=== PATIENT | male | born 1965 | race Caucasian/White ===

== ENCOUNTER 2023-06-25 15:53 | Emergency (ER) | payer OTHER, SELFPAY ==
[2023-06-25] VITALS (23 sets, daily range): BP systolic 140–158; BP diastolic 85–102; PULSE 68–87; RESP 20; TEMP 36.8; O2SAT 92–97
[2023-06-25] MEDS: 0.9 % SODIUM CHLORIDE 1000 ml 1,000 ML IV (16:10)
[2023-06-25] MEDS: EPINEPHrine 0.3 MG PEN IM (16:14)
[2023-06-25] MEDS: diphenhydrAMINE 50 MG/ML inj IVP (16:17)
[2023-06-25] MEDS: METHYLPREDNISOLONE SOD SUCC 62.5 MG/ML (125) 125 MG IVP (16:20)
--- NOTE | 2023-06-25 16:24 | ED_ITS ---
HPI - General Adult General Chief complaint: Allergic Reaction Stated complaint: Swollen mouth -difficulty breathing Time Seen by Provider: 06/25/23 16:04 History of Present Illness HPI narrative: Pt experiencing swelling of lips tongue since around 929. Has gotten worse. SOB now, difficulty swallowing. 57-year-old man presenting to the emergency department with concern of potential allergic reaction. He was reporting swelling of his upper lip and tone increasingly difficult to swallow. A little short of breath. By the time I am seeing him he has received diphenhydramine and Solu-Medrol and a dose of epinephrine prescribed by colleague. Reportedly has had urticaria before. No particular exposure. Has been treated for urticarial eruptions particularly associated with summer heat probably with H2 blockers. Has just started to take this more regularly in the evenings. 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 He is starting to feel less of this tingling with more numbness around his mouth since receiving these medications. Also has a L normal saline running. Related Data Previous Rx's Medication Instructions Recorded prednisone 20 mg tablet 20 mg PO BID 3 days #6 tabs 06/25/23 Allergies Allergy/AdvReac Type Severity Reaction Status Date / Time bee venom protein (honey bee) Allergy Unknown Verified 06/25/23 16:04 Review of Systems Status of ROS: Reports: 6 or more systems reviewed and unremarkable except as noted in History and below [facility] Social History Smoking Status: Unknown if ever smoked Exam Narrative: Exam Narrative: Pleasant. NAD. Breathing easily now. Cranial nerves 2-12 intact. Noticeably swollen upper lip. No indication of trauma. Oropharynx with full tongue. I do not hear any stridor. Lungs are clear good air movement. CV RRR no MRG and this is after epinephrine. Abdomen is soft and nontender. Extremities are well perfused without edema. Const: Vital Signs, click to edit/add: Vital Signs - 24 hr 06/25/23 16:02 Pulse Rate [Pulse Oximeter] 68 Respiratory Rate 20 Blood Pressure [Ri ght Upper Arm] 153/102 H Pulse Oximetry 95 Oxygen Delivery Me thod Room Air Documenting provider has reviewed patient's vital signs: yes Course Vital Signs Vital signs: Initial Vital Signs Pulse Rate 68 06/25/23 16:02 Respiratory Rate 20 06/25/23 16:02 Blood Pressure 153/102 H 06/25/23 16:02 Blood Pressure Mean 119 H 06/25/23 16:02 Blood Pressure Position Sitting 06/25/23 16:02 Pulse Oximetry 95 06/25/23 16:02 Oxygen Delivery Method Room Air 06/25/23 16:02 Vital Signs Pulse Rate 68 06/25/23 16:02 Respiratory Rate 20 06/25/23 16:02 Blood Pressure 153/102 H 06/25/23 16:02 Pulse Oximetry 95 06/25/23 16:02 Oxygen Delivery Method Room Air 06/25/23 16:02 Temperature 98.2 F 06/25/23 18:09 Pulse Rate 76 06/25/23 19:30 Respiratory Rate 20 06/25/23 16:02 Blood Pressure 149/94 H 06/25/23 19:01 Pulse Oximetry 94 06/25/23 19:30 Oxygen Delivery Method Room Air 06/25/23 16:02 Medical Decision Making MDM Narrative Medical decision making narrative: Does appear to be having allergic reaction of some sort. Will need to be monitored for some time on environmental monitoring specialist and oximetry. Monitoring for treatment affect. Monitored without further event in the emergency department. On a couple of reassessments over time appears to have less swelling of his upper lip. Reported subjectively less symptoms as well. Stable. See patient discharge plan Medical Records Medical records reviewed: Yes I reviewed the patient's medical records Lab Data Labs: Lab Results 06/25/23 Range/Units 16:05 POC Troponin I 0.00 L (0.01-0.04) ng/ml ECG Data Attestation: I personally reviewed and interpreted this ECG as follows: (Normal sinus rhythm rate of 65. No ischemic changes.) Discharge Plan Discharge Clinical Impression: Anaphylaxis Patient Disposition: Home w/ Parent or Adult Condition: Improved Additional Instructions: Stay well-hydrated. I am prescribing prednisone for the next 3 days. For itch and breakthrough symptoms take diphenhydramine. If start to feel like having quickly increasing difficulty breathing or throat tightness I would also use your EpiPen and present to the emergency department. You might consider formal evaluation/testing with an apple peeler operator for a more clear answer as to what is going on. Problems with mast cells come to mind. Montelukast can be helpful in that case. Maybe discuss all this with your primary care provider? Prescriptions: New prednisone 20 mg tablet 20 mg PO BID 3 Days Qty: 6 1RF Follow Up/Referrals: Provider,Not a Local [Primary Care Provider] - Stand Alone Forms: [employer] Info Instructions
== END 2023-06-25 19:41 | disposition home or self-care (01) ==
PROVIDERS: Student in an Organized Health Care Education/Training Program; Emergency Provider Family Medicine
DX: R13.10 Dysphagia, unspecified (principal); T78.2XXA Anaphylactic shock, unspecified, initial encounter
CPT/HCPCS: 36415; 84484; 93005; 94761; 96372; 96374; 96375; 99284; J0171; J1200; J2930; J7030

== ENCOUNTER 2023-08-28 10:57 | Outpatient (CLI) | payer OTHER, SELFPAY | END 2023-08-28 10:58 | disposition home or self-care (01) | PROVIDERS: Visit Provider Nurse Practitioner Family | DX: Z00.00 Encounter for general adult medical examination without abnormal findings (principal); E78.5 Hyperlipidemia, unspecified; R73.03 Prediabetes; I10 Essential (primary) hypertension; Z12.5 Encounter for screening for malignant neoplasm of prostate | CPT/HCPCS: 80053; 80061; G0103 ==

== ENCOUNTER 2023-11-06 09:24 | Emergency (ER) | payer OTHER, SELFPAY ==
[2023-11-06 09:37] VITALS: BP 160/101; PULSE 68; RESP 16; TEMP 36.8; O2SAT 97; BMI 29.1
--- NOTE | 2023-11-06 11:08 | ED_ITS ---
HPI - General Adult General Chief complaint: GI Bleed Stated complaint: black/tar stool, blood taste in mouth Time Seen by Provider: 11/06/23 11:08 History of Present Illness HPI narrative: Has been having black tarry stools for 5 days. Bloated X3 days. Taste of blood in mouth this morning. States he drinks ETOH every once in a while. Has hx of diverticulitis. Does feel dizzy and light headed. No vomiting. Had hives over body that started 2 months ago. Has been taking pepcid and zafrlukask. 57 year old man presenting to the ER with concern of black sticky stools. This has been going on now for about 5 days. Numerous episodes per day though has only had 1 bowel movement over the last 6 hours at the time of this interview mid day. He noticed that he was tasting some blood in his mouth this morning. Has not had nausea nor is he experienced any hematemesis. Does have a history of diverticulitis. Describes a pretty bad flare though number of years ago. Notes that his testicles were even dark. Severe belly pain at that time. He does not recall exactly where the diverticulitis was. Was not treated here no imaging available to confirm. Did have colonoscopy noting diverticular disease and endoscopy about 10 years ago. Has been taking Pepcid and mast cell stabilizer with history of hives. He says that abdominal pain has been crampy and sharp and diffuse. He has not had a fever. Is actually due about next week for scheduled colonoscopy. The abdominal pain that he has had with diverticulitis flares in the past he demonstrates tends to be pretty much over total abdomen. Related Data Home Medications Medication Instructions Recorded Confirmed acetaminophen 500 mg tablet 500 mg PO ONCE 08/28/23 11/06/23 (Tylenol Extra Strength) amlodipine 10 mg tablet 10 mg PO QDAY 08/28/23 11/06/23 levocetirizine 5 mg tablet 10 mg PO .prn PRN 08/28/23 11/06/23 (Allergy Relief (levocetirizine)) naproxen sodium 220 mg tablet 220 mg PO ONCE 08/28/23 11/06/23 (Aleve) simvastatin 20 mg tablet 20 mg PO QDAY 08/28/23 11/06/23 famotidine 20 mg tablet (Pepcid) 20 mg PO DAILY 11/06/23 11/06/23 zafirlukast 20 mg tablet 20 mg PO Q12H 11/06/23 11/06/23 Previous Rx's Medication Instructions Recorded sertraline 50 mg tablet 100 mg (2 x 50 mg) PO QDAY #180 08/28/23 tabs epinephrine 0.3 mg/0.3 mL 0.3 mg (0.3 mL) IM ONCE #2 ea 09/11/23 injection, auto-injector metformin 1,000 mg tablet 1,000 mg PO BID #180 tabs 10/25/23 Allergies Allergy/AdvReac Type Severity Reaction Status Date / Time bee venom protein (honey bee) Allergy Unknown Verified 11/06/23 09:37 Review of Systems Status of ROS: Reports: 6 or more systems reviewed and unremarkable except as noted in History and below PFSH PFS Medical History Skin cancer (melanoma) ?C43.9 - Malignant melanoma of skin, unspecified (ICD-10) Hyperlipidemia ?E78.5 - Hyperlipidemia, unspecified (ICD-10) Hypertension ?I10 - Essential (primary) hypertension (ICD-10) Urticaria ?L50.9 - Urticaria, unspecified (ICD-10) Depression ?F32.A - Depression, unspecified (ICD-10) Surgical History H/O vasectomy ?Z98.52 - Vasectomy status (ICD-10) Hx of tonsillectomy ?Z90.89 - Acquired absence of other organs (ICD-10) Hx of appendectomy ?Z90.49 - Acquired absence of other specified parts of digestive tract (ICD- 10) H/O arthroscopic knee surgery ?Z98.890 - Other specified postprocedural states (ICD-10) Family History Father Dementia Diabetes Melanoma Mother Cardiovascular disease Stroke Myocardial infarction High blood pressure Brother Depression Suicide Sister Melanoma High blood pressure Thyroid disease Social History Narrative: Lives with his Polly. Two adult children from a previous marriage ages 26 and 29. 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 Physical activity type: walking How many days of moderate to strenuous exercise, like a brisk walk, did you do in the last 7 days: 3 Smoking Status: Never smoker How often do you have a drink containing alcohol: 2-3 times a week Alcohol type: beer Alcohol type details: One beer nightly AUDIT-C Alcohol total score: 3 Non-prescribed substance use: denies use Caffeine: Yes Are you now , , , , never or living with a partner: Social isolation score (0-1 are the most socially isolated patients): 1 Little interest or pleasure in doing things: more than half the days Feeling down, depressed, or hopeless: more than half the days Are you currently sexually active: Yes Exam Narrative: Exam Narrative: Is pleasant. NAD. Rolando complexion to his skin. Breathing easily. Lungs are clear. Heart in regular rate and rhythm. Cranial nerves 2-12 intact removing all extremities out difficulty. He is well-perfused. Abdomen is with normoac tive bowel sounds add is soft. Overweight. Diffusely mildly tender though more so in the right mid upper abdomen. Harding's negative. Absent peritoneal signs. Const: Vital Signs, click to edit/add: Vital Signs - 24 hr 11/06/23 12:03 Pulse Rate [orthos tatic lying] 70 Pulse Rate [orthos tatic sitting] 76 Pulse Rate [orthos tatic standing] 82 Blood Pressure [or thostatic lying] 143/90 H Blood Pressure [or thostatic sitting] 153/101 H Blood Pressure [or thostatic standing ] 150/95 H Documenting provider has reviewed patient's vital signs: yes Course Vital Signs Vital signs: Initial Vital Signs Temperature 98.3 F 11/06/23 09:37 Temperature Source Temporal Artery Scan 11/06/23 09:37 Pulse Rate 68 11/06/23 09:37 Pulse Rhythm Regular 11/06/23 09:37 Pulse Strength 3+ Normal 11/06/23 09:37 Respiratory Rate 16 11/06/23 09:37 Blood Pressure 160/101 H 11/06/23 09:37 Blood Pressure Mean 120 H 11/06/23 09:37 Blood Pressure Position Sitting 11/06/23 09:37 Pulse Oximetry 97 11/06/23 09:37 Oxygen Delivery Method Room Air 11/06/23 09:37 Vital Signs Temperature 98.3 F 11/06/23 09:37 Pulse Rate 68 11/06/23 09:37 Respiratory Rate 16 11/06/23 09:37 Blood Pressure 160/101 H 11/06/23 09:37 Pulse Oximetry 97 11/06/23 09:37 Oxygen Delivery Method Room Air 11/06/23 09:37 Temperature 98.3 F 11/06/23 09:37 Pulse Rate 70 11/06/23 12:03 Respiratory Rate 16 11/06/23 09:37 Blood Pressure 143/90 H 11/06/23 12:03 Pulse Oximetry 97 11/06/23 09:37 Oxygen Delivery Method Room Air 11/06/23 09:37 Medications Administered Medications: Discontinued Medications Generic Name Dose Route Start Last Admin Trade Name Freq PRN Reason Stop Dose Admin Sodium Chloride 1,000 mls @ 1,000 mls/hr 11/06/23 11:21 11/06/23 12:37 0.9 % Sodium Chloride 1000 Ml IV 11/06/23 12:20 Infused .Q1H ONE Infusion Medical Decision Making [facility] Narrative Medical decision making narrative: This may be upper or lower GI bleed given his descriptor. Will try to obtain stool guaiac. Does not have abdominal surgeries. Does not seem to be an obstructive process. Will check labs. I would anticipate treatment for diverticulitis as described. Does not have any other infectious indicators. Does not appear to be septic. He had reported some lightheadedness today. Will check orthostatics. IV placement and a L of fluids with reassessment. Pending hemoglobin to determine next course of action. Not sure that CT imaging would be particularly helpful. If this is indeed GI bleed does have this colonoscopy upcoming soon. Orthostatics are normal though reporting sense of lightheadedness. Labs are reassuring including normal white count. Normal hemoglobin Unclear that this is diverticulitis though consistent with his prior experiences. Did not feel he needed any interventions for pain or nausea during time in the emergency department. No further stool or evidence of bleeding; no stool guaiac collected. See patient discharge plan for further discussion Lab Data Lab results reviewed: Yes I reviewed the patient's lab results Labs: Lab Results 11/06/23 Range/Units 11:37 WBC 7.62 (4.50-11.00) K/uL RBC 5.42 (4.30-5.90) m/uL Hgb 16.1 (13.5-17.5) gm/dL Hct 45.5 (37.0-53.0) % MCV 84 (80-100) fL MCH 30 (26-34) pg MCHC 35 (32-36) gm/dL RDW Coeff of Yelena 11.7 (11.5-15.5) % Plt Count 239 (140-440) K/uL Neut % (Auto) 48.4 (42.0-72.0) % Lymph % (Auto) 39.6 (20-44) % [place] % (Auto) 8.5 (0.0-11.0) % Eos % (Auto) 2.9 (0.0-7.0) % Baso % (Auto) 0.1 (0.0-3.0) % Neut # (Auto) 3.68 (1.7-7.0) K/uL Lymph # (Auto) 3.02 H (0.90-2.90) K/uL [place] # (Auto) 0.60 (0.00-0.90) K/UL Eos # (Auto) 0.22 (0.00-0.50) K/uL Baso # (Auto) 0.01 (0.00-0.30) K/uL Abs Immat Gran (auto) 0.04 (0.00-0.30) K/uL Imm/Tot Granulo (auto) 0.5 % Sodium 138 (135-149) mmol/L Potassium 3.9 (3.6-5.1) mmol/L Chloride 103 (96-114) mmol/L Carbon Dioxide 27 (20-32) mmol/L Anion Gap 8 (7-15) mEq/L BUN 15 (7-30) mg/dL Creatinine 0.8 (0.5-1.5) mg/dL Estimated Creat Clear 93.04 Estimated GFR 104 ml/min Glucose 171 H (60-115) mg/dL Calcium 9.4 (8.4-10.6) mg/dL Total Bilirubin 0.6 (0.1-1.5) mg/dL Direct Bilirubin 0.3 (0.0-0.5) mg/dL AST 34 (12-35) U/L ALT 43 (4-50) U/L Alkaline Phosphatase 71 (40-150) U/L C-Reactive Protein 0.6 (0.5-1.0) mg/dL Total Protein 7.8 (6.0-8.3) g/dL Albumin 4.7 (3.3-5.0) g/dL Lipase 39 (23-300) U/L Discharge Plan Discharge Clinical Impression: Dark stools, Abdominal pain Patient Disposition: Home, Self-Care Condition: Improved Additional Instructions: You may well have diverticulitis. Thankfully your hemoglobin and white count look good. Sometimes after a stomach bug there can be quite a change in stool appearance. This dark stool though may also represent blood that accompanies inflammation. I am happy you have have follow-up colonoscopy shortly. Metronidazole and ciprofloxacin from [facility]. Take these antibiotics for 8 days. Focus on hydration. Return/be seen for marked increase in persistent abdominal pain, worsening lightheadedness, associated fever, repeated vomiting. Prescriptions: No Action simvastatin 20 mg tablet 20 mg PO QDAY levocetirizine [Allergy Relief (levocetirizin)] 5 mg tablet 10 mg PO .prn PRN amlodipine 10 mg tablet 10 mg PO QDAY acetaminophen [Tylenol Extra Strength] 500 mg tablet 500 mg PO ONCE naproxen sodium [Aleve] 220 mg tablet 220 mg PO ONCE sertraline 50 mg tablet 100 mg PO QDAY Qty: 180 3RF famotidine [Pepcid] 20 mg tablet 20 mg PO DAILY zafirlukast 20 mg tablet 20 mg PO Q12H epinephrine 0.3 mg/0.3 mL auto-injector 0.3 mg IM ONCE Qty: 2 0RF Rx Instructions: as a single dose; may repeat once metformin 1,000 mg tablet 1,000 mg PO BID Qty: 180 3RF Follow Up/Referrals: Lilian Paulson CNP [Primary Care Provider] - Stand Alone Forms: [employer] Info Instructions
[2023-11-06] MEDS: 0.9 % SODIUM CHLORIDE 1000 ml 1,000 ML IV (11:40)
[2023-11-06 11:42] LABS: Basophils Absolute Auto 0.01 K/uL (0.00-0.30); Basophils Percent Auto 0.1 % (0.0-3.0); Eosinophils Absolute Auto 0.22 K/uL (0.00-0.50); Eosinophils Percent Auto 2.9 % (0.0-7.0); Hematocrit 45.5 % (37.0-53.0); Hemoglobin* 16.1 gm/dL (13.5-17.5); Immature Granulocytes Abs Auto 0.04 K/uL (0.00-0.30); Immature Granulocytes Pct Auto 0.5 %; Lymphocytes Absolute Auto 3.02 K/uL (0.90-2.90); Lymphocytes Percent Auto 39.6 % (20-44); Mean Corpuscular HGB Conc 35 gm/dL (32-36); Mean Corpuscular Hemoglobin 30 pg (26-34); Mean Corpuscular Volume 84 fL (80-100); Monocytes Percent Auto 8.5 % (0.0-11.0); Neutrophils Absolute Auto 3.68 K/uL (1.7-7.0); Neutrophils Percent Auto 48.4 % (42.0-72.0); Platelet Count* 239 K/uL (140-440); RDW Coefficient of Variation % 11.7 % (11.5-15.5); Red Blood Count 5.42 m/uL (4.30-5.90); White Blood Count* 7.62 K/uL (4.50-11.00)
[2023-11-06 11:44] LABS: Slide Review Reflex No
[2023-11-06 11:56] LABS: Chloride* 103 mmol/L (96-114)
[2023-11-06 11:57] LABS: Potassium* 3.9 mmol/L (3.6-5.1); Sodium* 138 mmol/L (135-149)
[2023-11-06 11:58] LABS: Albumin* 4.7 g/dL (3.3-5.0)
[2023-11-06 11:59] LABS: Creatinine* 0.8 mg/dL (0.5-1.5); Est. Creatinine Clearance* 93.04; Estimated Glomerular Filt Rate 104 ml/min
[2023-11-06 12:00] LABS: Anion Gap 8 mEq/L (7-15); Blood Urea Nitrogen* 15 mg/dL (7-30); Calcium* 9.4 mg/dL (8.4-10.6); Carbon Dioxide* 27 mmol/L (20-32); Glucose* 171 mg/dL (60-115)
[2023-11-06 12:01] LABS: Alanine Aminotransferase* 43 U/L (4-50); Alkaline Phosphatase* 71 U/L (40-150); Aspartate Amino Transferase* 34 U/L (12-35); Bilirubin Direct* 0.3 mg/dL (0.0-0.5); Bilirubin Total* 0.6 mg/dL (0.1-1.5); Lipase* 39 U/L (23-300); Total Protein* 7.8 g/dL (6.0-8.3)
[2023-11-06 12:03] VITALS: BP 143/90; BP 150/95; BP 153/101; PULSE 70; PULSE 76; PULSE 82
[2023-11-06 12:03] LABS: C Reactive Protein* 0.6 mg/dL (0.5-1.0)
== END 2023-11-06 13:23 | disposition home or self-care (01) ==
PROVIDERS: Emergency Provider Family Medicine; PCP Nurse Practitioner Family
DX: R19.5 Other fecal abnormalities (principal); R10.9 Unspecified abdominal pain
CPT/HCPCS: 36415; 80048; 80076; 83690; 85025; 86140; 99283; 99284; J7030

== ENCOUNTER 2024-03-01 08:29 | Outpatient (CLI) | payer OTHER, SELFPAY ==
--- OUTSIDE RECORDS SUMMARY | 2024-03-01 08:33 | XMS_ITS | Encounter Summary ---
Author Organization [facility] Address [address] [place] [address] Care Team Providers Care Brass Molder Helper Name Role Phone Unavailable Primary Care Provider Unavailabl e Reason for Visit * Outpatient (Routine) - Closed Specialty Diagnoses / Procedures Referred By Contdoyle t Referred To Contact Allergy and Immunology Diagnoses Other Urticaria Lilian Paulson, F.N.P. [address] [place] [address] [facility] Referral ID Status Reason Start Date Expiration Date Visits Re quested Visits Authorized [id number] Closed 11/14/2023 05/15/2025 1 1 Encounter Details Date Type Department Care Team (Latest Contact Info) Description 12/01/2023 8:30 AM CDT Comprehensive Visit Division of Allergic Diseases in [place], [place] [address] [place] [address] Arturo Velásquez, M.B.B.S., Ph.D. [address] [place] [address] Other Urticaria Social History Tobacco Use Types Packs/Day Years Used Date Smoking Tobacco: Never Assessed [facility] Utilities Answer Date Recorded In the past 12 months has [employer], gas, oil, or water company threatened to shut off services in your home? No 11/30/2023 Exercise Vital Sign Answer Date Recorde d On average, how many days pe r week do you engage in moderate to strenuous exercise (like a brisk walk)? 1 day 11/30/2023 On average, how many minutes do you engage in exercise at this level? 20 min 11/30/2023 Hunger Vital Sign Answer Date Recorded Within the past 12 months, y ou worried that your food would run out before you got the money to buy more. Never true 11/30/19 24 Within the past 12 months, t he food you bought just didn't last and you didn't have money to get more. Never true 11/30/2023 PRAPARE - Transportation Answer Date Re corded In the past 12 months, has l ack of transportation kept you from medical appointments or from getting medications? No 02/2024 In the past 12 months, has l ack of transportation kept you from meetings, work, or from getting things needed for daily living? No 11/30/2023 Nutrition Answer Date Recorded Nutrition: EVOO Fat Source Unknown 11/29 On average, how many serving s of fruits and vegetables do you eat per day (serving size is equal to 1 cup or approximately the size of a tennis ball)? 3-5 11/30/2023 Dental Answer Date Recorded Dental: Regular Dentist Yes 11/30/19 Employment Answer Date Recorded Employment status Employed and actively working without restrictions 11/30/2023 Housing Stability Answer Date Recorded What is your living situation today? I have a [facility] place to live 11/30/2023 Sex and Gender Information Value Date Recorded Sex Assigned at Male 11/30/2023 3:02 PM CDT Gender Identity Male 11/30/2023 3:02 PM CDT Sexual Orientation Straight 11/30/2023 3: 02 PM CDT documented as of this encounter Last Filed Vital Signs Vital Sign Reading Time Taken Comments Blood Pressure - - Pulse - - Temperature 36.7 ??C (98.1 ??F) 12/01/2023 7:28 AM CD T Respiratory Rate - - Oxygen Saturation - - Inhaled Oxygen Concentration - - Weight 85.7 kg (188 lb 15 oz) 12/01/2023 7:28 AM CDT Height 168.7 cm (5' 6.42) 12/01/2023 7:28 AM CD T Body Mass Index 30.11 12/01/2023 7:28 AM CDT documented in this encounter H&P Notes * Arturo Velásquez M.B.B.S., Ph.D. - 12/01/2023 8:30 AM CDT Mr.Daniel Wray is a 58 y.o. male who presents to the Division of Allergic Diseases for No chief complaint on file. . He has been referred by Lilian Paulson F.N.P. [address] [place] [phone] HPI: complains of 'hives' which started 5 years ago in summer. Started on lower extremity but asthe weeks progressed were intermittent and became generalized. Benadryl helped. Heat was a trigger initially. 1.5 years ago, came on all over, last 1 hour with treatment. Episode of lip swelling in june and then again in July 2023 and August 2023. The lesions last less than 24 hours . The lesions are associated with intense itching. There is no associated burning or pain in the lesions. Individual lesions disappear and reappear in locations different from prior location. Areas affectedare generalized . Lesions resolve without residual signs of post inflammatory hyperpigmentation, bruising, bleeding or scarring. On a scale of 1 to 10 (0 being none and 10 being most) itching is 10 of 10 when severe and 1 at baseline. Itching does awaken patient at night or keep from falling asleep. Number of flare ups occur 7 times a week thought has been hive free since last 3 week. Acute lesions are not present today. Hives are associated with swelling of lips, tongue. No involvement of face, eyelids. One episode ofthroat swelling, had to go to ER, got Epipen. There is no associated history of abdominal pain during episodes of hives. Episode of hives was not preceded by an acute infectious episode There is no specific relationship of angioedema or urticaria attacks to drug intake, insect stings,or other unusual exposures. The patient has not identified potential triggers for the recurrent andchronic flare up. Prior evaluation for this has been performed. Patient does not have a family history of similar episodes. Patient as on MIKEY inhibitors. He is able to tolerate NSAIDs. Other co-morbidities reported by are Liver disease: absent Renal disease: absent Hep B or Hep C infection: absent Autoimmune disease (Lupus, RA, MCTD etc): absent Thyroid dysfunction: absent Possible associations and triggers identified by are Medications: absent Foods: absent Aeroallergens like pollen, mold etc: absent Heat: present Humidity: absent Cold: absent Water: absent Pressure: present Sunlight: absent Current Outpatient Medications: amLODIPine (NORVASC) 10 mg tablet, Take 1 tablet by mouth daily., Disp: , Rfl: amLODIPine-atorvastatin (CADUET) 10-10 mg per tablet, , Disp: , Rfl: EPINEPHrine 0.3 mg/0.3 mL injection syringe, INJECT 0.3 MG (0.3 ML) INTRAMUSCULARLY ONCE A SINGLE DOSE MAY REPEAT ONCE, Disp: , Rfl: famotidine (PEPCID) 20 mg tablet, TAKE 1 TABLET BY MOUTH TWICE A DAY FOR HIVES. NOT COVERED, Disp: , Rfl: levocetirizine (XYZAL) 5 mg tablet, , Disp: , Rfl: metFORMIN (GLUCOPHAGE) 1,000 mg tablet, , Disp: , Rfl: omeprazole (PriLOSEC) [address] capsule, , Disp: , Rfl: predniSONE (DELTASONE) 20 mg tablet, Take 2 tablets by mouth daily., Disp: , Rfl: sennosides (SENOKOT) 15 mg tablet, Take 15 mg by mouth., Disp: , Rfl: sertraline (ZOLOFT) 100 mg tablet, , Disp: , Rfl: simvastatin 20 mg/5 mL (4 mg/mL) suspension, , Disp: , Rfl: zafirlukast (ACCOLATE) 20 mg tablet, , Disp: , Rfl: hylan g-f 20 (SYNVISC-ONE) 48 mg/6 mL injection, Inject 48 mg into the joint., Disp: , Rfl: ibuprofen (ADVIL,MOTRIN) 200 mg tablet, Take 400 mg by mouth., Disp: , Rfl: venlafaxine XR (EFFEXOR-XR) 75 mg 24 hr capsule, Take 75 mg by mouth daily., Disp: , Rfl: has no past medical history on file. has no past surgical history on file. Social History Socioeconomic History Marital status: Spouse name: Not on file Number of children: Not on file Years of education: Not on file Highest education level: Not on file Occupational History Not on file Tobacco Use Smoking status: Not on file Smokeless tobacco: Not on file Substance and Sexual Activity Alcohol use: Not on file Drug use: Not on file Sexual activity: Not on file Other Topics Concern Not on file Social History Narrative Not on file Social Determinants of Health Food Insecurity: No Food Insecurity (11/30/2023) Hunger Vital Sign Worried About Running Out of Food in the Last Year: Never true Ran Out of Food in the Last Year: Never true Transportation Needs: No Transportation Needs (11/30/2023) PRAPARE - Transportation Lack of Transportation (Medical): No Lack of Transportation (Non-Medical): No Physical Activity: Insufficiently Active (11/30/2023) Exercise Vital Sign Days of Exercise per Week: 1 day Minutes of Exercise per Session: 20 min Intimate Partner Violence: Not on file Housing Stability: Low Risk (11/30/2023) Housing Stability Housing: Living Situation: I have a steady place to live ROS: as per the HPI EXAM: Temp 36.7 ??C (Tympanic) Ht 168.7 cm Wt 85.7 kg BMI 30.11 kg/m?? General Appearance: Alert, cooperative, no distress, appears stated age Head: Normocephalic, without obvious abnormality, atraumatic Eyes: Extraocular movements intact Ears: External ears normal. Nose: External nose normal, septum midline, mucosa is not erythematous.Excess secretions are not present. Throat: Cobblestoning absent Neck: Supple, symmetrical Thyroid: gross thyroid enlargement is not seen. Lungs: tidal respirations, speaks full sentence. Abdomen: does not appear to be distended Extremities: no cyanosis or edema Skin: Skin color, texture, turgor normal, no rashes or lesions Lymph nodes: Cervical, supraclavicular, nodes normal IMPRESSION #1 Other Urticaria PLAN #1 Other Urticaria - Allergy Referral is here for a second opinion regarding chronic hives and angioedema. has been previously treated with once daily antihistamines and corticosteroids. I had a detailed discussion with Fito regarding the etiology and pathogenesis of chronic urticaria as we know of it today. I also had a detailed discussion regarding the differentials for the condition which includes chronic secondary urticaria especially if there is presence of abnormality in the basic blood work that might indicate systemic diseases. Historically there are no clinical flags which may suggest as such. As such, the plan for us going forward is to perform limited workup today. As far as the management of the condition, I discussed that chronic urticaria is often a self-limiting condition. However, the duration of the disease can vary immensely from weeks to years. Symptom control is usually managed by combination therapy with a variety of medications with dose escalationas per the protocol that is outlined below. 1. Step one: Levocetirizine 10 mg daily. 2. Step two: Levocetirizine 10 mg two times a day. 3. Step three: Levocetirizine 10 mg three times a day. 4. Step four: Levocetirizine 10 mg four times a day 5. Step five: Step 4 plus addition of Singulair 10 mg daily He is on Diallo's medication - Pepcid and Omeprazole. R He should give each step 1 weeks to assess the need for additional therapy, if needed go to next step. Once he finds a step that seems to control his hives satisfactorily, stay on it for 4 months andthen start de-escalation in reverse order. If needed, He can go up on the dose again to account forflares. I also discussed that if side effects of antihistamine are intolerable, then he may cut back on levocetirizine and add on the famotidine and Singulair at earlier steps to see if that causes symptom relief. Recommend considering warehouse pharmacies ([facility] or [facility]) to limit the cost of OTC medication, may find them cheaper there. Even though this has been tried in past with limited benefit, it may be reasonable to revisit this at this point in time. 7. I also discussed additionally difficult to manage hive or red flags (suggestive of autoimmune disease) are indication for a biopsy to assess for some of the other autoimmune conditions which mightpresent with urticaria. No indication for biopsy today 8. He does not seem to endorse any systemic periodicity with his hives that may suggest auto-inflammatory syndromes 9. Additionally, we discussed utility of prednisone which would be only used as a short-term suppression measure such as 50 mg once a day for four days to control an acute flare, and then he can go on to doing the maintenance medications after that. 10. We also briefly discussed the option of using a second-line agent such as Omalizumab (Xolair), which may be actually preferred in case urticaria is non- responsive to first line regimen (antihistamine and the other). 11. He will need care of a board certified bell attendant closer to her home who may be able to assist with the coordination of care needed in this complex disease. Additionally, if approved, Omalizumab infusions would be needed to be performed in the allergists' office with wait time post. I will be happy to provide notes, work up and clinical notes at that time 12. We also discussed option of third line agents (immunomodulators and immunosuppressants) should the hives prove refractory to conventional regimen and Omalizumab. 13. We discussed in detail the contribution of health anxiety and stress on hives and encouraged identification of personal stressors, and taking steps to mitigate the stresses by techniques such as yoga, breathing, mindfulness, meditation etc. Informed consent We discussed the risks and benefits of the recommendations offered by me today including the rationale for those recommendations. Additionally, we discussed the medications, common side effects and drug-drug interactions. There were no perceived barriers to communication and he verbalized excellentunderstanding of our discussion. All questions were answered to his satisfaction, and is encouraged access to patient online portal to revise and review discussion [and follow up on test results]. seemed satisfied with visit today and thanked me for the time spent explaining the issues and had no further questions. SIGNATURE: Omkar Tidwell, Ph.D. CC: Lilian Paulson, F.N.P. documented in this encounter Plan of Treatment Not on file documented as of this encounter Visit Diagnoses Diagnosis Other Urticaria documented in this encounter
--- OUTSIDE RECORDS SUMMARY | 2024-03-01 08:33 | XMS_ITS | Encounter Summary ---
Author Organization [facility] Address [address] [place] [address] Care Team Providers Care Travel Occupational Therapist Name Role Phone Unavailable Primary Care Provider Unavailabl e Encounter Details Date Type Department Care Team (Latest Contact Info) Description 12/01/2023 6:34 AM CDT Hospital Encounter Department of Laboratory Medicine and Pathology, [facility], in [place], [place] [address] [place] [address] Arturo Velásquez, M.B.B.S., Ph.D. [address] [place] [address] Angioedema Personal History; Urticaria Idiopathic Discharge Disposition: Home or Self Care Social History Tobacco Use Types Packs/Day Years Used Date Smoking Tobacco: Never Assessed [facility] Utilities Answer Date Recorded In the past 12 months has [facility] [employer], gas, oil, or water [employer] threatened to shut off services in your [...] your living situation today? [facility] 11/30/2023 Sex and Gender Information Value Date Recorded Sex Assigned at Male 11/30/2023 3:02 PM CDT Gender Identity Male 11/30/2023 3:02 PM CDT Sexual Orientation Straight 11/30/2023 3: 02 PM CDT documented as of this encounter Medications at Time of Discharge Medication Sig Dispensed Refills Start Date End Date amLODIPine (NORVASC) 10 mg tablet Take 1 tablet by mouth daily. 10/18/2023 amLODIPine-atorvastat in (CADUET) 10-10 mg per tablet 08/26/2020 EPINEPHrine 0.3 mg/0.3 mL injection syringe INJECT 0.3 MG (0.3 ML) INTRAMUSCULARLY ONCE A SINGLE DOSE MAY REPEAT ONCE 09/11/2023 famotidine (PEPCID) 20 mg tablet TAKE 1 TABLET BY MOUTH TWICE A DAY FOR HIVES. NOT COVERED 11/13/2023 hylan g-f 20 (SYNVISC-ONE) 48 mg/6 mL injection Inject 48 mg into the joint. 05/25/2020 levocetirizine (XYZAL) 5 mg tablet 12/28/2022 metFORMIN (GLUCOPHAGE) 1,000 mg tablet 10/25/2023 omeprazole (PriLOSEC) [address] capsule 10/25/2023 predniSONE (DELTASONE) 20 mg tablet Take 2 tablets by mouth daily. 11/13/2023 sennosides (SENOKOT) 15 mg tablet Take 15 mg by mouth. 08/09/2009 sertraline (ZOLOFT) 100 mg tablet 08/31/2022 simvastatin 20 mg/5 mL (4 mg/mL) suspension 09/28/2022 zafirlukast (ACCOLATE) 20 mg tablet 12/28/2022 documented as of this encounter Plan of Treatment Not on file documented as of this encounter Procedures Procedure Name Priority Date/Time Associated Diagnosis Comments CONNECTIVE TISSUE DISEASE CASCADE, DAVID, S Routine 12/01/2023 6:53 AM CDT Angioedema Personal History Urticaria Idiopathic IMMUNOGLOBULIN E (IGE), S Routine 12/01/2023 6:53 AM CDT Angioedema Personal History Urticaria Idiopathic IMMUNOGLOBULIN M (IGM), S Routine 12/01/2023 6:53 AM CDT Angioedema Personal History Urticaria Idiopathic THYROID FUNCTION CASCADE, S Routine 12/01/2023 6:52 AM CDT Angioedema Personal History Urticaria Idiopathic CU INDEX - SENT OUT LAB Routine 12/01/19 24 6:52 AM CDT Angioedema Personal History Urticaria Idiopathic THYROPEROXIDASE (TPO) ABS, S Routine 12/01/2023 6:52 AM CDT Angioedema Personal History Urticaria Idiopathic SEDIMENTATION RATE, B Routine 12/01/2023 6:52 AM CDT Angioedema Personal History Urticaria Idiopathic C-REACTIVE PROTEIN (CRP), S/P Routine 12/01/2023 6:52 AM CDT Angioedema Personal History Urticaria Idiopathic ALANINE AMINOTRANSFERASE (ALT), S/P Routine 12/01/2023 6:52 AM CDT Angioedema Personal History Urticaria Idiopathic ASPARTATE AMINOTRANSFERASE (AST), S/P Routine 12/01/2023 6:52 AM CDT Angioedema Personal History Urticaria Idiopathic LACTATE DEHYDROGENASE (LD), S Routine 12/01/2023 6:52 AM CDT Angioedema Personal History Urticaria Idiopathic CREATININE WITH EGFR, S/P Routine 12/01/2023 6:52 AM CDT Angioedema Personal History Urticaria Idiopathic documented in this encounter Results * Immunoglobulin M (IgM) (12/01/2023 6:53 AM CDT) Immunoglobulin M (IgM), S 59 37 - 286 mg/dL 12/01/2023 2:01 PM CDT [facility] Blood (Blood, Venous) 12/01/2023 6:53 AM CDT 12/01/2023 10:19 AM CDT Arturo BarrosoB.STonja, Ph.D. LAB BLOO D ADD-ON Performing Organization Address [facility] Co de Phone Number [place] [phone] [place] [address] [place] [address] * Immunoglobulin E (IgE) (12/01/2023 6:53 AM CDT) Pathologist [facility] Immunoglobulin E (IgE), S 15.3 <=214 kU/L 12/01/2023 8:05 PM CDT [facility] Blood (Blood, Venous) 12/01/2023 6:53 AM CDT 12/01/2023 5:12 PM CDT Arturo BarrosoB.STonja, Ph.D. LAB BLOO D ADD-ON Performing Organization Address [facility] Co de Phone Number [place] [phone] [place], [place] [phone] [place] [address] [place] [address] * Connective Tissue Diseases Banks (12/01/2023 6:53 AM CDT) Antinuclear Ab, S 0.2 <=1.0 (Negative ) U 12/01/2023 6:31 PM CDT [facility] Comment: ----ADDITIONAL INFORMATION---- Method: Enzyme-linked immunoassay using HEp-2 nuclear extract supplemented with purified antigens. Cyclic Citrullinated Peptide Ab, S <15.6 <20.0 (Negative ) U 12/01/2023 6:54 PM CDT [facility] Interpretation SEE COMMENT 6:54 PM CDT [facility] Comment: Tests for antibodies to dsDNA and SHANIA antigens are not performed automatically unless the CONOR result is > or = 3.0 U. ??Studies performed at [facility] indicate that positive CONOR results <3.0 U are rarely accompanied by positive second order tests. Blood (Blood, Venous) 12/01/2023 6:53 AM CDT 12/01/2023 10:21 AM CDT Arturo Espitia, Ph.D. LAB BLOO D ADD-ON Performing Organization Address City/State/[facility] Co de Phone Number [facility] [address] [place] [address] [facility] [address] [place] [address] * (ABNORMAL) CU Index - Sent Out Lab (12/01/2023 6:52 AM CDT) [facility] CU Index 40.3(H) <10 12/05/2023 9:36 AM CDT [facility] Comment: The CU Index(R) test is the second generation Functional Anti-FceR test. ??Patients with a CU Index(R) greater than or equal to 10 have basophil reactive factors in their serum which supports an autoimmune basis for disease. *This test was developed and its performance characteristics determined by [employer]. It has not been cleared or approved by the U.S. Food and Drug Administration. FLAG Interpretation: A = Abnormal, H = High, L = Low Blood (Blood, Venous) 12/01/2023 6:52 AM CDT 12/01/2023 9:55 AM CDT rAturo BarrosoBTonjaS., Ph.D. LAB BLOO D NON ADD-ON TRISH VIRACOR, INTERFACE [address], [facility] [place] [address] [place] [address], [facility] Tiarafinchela [place] [address], [facility] [place] [address] [place] [address] * LD (Lactate Dehydrogenase) (12/01/2023 6:52 AM CDT) Lactate Dehydrogenase (LD), S 148 122 - 222 U/L 12/01/2023 8:09 AM CDT DTL Blood (Blood, Venous) 12/01/2023 6:52 AM CDT 12/01/2023 7:38 AM CDT Arturo Espitia, Ph.D. LAB BLOO D NON ADD-ON Performing Organization Address City/[facility] Co de Phone Number [facility] [address] [place] [address], [facility] [address] [place] [address] * AST (Aspartate Aminotransferase) (12/01/2023 6:52 AM CDT) Aspartate Aminotransferase (AST), S 26 8 - 48 U/L 12/01/2023 8:09 AM CDT DTL Blood (Blood, Venous) 12/01/2023 6:52 AM CDT 12/01/2023 7:38 AM CDT Arturo Espitia, Ph.D. LAB BLOO D ADD-ON Performing Organization Address City/[facility] Co de Phone Number [facility] [address] [place] [address], [facility] [address] [place] [address] * ALT (Alanine Aminotransferase) (12/01/2023 6:52 AM CDT) Alanine Aminotransferase (ALT), S 45 7 - 55 U/L 12/01/2023 8:09 AM CDT DTL Blood (Blood, Venous) 12/01/2023 6:52 AM CDT 12/01/2023 7:38 AM CDT Arturo Espitia, Ph.D. LAB BLOO D ADD-ON Performing Organization Address [facility] de Phone Number [facility] [address] [facility] [address] [place] [address] * Creatinine with Estimated GFR (12/01/2023 6:52 AM CDT) Creatinine 1.08 0.74 - 1.35 mg/dL 12/01/2023 8:09 AM CDT DTL Estimated GFR (eGFR) 80 >=60 mL/min/BSA 12/01/2023 8:09 AM CDT DTL Comment: Estimated GFR calculated using the 2020 CKD_EPI creatinine equation. Blood (Blood, Venous) 12/01/2023 6:52 AM CDT 12/01/2023 7:38 AM CDT Arturo BarrosoBTonjaSTonja, Ph.D. LAB BLOO D ADD-ON Performing Organization Address [email or web address]] de Phone Number [facility] 200 [place] [address], [facility] 200 [place] [address] * Sedimentation Rate (12/01/2023 6:52 AM CDT) Sedimentation Rate, B 2 2 - 20 mm/h 12/01/2023 8:12 AM CDT DTL Blood (Blood, Venous) 12/01/2023 6:52 AM CDT 12/01/2023 7:13 AM CDT Arturo BarrosoBTonjaSTonja, Ph.D. LAB BLOO D ADD-ON Performing Organization Address City/[facility]/ZIP Co de Phone Number [facility] [address] [place] [address] * CRP (C-Reactive Protein) (12/01/2023 6:52 AM CDT) Pathologist [facility] C-Reactive Protein (CRP), S 3.9 <5.0 mg/L 12/01/2023 8:09 AM CDT DTL Blood (Blood, Venous) 12/01/2023 6:52 AM CDT 12/01/2023 7:38 AM CDT Arturo Espitia, Ph.D. LAB BLOO D ADD-ON Performing Organization Address [facility] Co de Phone Number [facility] [address] [place] [address] * Thyroid Function Banks (12/01/2023 6:52 AM CDT) Pathologist [facility] TSH, Sensitive 2.5 0.3 - 4.2 mIU/L 12/01/2023 8:09 AM CDT DTL Blood (Blood, Venous) 12/01/2023 6:52 AM CDT 12/01/2023 7:38 AM CDT Arturo Espitia, Ph.D. LAB BLOO D ADD-ON Performing Organization Address City/[facility] Co de Phone Number [facility] [address] [place] [address] * Thyroperoxidase (TPO) Antibodies (12/01/2023 6:52 AM CDT) Pathologist [facility] Thyroperoxidase Ab, S 15.4 <34.0 IU/mL 12/01/2023 8:09 AM CDT DTL Blood (Blood, Venous) 12/01/2023 6:52 AM CDT 12/01/2023 7:38 AM CDT Arturo Espitia, Ph.D. LAB BLOO D ADD-ON [facility] [address] [place] [address], [facility] DTL [facility] [address] [place] [address] documented in this encounter Visit Diagnoses Diagnosis Angioedema Personal History Urticaria Idiopathic documented in this encounter
--- OUTSIDE RECORDS SUMMARY | 2024-03-01 08:33 | XMS_ITS | Encounter Summary ---
Author Organization [facility] Address [address] [place] [address] Care Team Providers Care Director Of Strategy & Mobile Name Role Phone Unavailable Primary Care Provider Unavailabl e Encounter Details Date Type Department Care Team (Latest Contact Info) Description 12/01/2023 6:35 AM CDT - 12/01/2023 11:59 PM CDT Hospital Encounter Department of Laboratory Medicine and Pathology, [facility], in [place], [place] [address] [place] [address] Arturo Velásquez M.B.B.S., Ph.D. [address] [place] [phone] Angioedema Personal History; Urticaria Idiopathic Discharge Disposition: Home or Self Care Social History Tobacco Use Types Packs/Day Years Used Date Smoking Tobacco: Never Assessed [facility] Utilities Answer Date Recorded In the past 12 months has [facility] [employer], gas, oil, or water [employer] threatened to shut off services in your [...] your living situation today? [facility] 11/30/2023 Sex and Gender [...] Inject 48 mg into the joint. 05/25/2020 ibuprofen (ADVIL,MOTRIN) 200 mg tablet Take 400 mg by mouth. levocetirizine (XYZAL) 5 mg tablet 12/28/2022 metFORMIN (GLUCOPHAGE) 1,000 mg tablet 10/25/2023 omeprazole (PriLOSEC) [address] capsule 10/25/2023 predniSONE (DELTASONE) 20 mg tablet Take 2 tablets by mouth daily. 11/13/2023 sennosides (SENOKOT) 15 mg tablet Take 15 mg by mouth. 08/09/2009 sertraline (ZOLOFT) 100 mg tablet 08/31/2022 simvastatin 20 mg/5 mL (4 mg/mL) suspension 09/28/2022 venlafaxine XR (EFFEXOR-XR) 75 mg 24 hr capsule Take 75 mg by mouth daily. zafirlukast (ACCOLATE) 20 mg tablet 12/28/2022 documented as of this encounter Plan of Treatment Not on file documented as of this encounter Procedures Procedure Name Priority Date/Time Associated Diagnosis Comments LEUKOTRIENE E4, RANDOM, U Routine 12/01/2023 7:14 AM CDT Angioedema Personal History Urticaria Idiopathic N-METHYLHISTAMINE, RANDOM, U Routine 12/01/2023 7:14 AM CDT Angioedema Personal History Urticaria Idiopathic ELECTROPHORESIS, PROTEIN, RANDOM, U Routine 12/01/2023 7:14 AM CDT 2,3-DINOR 11B-PROSTAGLANDIN F2A, U Routine 12/01/2023 7:14 AM CDT Angioedema Personal History Urticaria Idiopathic documented in this encounter Results * Electrophoresis, Protein, Random, Urine (12/01/2023 7:14 AM CDT) Protein, Total, Random, U 7 mg/dL 12/01/2023 8:43 AM CDT DTL Creatinine, Random, U 80 16 - 326 mg/dL 12/01/2023 8:43 AM CDT DTL Protein/Creati nine Ratio 0.09 <0.18 mg/mg 12/01/2023 8:43 AM CDT DTL Albumin, mg/dL 2.9 mg/dL 12/03/2023 2:49 PM CDT [facility] Alpha-1 globulin, mg/dL 0.4 mg/dL 12/03/2023 2:49 PM CDT [facility] Alpha-2 globulin, mg/dL 1.3 mg/dL 12/03/2023 2:49 PM CDT [facility] Beta globulin, mg/dL 1.1 mg/dL 12/03/2023 2:49 PM CDT [facility] Gamma globulin, mg/dL 1.3 mg/dL 12/03/2023 2:49 PM CDT [facility] A/G Ratio 0.71 12/03/2023 2:49 PM CDT [facility] Impression All fractions present, no apparent M-spike. 12/03/2023 2:49 PM CDT [facility] Urine 12/01/2023 7:14 AM CDT 12/01/2023 7:14 AM CDT Arturo Espitia, Ph.D. LAB URIN E ORDERABLES Performing Organization Address [facility] Co de Phone Number [facility] [address] [place] [address] [facility] [address] [place] [phone] [facility] [place] [address] * 2,9-Svfci-31Jzbv-Prostaglandin F2 Alpha, Random, Urine (12/01/2023 7:14 AM CDT) Creatinine, Random, U 80 16 - 326 mg/dL 12/01/2023 8:43 AM CDT DTL 2,3-dinor 11B-Prostagland in F2a, U 548 <1802 pg/mg Cr 12/04/2023 9:19 AM CDT [facility] Urine (Urine, Voided) 12/01/2023 7:14 AM CDT 12/01/2023 7:14 AM CDT Arturo Espitia, Ph.D. LAB URIN E ORDERABLES Performing Organization Address [facility] Co de Phone Number [facility] [address] [place] [address] [facility] 200 [place], [place] [phone] [place] [address] DR[address] QUAN [address] [place] [address] * (ABNORMAL) Leukotriene E4, Random, Urine (12/01/2023 7:14 AM CDT) Creatinine, Random, U 80 16 - 326 mg/dL 12/01/2023 8:43 AM CDT DTL Leukotriene E4, Random, U 114(H) <=104 pg/mg Cr 12/05/2023 4:38 PM CDT [facility] Comment: ----ADDITIONAL INFORMATION---- This test was developed and its performance characteristics determined by [facility] in a manner consistent with CLIA requirements. This test has not been cleared or approved by the U.S. Food and Drug Administration. Urine (Urine, Voided) 12/01/2023 7:14 AM CDT 12/01/2023 10:21 AM CDT Arturo Espitia, Ph.D. LAB URIN E ORDERABLES Performing Organization Address City/[facility] Co de Phone Number [facility] [address] [place] [address] [facility] 200 [place] [address] [facility] [address] [place] [address] [place] [address] * N-Methylhistamine, Random, Urine (12/01/2023 7:14 AM CDT) Creatinine, Random, U 80 16 - 326 mg/dL 12/01/2023 8:43 AM CDT DTL N-Methylhistami ne, Random, U 119 30 - 200 mcg/g Cr 12/02/2023 4:08 PM CDT [facility] Urine (Urine, Voided) 12/01/2023 7:14 AM CDT 12/01/2023 7:14 AM CDT Arturo BarrosoBTonjaSTonja, Ph.D. LAB URIN E ORDERABLES Performing Organization Address [facility] Co de Phone Number [facility] [address] [place] [address] [facility] [address] [place] [address] [facility] [address] [place] [address] [place] [address] documented in this encounter Visit Diagnoses Diagnosis Angioedema Personal History Urticaria Idiopathic documented in this encounter
--- OUTSIDE RECORDS SUMMARY | 2024-03-01 08:33 | XMS_ITS | Clinical Summary ---
Author Organization [facility] Address [address] [place] [address] Care Team Providers Care Safety Engineer Name Role Phone Unavailable Primary Care Provider Unavailabl e Source Comments Patient records contain information from all sites at [facility]. For routine questions regarding patient records, call [phone] during business hours, M-F 8:00 AM - 5:00 PM Central Time. Record requests for emergency care only can be directed to [phone] at any time.[facility] Allergies Active Allergy Reactions Criticality Noted Date Comments Hymenoptera Allergenic Extract Anaphylaxis High 03/25 Venom-Honey Bee Anaphylaxis High 08/09/2009 Bee stings Medications Medication Sig Dispensed Refills Start Date End Date Status amLODIPine (NORVASC) 10 mg tablet Take 1 tablet by mouth daily. 10/18/2023 Active amLODIPine-atorvas tatin (CADUET) 10-10 mg per tablet 08/26/2020 Active EPINEPHrine 0.3 mg/0.3 mL injection syringe INJECT 0.3 MG (0.3 ML) INTRAMUSCULARLY ONCE A SINGLE DOSE MAY REPEAT ONCE 09/11/2023 Active famotidine (PEPCID) 20 mg tablet TAKE 1 TABLET BY MOUTH TWICE A DAY FOR HIVES. NOT COVERED 11/13/2023 Active hylan g-f 20 (SYNVISC-ONE) 48 mg/6 mL injection Inject 48 mg into the joint. 05/25/2020 Active ibuprofen (ADVIL,MOTRIN) 200 mg tablet Take 400 mg by mouth. Act debbie levocetirizine (XYZAL) 5 mg tablet 12/28/2022 Active metFORMIN (GLUCOPHAGE) 1,000 mg tablet 10/25/2023 Active omeprazole (PriLOSEC) [address] capsule 10/25/2023 Active predniSONE (DELTASONE) 20 mg tablet Take 2 tablets by mouth daily. 11/13/2023 Active sennosides (SENOKOT) 15 mg tablet Take 15 mg by mouth. 08/09/2009 Acti ve sertraline (ZOLOFT) 100 mg tablet 08/31/2022 Active simvastatin 20 mg/5 mL (4 mg/mL) suspension 09/28/2022 Active venlafaxine XR (EFFEXOR-XR) 75 mg 24 hr capsule Take 75 mg by mouth daily. Active zafirlukast (ACCOLATE) 20 mg tablet 12/28/2022 Active Encounters Date Type Department Care Team Description 12/01/2023 8:30 AM CDT Comprehensive Visit Division of Allergic Diseases in [place], [place] [address] [place] [id number] Arturo Velásquez, M.B.B.S., Ph.D. Other Urticaria 12/01/2023 6:35 AM CDT - 12/01/2023 11:59 PM CDT Hospital Encounter Department of Laboratory Medicine and Pathology, [place], [place] [address] [place] [address] Arturo Velásquez, M.B.B.S., Ph.D. Angioedema Personal History; Urticaria Idiopathic Discharge Disposition: Home or Self Care 12/01/2023 6:34 AM CDT Hospital Encounter Department of Laboratory Medicine and Pathology, [facility] in [place], [place] [address] [place] [address] Arturo Velásquez, M.B.B.S., Ph.D. Angioedema Personal History; [place]icaria Idiopathic Discharge Disposition: Home or Self Care from Last 3 Months Social History Tobacco Use Types Packs/Day Years Used Date Smoking Tobacco: Never Assessed [facility] Utilities Answer Date Recorded In the past 12 months has e [employer], gas, oil, or water company threatened to [...] your living situation today? [facility] 11/30/2023 Sex and Gender Information Value Date Recorded Sex Assigned at Male 11/30/2023 3:02 PM CDT Gender Identity Male 11/30/2023 3:02 PM CDT Sexual Orientation Straight 11/30/2023 3: 02 PM CDT Last Filed Vital Signs Vital Sign Reading [...] Mass Index 30.11 12/01/2023 7:28 AM CDT Plan of Treatment Health Maintenance Due Date Last Done Comments CT Colonography 1966 Cologuard 1966 Colonoscopy 1966 Colorectal Cancer Screening 1966 FIT 1966 Fasting Glucose for Diabetes Screening 1966 HIV Screening 1966 Hepatitis C Screening 1966 Lipid (Cholesterol) Screening 1966 Hepatitis B Vaccines (1 of 3 - 19+ 3-dose series) 1985 Zoster Vaccines (1 of 2) 2016 COVID-19 Vaccine (4 - season) 2023 08/12/2021, 12/27/2020, 12/06/2020 Depression Screening (Annual PHQ-2) 08/25/2023 Influenza Vaccine (#1) 2024 6, 05/27/2014, 05/20/2013, Additional history exists DTaP,Tdap,and Td Vaccines (2 - Td or Tdap) 06/22/2028 06/22/2018, 07/27/2007 Pneumococcal vaccine (0-64 years) Aged Out No longer eligible based on patient's age to complete this topic Procedures Procedure Name Priority Date/Time Associated Diagnosis Comments ELECTROPHORESIS, PROTEIN, RANDOM, U Routine 12/01/2023 7:14 AM CDT 2,3-DINOR 11B-PROSTAGLANDIN F2A, U Routine 12/01/2023 7:14 AM CDT Angioedema Personal History Urticaria Idiopathic LEUKOTRIENE E4, RANDOM, U Routine 12/01/2023 7:14 AM CDT Angioedema Personal History U[place]icaria Idiopathic N-METHYLHISTAMINE, RANDOM, U Routine 12/01/2023 7:14 AM CDT Angioedema Personal History U[place]icaria Idiopathic IMMUNOGLOBULIN M (IGM), S Routine 12/01/2023 6:53 AM CDT Angioedema Personal History Urticaria Idiopathic IMMUNOGLOBULIN E (IGE), S Routine 12/01/2023 6:53 AM CDT Angioedema Personal History U[place]icaria Idiopathic CONNECTIVE TISSUE DISEASE CASCADE, DAVID, S Routine 12/01/2023 6:53 AM CDT Angioedema Personal History Urticaria Idiopathic CU INDEX - SENT OUT LAB Routine 12/01/19 6:52 AM CDT Angioedema Personal History Urticaria [...] AM CDT Angioedema Personal History Urticaria Idiopathic from Last 3 Months Results * (ABNORMAL) Leukotriene E4, Random, Urine (12/01/2023 7:14 AM CDT) Creatinine, Random, U 80 16 - 326 mg/dL 12/01/2023 8:43 AM CDT DTL Leukotriene E4, Random, U 114(H) <=104 pg/mg Cr 12/05/2023 4:38 PM CDT [facility] Comment: ----ADDITIONAL INFORMATION---- This test was developed and its performance characteristics determined by [facility] in a manner consistent with CLIA requirements. This test has not been cleared or approved by the U.S. Food and Drug Administration. Urine (Urine, Voided) 12/01/2023 7:14 AM CDT 12/01/2023 10:21 AM CDT Arturo Espitia, Ph.D. LAB URIN E ORDERABLES Performing Organization Address [facility]/ZIP Co de Phone Number [facility] [address] [place] [address] [facility] [address] [place] [address] [facility] [address] [place] [address] [place] [address] * N-Methylhistamine, Random, Urine (12/01/2023 7:14 AM CDT) Creatinine, Random, U 80 16 - 326 mg/dL 12/01/2023 8:43 AM CDT DTL N-Methylhistami ne, Random, U 119 30 - 200 mcg/g Cr 12/02/2023 4:08 PM CDT [facility] Urine (Urine, Voided) 12/01/2023 7:14 AM CDT 12/01/2023 7:14 AM CDT Arturo Espitia, Ph.D. LAB URIN E ORDERABLES Performing Organization Address [facility]/ZIP Co de Phone Number [facility] [address] [place] [address] [facility] [address] [place] [address] [facility] [address] [place] [address] [place] [address] * Electrophoresis, Protein, Random, Urine (12/01/2023 7:14 [...] LAB URIN E ORDERABLES Performing Organization Address City/State/[facility] Co de Phone Number [facility] [address] [place] [address] [facility] [place] [address] [place] [address] [facility] [address] [place] [address] [place] [address] * 2,0-Cbkok-98Gabz-Prostaglandin F2 Alpha, Random, Urine (12/01/2023 7:14 AM CDT) Creatinine, Random, U 80 16 - 326 mg/dL 12/01/2023 8:43 AM CDT DTL 2,3-dinor 11B-Prostagland in F2a, U 548 <1802 pg/mg Cr 12/04/2023 9:19 AM CDT [facility] Urine (Urine, Voided) 12/01/2023 7:14 AM CDT 12/01/2023 7:14 AM CDT Arturo Espitia, Ph.D. LAB URIN E ORDERABLES Performing Organization Address City/[facility] Co de Phone Number [facility] [address] [place] [address] DTL [facility] [address] [place] [address] [facility] [address] [place] [address] [place] [address] * Connective Tissue Diseases [place] (12/01/2023 6:53 AM CDT) Antinuclear Ab, S 0.2 <=1.0 (Negative ) U 12/01/2023 6:31 PM CDT [facility] Comment: ----ADDITIONAL INFORMATION---- Method: Enzyme-linked immunoassay using HEp-2 nuclear extract supplemented with purified antigens. Cyclic Citrullinated Peptide Ab, S <15.6 <20.0 (Negative ) U 12/01/2023 6:54 PM CDT [facility] Interpretation SEE COMMENT 6:54 PM CDT [facility] Comment: Tests for antibodies to dsDNA and SHANIA antigens are not performed automatically unless the CONOR result is > or = 3.0 U. ??Studies performed at [facility] indicate that positive CONOR results <3.0 U are rarely accompanied by positive second order tests. Blood (Blood, Venous) 12/01/2023 6:53 AM CDT 12/01/2023 10:21 AM CDT Arturo Espitia, Ph.D. LAB BLOO D ADD-ON Performing Organization Address City/[facility]/ZIP Co de Phone Number [facility] [address] [place] [address] [facility] [address] [place] [place] [address] * Immunoglobulin E (IgE) (12/01/2023 6:53 AM CDT) Immunoglobulin E (IgE), S 15.3 <=214 kU/L 12/01/2023 8:05 PM CDT [facility] Blood (Blood, Venous) 12/01/2023 6:53 AM CDT 12/01/2023 5:12 PM CDT Arturo Espitia, Ph.D. LAB BLOO D ADD-ON Performing Organization Address City/[facility]/ZIP Co de Phone Number [facility] [address] [place] [address] [facility] [address] [place] [address] * Immunoglobulin M (IgM) (12/01/2023 6:53 AM CDT) Pathologist [facility] Immunoglobulin M (IgM), S 59 37 - 286 mg/dL 12/01/2023 2:01 PM CDT [facility] Blood (Blood, Venous) 12/01/2023 6:53 AM CDT 12/01/2023 10:19 AM CDT Arturo BarrosoBKumar, Ph.D. LAB BLOO D ADD-ON Performing Organization Address City/[facility] Co de Phone Number [facility] [address] [place] [address] [facility] [address] [place] [address] * Thyroid Function [place] (12/01/2023 6:52 AM CDT) Pathologist [facility] TSH, Sensitive 2.5 0.3 - 4.2 mIU/L 12/01/2023 8:09 AM CDT DT Blood (Blood, Venous) 12/01/2023 6:52 AM CDT 12/01/2023 7:38 AM CDT Arturo BarrosoBTonjaSTonja, Ph.D. LAB BLOO D ADD-ON Performing Organization Address City/[facility]/ZIP Co de Phone Number [facility] [address] [place] [address], [facility] [address] [place] [address] * (ABNORMAL) CU Index - Sent Out Lab (12/01/2023 6:52 AM CDT) CU Index 40.3(H) <10 12/05/2023 9:36 AM CDT [facility] Comment: The CU Index(R) test is the second generation Functional Anti-FceR test. ??Patients with a CU Index(R) greater than or equal to 10 have basophil reactive factors in their serum which supports an autoimmune basis for disease. *This test was developed and its performance characteristics determined by [employer]. It has not been cleared or approved by the U.S. Food and Drug Administration. FLAG Interpretation: A = Abnormal, H = High, L = Low Blood (Blood, Venous) 12/01/2023 6:52 AM CDT 12/01/2023 9:55 AM CDT Arturo BarrosoBKumar, Ph.D. LAB BLOO D NON ADD-ON Performing Organization Address City/[facility] Co de Phone Number [employer] INTERFACE [address] [place] [address], [facility] [employer] [address] [place] [address] * Thyroperoxidase (TPO) Antibodies (12/01/2023 6:52 AM CDT) Thyroperoxidase Ab, S 15.4 <34.0 IU/mL 12/01/2023 8:09 AM CDT DTL Blood (Blood, Venous) 12/01/2023 6:52 AM CDT 12/01/2023 7:38 AM CDT Arturo BarrosoBTonjaS., Ph.D. LAB BLOO D ADD-ON Performing Organization Address City/[facility]/ZIP Co de Phone Number [facility] [address] [place] [address], [place] DTL [facility] [address] [place] [address] * Sedimentation Rate (12/01/2023 6:52 AM CDT) Sedimentation Rate, B 2 2 - 20 mm/h 12/01/2023 8:12 AM CDT DTL Blood (Blood, Venous) 12/01/2023 6:52 AM CDT 12/01/2023 7:13 AM CDT Arturo BarrosoB.S., Ph.D. LAB BLOO D ADD-ON Performing Organization Address City/[facility] Co de Phone Number [facility] [address] [place], [place] [phone] [place] [address] [address] [place] [address] * CRP (C-Reactive Protein) (12/01/2023 6:52 AM CDT) C-Reactive Protein (CRP), S 3.9 <5.0 mg/L 12/01/2023 8:09 AM CDT DT Blood (Blood, Venous) 12/01/2023 6:52 AM CDT 12/01/2023 7:38 AM CDT Arturo BarrosoB.S., Ph.D. LAB BLOO D ADD-ON Performing Organization Address [facility] Co de Phone Number [facility] [address] [place] [address], [facility] [address] [place] [address] * ALT (Alanine Aminotransferase) (12/01/2023 6:52 AM CDT) Alanine Aminotransferase (ALT), S 45 7 - 55 U/L 12/01/2023 8:09 AM CDT DTL Blood (Blood, Venous) 12/01/2023 6:52 AM CDT 12/01/2023 7:38 AM CDT Arturo BarrosoB.S., Ph.D. LAB BLOO D ADD-ON [facility] [address] [place] [address] * AST (Aspartate Aminotransferase) (12/01/2023 6:52 AM CDT) Aspartate Aminotransferase (AST), S 26 8 - 48 U/L 12/01/2023 8:09 AM CDT DTL Blood (Blood, Venous) 12/01/2023 6:52 AM CDT 12/01/2023 7:38 AM CDT Arturo Espitia, Ph.D. LAB BLOO D ADD-ON Performing Organization Address City/[facility]/ZIP Co de Phone Number [facility] [address] [place] [address] * LD (Lactate Dehydrogenase) (12/01/2023 6:52 AM CDT) Lactate Dehydrogenase (LD), S 148 122 - 222 U/L 12/01/2023 8:09 AM CDT DTL Blood (Blood, Venous) 12/01/2023 6:52 AM CDT 12/01/2023 7:38 AM CDT Arturo Espitia, Ph.D. [place] [address] * Creatinine with Estimated GFR (12/01/2023 6:52 AM CDT) Creatinine 1.08 0.74 - 1.35 mg/dL 12/01/2023 8:09 AM CDT DTL Estimated GFR (eGFR) 80 >=60 mL/min/BSA 12/01/2023 8:09 AM CDT DTL Comment: Estimated GFR calculated using the 2020 CKD_EPI creatinine equation. Blood (Blood, Venous) 12/01/2023 6:52 AM CDT 12/01/2023 7:38 AM CDT Arturo Espitia, Ph.D. LAB BLOO D ADD-ON [facility] [address] [place] [address], [place] DTL [facility] [address] [place] [address] from Last 3 Months
--- OUTSIDE RECORDS SUMMARY | 2024-03-01 08:33 | XMS_ITS | Referral Summary ---
Author Organization [facility] Address [address] [place] [address] Care Team Providers Care Cryptologic Technician Operator/Analyst Name Role Phone Unavailable Primary Care Provider Unavailabl e Source Comments Patient records contain information from all sites at [facility]. For routine questions regarding patient records, call [phone] during business hours, M-F 8:00 AM - 5:00 PM Central Time. Record requests for emergency care only can be directed to [phone] at any time.[facility] Encounters Date Type Department Care Team Description 12/01/2023 6:35 AM CDT - 12/01/2023 11:59 PM CDT Hospital Encounter Department of Laboratory Medicine and Pathology, [facility] [place], [place] [address] [place] [phone] Arturo Velásquez, M.B.B.S., Ph.D. Angioedema Personal History; Urticaria Idiopathic Discharge Disposition: Home or Self Care 12/01/2023 6:34 AM CDT Hospital Encounter Department of Laboratory Medicine and Pathology, [facility] [place], [place] [address] [place] [address] Arturo Velásquez, M.B.B.S., Ph.D. Angioedema Personal History; Urticaria Idiopathic Discharge Disposition: Home or Self Care 12/01/2023 8:30 AM CDT Comprehensive Visit Division of Allergic Diseases in [place], [place] [address] [place] [address] Arturo Velásquez, M.B.B.S., Ph.D. Other Urticaria from Last 3 Months Allergies Active Allergy Reactions Criticality Noted Date [...] zafirlukast (ACCOLATE) 20 mg tablet 12/28/2022 Active Social History Tobacco Use Types Packs/Day Years Used Date Smoking Tobacco: Never Assessed [facility] Utilities Answer Date Recorded In the past 12 months has e [employer], gas, oil, or water [employer] threatened to shut off services in your [...] your living situation today? I have a [facility] place to live 11/30/2023 Sex and [...] 12/01/2023 7:28 AM CDT Plan of Treatment Not on file Procedures Procedure Name Priority Date/Time Associated Diagnosis [...] <=104 pg/mg Cr 12/05/2023 4:38 PM CDT [facility] Comment: ----ADDITIONAL INFORMATION---- This test was developed and its performance characteristics determined by [facility] in a manner consistent with CLIA requirements. This test has not been cleared or approved by the U.S. Food and Drug Administration. Urine (Urine, Voided) 12/01/2023 7:14 AM CDT 12/01/2023 10:21 AM CDT Arturo BarrosoBTonjaSTonja, Ph.D. LAB URIN E ORDERABLES [facility] [address] [place] [address] [facility] [address] [place] [address] [facility] [address] [place] [address] [place] [address] * N-Methylhistamine, Random, Urine (12/01/2023 7:14 AM CDT) Creatinine, Random, U 80 16 - 326 mg/dL 12/01/2023 8:43 AM CDT DTL N-Methylhistami ne, Random, U 119 30 - 200 mcg/g Cr 12/02/2023 4:08 PM CDT [facility] Urine (Urine, Voided) 12/01/2023 7:14 AM CDT 12/01/2023 7:14 AM CDT Arturo Espitia, Ph.D. LAB URIN E ORDERABLES [facility] [address] [place] [address] [facility] [address] [place] [address] [facility] [address] [place] [address] [place] [address] * Electrophoresis, Protein, Random, Urine (12/01/2023 7:14 [...] LAB URIN E ORDERABLES Performing Organization Address City/[facility] Co de Phone Number [facility] [address] [place] [address] [facility] [address] [place] [address] [facility] [address] [place] [address] [place] [address] * 2,5-Tpboy-[id number]-Prostaglandin F2 Alpha, Random, Urine (12/01/2023 7:14 AM CDT) Creatinine, Random, U 80 16 - 326 mg/dL 12/01/2023 8:43 AM CDT DTL 2,3-dinor 11B-Prostagland in F2a, U 548 <1802 pg/mg Cr 12/04/2023 9:19 AM CDT [facility] Urine (Urine, Voided) 12/01/2023 7:14 AM CDT 12/01/2023 7:14 AM CDT Arturo Espitia, Ph.D. LAB URIN E ORDERABLES Performing Organization Address City/[facility] Co de Phone Number [facility] [address] [place] [address] [facility] [address] [place] [address] [facility] [address] [place] [address] [place] [address] * Connective Tissue Diseases [place] (12/01/2023 6:53 AM CDT) Antinuclear Ab, S 0.2 <=1.0 (Negative ) U 12/01/2023 6:31 PM CDT [facility] Comment: ----ADDITIONAL INFORMATION---- Method: Enzyme-linked immunoassay using HEp-2 nuclear extract supplemented with purified antigens. Cyclic Citrullinated Peptide Ab, S <15.6 <20.0 (Negative ) U 12/01/2023 6:54 PM CDT [facility] Interpretation SEE COMMENT 6:54 PM CDT [facility] Comment: Tests for antibodies to dsDNA and SHANIA antigens are not performed automatically unless the CONOR result is > or = 3.0 U. ??Studies performed at [facility] indicate that positive CONOR results <3.0 U are rarely accompanied by positive second order tests. Blood (Blood, Venous) 12/01/2023 6:53 AM CDT 12/01/2023 10:21 AM CDT Arturo Espitia, Ph.D. LAB BLOO D ADD-ON Performing Organization Address [facility] Co de Phone Number [facility] [address] [place], [place] [phone] [place] [address] [place] [address] * Immunoglobulin E (IgE) (12/01/2023 6:53 AM CDT) Immunoglobulin E (IgE), S 15.3 <=214 kU/L 12/01/2023 8:05 PM CDT [facility] Blood (Blood, Venous) 12/01/2023 6:53 AM CDT 12/01/2023 5:12 PM CDT Arturo BarrosoBTonjaSTonja, Ph.D. LAB BLOO D ADD-ON Performing Organization Address [facility] Co de Phone Number [facility] [address] [place] [address] [facility] [address] [place] [address] * Immunoglobulin M (IgM) (12/01/2023 6:53 AM CDT) Immunoglobulin M (IgM), S 59 37 - 286 mg/dL 12/01/2023 2:01 PM CDT [facility] Blood (Blood, Venous) 12/01/2023 6:53 AM CDT 12/01/2023 10:19 AM CDT Arturo BarrosoBKumar, Ph.D. LAB BLOO D ADD-ON Performing Organization Address City/[facility] Co de Phone Number [facility] [address] [place] [address] [facility] [address] [place] [address] * Thyroid Function [place] (12/01/2023 6:52 AM CDT) TSH, Sensitive 2.5 0.3 - 4.2 mIU/L 12/01/2023 8:09 AM CDT DTL Blood (Blood, Venous) 12/01/2023 6:52 AM CDT 12/01/2023 7:38 AM CDT Arturo Espitia, Ph.D. LAB BLOO D ADD-ON Performing Organization Address [facility] Co de Phone Number [facility] [address] [facility] [address] [place] [address] * (ABNORMAL) CU Index - Sent Out Lab (12/01/2023 6:52 AM CDT) Pathologist [facility] CU Index 40.3(H) <10 12/05/2023 9:36 AM CDT [facility] Comment: The CU Index(R) test is the second generation Functional Anti-FceR test. ??Patients with a CU Index(R) greater than or equal to 10 have basophil reactive factors in their serum which supports an autoimmune basis for disease. *This test was developed and its performance characteristics determined by [facility]. It has not been cleared or approved by the U.S. Food and Drug Administration. FLAG Interpretation: A = Abnormal, H = High, L = Low Blood (Blood, Venous) 12/01/2023 6:52 AM CDT 12/01/2023 9:55 AM CDT Arturo Espitia, Ph.D. LAB BLOO D NON ADD-ON Performing Organization Address City/[facility]/ZIP Co de Phone Number [employer] [facility] [address], [address] [place] [address], [facility] [employer] [facility] [address], [facility] [address] [place] [address] * Thyroperoxidase (TPO) Antibodies (12/01/2023 6:52 AM CDT) Thyroperoxidase Ab, S 15.4 <34.0 IU/mL 12/01/2023 8:09 AM CDT DTL Blood (Blood, Venous) 12/01/2023 6:52 AM CDT 12/01/2023 7:38 AM CDT Arturo BarrosoB.S., Ph.D. LAB BLOO D ADD-ON Performing Organization Address City/[facility] Co de Phone Number [facility] [address] [facility] 200 [place] [address] * Sedimentation Rate (12/01/2023 6:52 AM CDT) Pathologist [facility] Sedimentation Rate, B 2 2 - 20 mm/h 12/01/2023 8:12 AM CDT DTL Blood (Blood, Venous) 12/01/2023 6:52 AM CDT 12/01/2023 7:13 AM CDT Arturo UreñaBTonjaB.S., Ph.D. LAB BLOO D ADD-ON Performing Organization Address City/[facility] Co de Phone Number [facility] [address] [place] [address] * CRP (C-Reactive Protein) (12/01/2023 6:52 AM CDT) C-Reactive Protein (CRP), S 3.9 <5.0 mg/L 12/01/2023 8:09 AM CDT DTL Blood (Blood, Venous) 12/01/2023 6:52 AM CDT 12/01/2023 7:38 AM CDT Arturo Espitia, Ph.D. LAB BLOO D ADD-ON [facility] [address] 200 [place] [address] * ALT (Alanine Aminotransferase) (12/01/2023 6:52 AM CDT) Alanine Aminotransferase (ALT), S 45 7 - 55 U/L 12/01/2023 8:09 AM CDT DTL Blood (Blood, Venous) 12/01/2023 6:52 AM CDT 12/01/2023 7:38 AM CDT Arturo Espitia, Ph.D. LAB BLOO D ADD-ON Performing Organization Address City/[facility]/ZIP Co de Phone Number [facility] [address] [place] [address] * AST (Aspartate Aminotransferase) (12/01/2023 6:52 AM CDT) Aspartate Aminotransferase (AST), S 26 8 - 48 U/L 12/01/2023 8:09 AM CDT DTL Blood (Blood, Venous) 12/01/2023 6:52 AM CDT 12/01/2023 7:38 AM CDT Arturo BarrosoBKumar, Ph.D. LAB BLOO D ADD-ON [facility] [address] 200 [place] [id number] * LD (Lactate Dehydrogenase) (12/01/2023 6:52 AM CDT) Lactate Dehydrogenase (LD), S 148 122 - 222 U/L 12/01/2023 8:09 AM CDT DTL Blood (Blood, Venous) 12/01/2023 6:52 AM CDT 12/01/2023 7:38 AM CDT Arturo BarrosoBEsther., Ph.D. LAB BLOO D NON ADD-ON [facility] 200 [place] [address], [facility] [address] [place] [address] * Creatinine with Estimated GFR (12/01/2023 6:52 AM CDT) Creatinine 1.08 0.74 - 1.35 mg/dL 12/01/2023 8:09 AM CDT DTL Estimated GFR (eGFR) 80 >=60 mL/min/BSA 12/01/2023 8:09 AM CDT DTL Comment: Estimated GFR calculated using the 2020 CKD_EPI creatinine equation. Blood (Blood, Venous) 12/01/2023 6:52 AM CDT 12/01/2023 7:38 AM CDT Arturo BarrosoBEsther., Ph.D. LAB BLOO D ADD-ON [facility] [address] [place] [address], [facility] [place] [place] [address] from Last 3 Months
--- OUTSIDE RECORDS SUMMARY | 2024-03-01 08:33 | XMS_ITS ---
Author Organization [facility] [place] [facility] Address [address] [place] [address] Care Team Providers Care Web Applications Architect Name Role Phone Unavailable Unavailable Unavailable Surgery Details Not on file Complications Check Surgery Details section. Procedure Estimated Blood Loss Check Surgery Details section. Procedure Findings Check Surgery Details section. Procedure Specimens Taken Check Surgery Details section.
--- OUTSIDE RECORDS SUMMARY | 2024-03-01 08:33 | XMS_ITS | Encounter Summary ---
Author Organization [facility] Address [address] [place] [address] Care Team Providers Care Rn House Supervisor Name Role Phone Unavailable Primary Care Provider Unavailabl e Encounter Details Date Type Department Care Team (Late st Contact Info) Description 11/24/2023 Clinical Communication Division of Allergic Diseases in [place], [place] [address] [place] [address] Arturo Velásquez, M.B.B.S., Ph.D. [address] [place] [address] Social History Tobacco Use Types Packs/Day Years Used Date Smoking Tobacco: Never Assessed Nutrition Answer Date Recorded Nutrition: EVOO Fat Source Unknown 10/30 Nutrition: Servings of Fruits/Vegetables per Day Not on file 10/30/2020 Dental Answer Date Recorded Dental: Regular Dentist Unknown 11/03/19 21 Sex and Gender Information Value Date Recorded Sex Assigned at Male 11/30/2023 3:02 PM CDT Gender Identity Male 11/30/2023 3:02 PM CDT Sexual Orientation Straight 11/30/2023 3: 02 PM CDT documented as of this encounter Miscellaneous Notes * Telephone Encounter - Arturo Velásquez, M.B.B.S., Ph.D. - 11/24/2023 10:37 AM CDT Orders placed thank you documented in this encounter Plan of Treatment Not on file documented as of this encounter Results * 2,4-Hbemh-[id number]-Prostaglandin F2 Alpha, Random, Urine (12/01/2023 7:14 AM CDT) Creatinine, Random, U 80 16 - 326 mg/dL 12/01/2023 8:43 AM CDT DTL 2,3-dinor 11B-Prostagland in F2a, U 548 <1802 pg/mg Cr 12/04/2023 9:19 AM CDT [facility] Urine (Urine, Voided) 12/01/2023 7:14 AM CDT 12/01/2023 7:14 AM CDT Arturo Espitia, Ph.D. LAB URIN E ORDERABLES Performing Organization Address [facility] Co de Phone Number [facility] [address] [place], [place] [phone] [place] [address] [facility] [address] [place] [address] [place] [address] * (ABNORMAL) Leukotriene E4, Random, Urine (12/01/2023 7:14 AM CDT) Creatinine, Random, U 80 16 - 326 mg/dL 12/01/2023 8:43 AM CDT DTL Leukotriene E4, Random, U 114(H) <=104 pg/mg Cr 12/05/2023 4:38 PM CDT [facility] Comment: ----ADDITIONAL INFORMATION---- This test was developed and its performance characteristics determined by [facility] in a manner consistent with CLIA requirements. This test has not been cleared or approved by the U.S. Food and Drug Administration. Urine (Urine, Voided) 12/01/2023 7:14 AM CDT 12/01/2023 10:21 AM CDT Arturo Espitia, Ph.D. LAB URIN E ORDERABLES Performing Organization Address City/[facility]/ZIP Co de Phone Number [facility] [address] [place] [address] [facility] [address] [place] [address] [facility] [address] [place] [place] [address] * N-Methylhistamine, Random, Urine (12/01/2023 7:14 AM CDT) Creatinine, Random, U 80 16 - 326 mg/dL 12/01/2023 8:43 AM CDT DTL N-Methylhistami ne, Random, U 119 30 - 200 mcg/g Cr 12/02/2023 4:08 PM CDT [facility] Urine (Urine, Voided) 12/01/2023 7:14 AM CDT 12/01/2023 7:14 AM CDT Arturo BarrosoB.STonja, Ph.D. LAB URIN E ORDERABLES Performing Organization Address City/[facility]/ZIP Co de Phone Number [facility] [address] [place] [address] [facility] [address] [place] [address] [facility] [address] [place] [place] [address] * Immunoglobulin M (IgM) (12/01/2023 6:53 AM CDT) Immunoglobulin M (IgM), S 59 37 - 286 mg/dL 12/01/2023 2:01 PM CDT [facility] Blood (Blood, Venous) 12/01/2023 6:53 AM CDT 12/01/2023 10:19 AM CDT Arturo BarrosoB.S., Ph.D. LAB BLOO D ADD-ON [facility] [address] [place] [address] [facility] [address] [place] [address] * Immunoglobulin E (IgE) (12/01/2023 6:53 AM CDT) Pathologist [facility] Immunoglobulin E (IgE), S 15.3 <=214 kU/L 12/01/2023 8:05 PM CDT [facility] Blood (Blood, Venous) 12/01/2023 6:53 AM CDT 12/01/2023 5:12 PM CDT Arturo Espitia, Ph.D. LAB BLOO D ADD-ON Performing Organization Address City/[facility]/ZIP Co de Phone Number [facility] [address] [place] [address] [facility] [address] [place] [address] * Connective Tissue Diseases [place] (12/01/2023 6:53 AM CDT) [facility] Antinuclear Ab, S 0.2 <=1.0 (Negative ) U 12/01/2023 6:31 PM CDT [facility] Comment: ----ADDITIONAL INFORMATION---- Method: Enzyme-linked immunoassay using HEp-2 nuclear extract supplemented with purified antigens. Cyclic Citrullinated Peptide Ab, S <15.6 <20.0 (Negative ) U 12/01/2023 6:54 PM CDT [facility] Interpretation SEE COMMENT 6:54 PM CDT [facility] Comment: Tests for antibodies to dsDNA and SHANIA antigens are not performed automatically unless the CONOR result is > or = 3.0 U. ??Studies performed at [facility] indicate that positive CONOR results <3.0 U are rarely accompanied by positive second order tests. Blood (Blood, Venous) 12/01/2023 6:53 AM CDT 12/01/2023 10:21 AM CDT Arturo Espitia, Ph.D. LAB BLOO D ADD-ON Performing Organization Address City/[facility]/ZIP Co de Phone Number [facility] [address] [place] [address] [facility] [address] [place] [address] * (ABNORMAL) CU Index - Sent Out [...] developed and its performance characteristics determined by [facility]. It has not been cleared or approved by the U.S. Food and Drug Administration. FLAG Interpretation: A = Abnormal, H = High, L = Low Blood (Blood, Venous) 12/01/2023 6:52 AM CDT 12/01/2023 9:55 AM CDT Arturo BarrosoBTonjaS., Ph.D. LAB BLOO D NON ADD-ON Performing Organization Address City/[facility]/ZIP Co de Phone Number [employer], INTERFACE [address] [place] [address] [facility] [employer] [address] [place] [address] * LD (Lactate Dehydrogenase) (12/01/2023 6:52 AM CDT) Lactate Dehydrogenase (LD), S 148 122 - 222 U/L 12/01/2023 8:09 AM CDT DTL Blood (Blood, Venous) 12/01/2023 6:52 AM CDT 12/01/2023 7:38 AM CDT Arturo BarrosoB.S., Ph.D. LAB BLOO D NON ADD-ON [facility] [address] [place] [address], [place] DTL [facility] [address] [place] [address] * AST (Aspartate Aminotransferase) (12/01/2023 6:52 AM CDT) Aspartate Aminotransferase (AST), S 26 8 - 48 U/L 12/01/2023 8:09 AM CDT DT Blood (Blood, Venous) 12/01/2023 6:52 AM CDT 12/01/2023 7:38 AM CDT Arturo BarrosoBTonjaSTonja, Ph.D. LAB BLOO D ADD-ON Performing Organization Address City/[facility] Co de Phone Number [facility] [address] [place] [address] * ALT (Alanine Aminotransferase) (12/01/2023 6:52 AM CDT) Alanine Aminotransferase (ALT), S 45 7 - 55 U/L 12/01/2023 8:09 AM CDT DT Blood (Blood, Venous) 12/01/2023 6:52 AM CDT 12/01/2023 7:38 AM CDT Arturo BarrosoBTonjaSTonja, Ph.D. LAB BLOO D ADD-ON Performing Organization Address City/[facility]/ZIP Co de Phone Number [facility] [address] [place], [place] [phone] [place] [address] * Creatinine with Estimated GFR (12/01/2023 6:52 AM CDT) Creatinine 1.08 0.74 - 1.35 mg/dL 12/01/2023 8:09 AM CDT DT Estimated GFR (eGFR) 80 >=60 mL/min/BSA 12/01/2023 8:09 AM CDT DT Comment: Estimated GFR calculated using the 2020 CKD_EPI creatinine equation. Blood (Blood, Venous) 12/01/2023 6:52 AM CDT 12/01/2023 7:38 AM CDT Arturo Espitia, Ph.D. LAB BLOO D ADD-ON [facility] [address] [place] [address], [facility] [address] [place] [address] * Sedimentation Rate (12/01/2023 6:52 AM CDT) Sedimentation Rate, B 2 2 - 20 mm/h 12/01/2023 8:12 AM CDT DTL Blood (Blood, Venous) 12/01/2023 6:52 AM CDT 12/01/2023 7:13 AM CDT Arturo Espitia, Ph.D. LAB BLOO D ADD-ON [facility] [address] [place] [address], [facility] 200 [place] [address] * CRP (C-Reactive Protein) (12/01/2023 6:52 AM CDT) C-Reactive Protein (CRP), S 3.9 <5.0 mg/L 12/01/2023 8:09 AM CDT DTL Blood (Blood, Venous) 12/01/2023 6:52 AM CDT 12/01/2023 7:38 AM CDT Arturo Espitia, Ph.D. LAB BLOO D ADD-ON [facility] [address] [place] [address], [facility] [address] [place] [address] * Thyroid Function [place] (12/01/2023 6:52 AM CDT) TSH, Sensitive 2.5 0.3 - 4.2 mIU/L 12/01/2023 8:09 AM CDT DTL Blood (Blood, Venous) 12/01/2023 6:52 AM CDT 12/01/2023 7:38 AM CDT Arturo BarrosoBTonjaSTonja, Ph.D. LAB BLOO D ADD-ON Performing Organization Address City/[facility]/ZIP Co de Phone Number [facility] [address] [place] [address], [facility] 200 [place] [address] * Thyroperoxidase (TPO) Antibodies (12/01/2023 6:52 AM CDT) Thyroperoxidase Ab, S 15.4 <34.0 IU/mL 12/01/2023 8:09 AM CDT DTL Blood (Blood, Venous) 12/01/2023 6:52 AM CDT 12/01/2023 7:38 AM CDT Arturo BarrosoBTonjaS., Ph.D. LAB BLOO D ADD-ON Performing Organization Address City/[facility]/ZIP Co de Phone Number [facility] [address] [place] [address], [facility] 200 [place] [address] documented in this encounter Visit Diagnoses Diagnosis Angioedema Personal History- Primary Urticaria Idiopathic documented in this encounter
--- OUTSIDE RECORDS SUMMARY | 2024-03-01 08:34 | XMS_ITS | Encounter Summary ---
Author Organization [facility] Address [address] [place] [address] Care Team Providers Care Mathematical Technician Name Role Phone Unavailable Primary Care Provider Unavailabl e Reason for Referral * Outpatient (Routine) - Closed Specialty Diagnoses / Procedures Referred By Contdoyle t Referred To Contact Allergy and Immunology Diagnoses Other Urticaria Lilian Paulson, F.N.P. [address] [place] [address] [facility] Referral ID Status Reason Start Date Expiration Date Visits Re quested Visits Authorized [id number] Closed 11/14/2023 05/15/2025 1 1 Encounter Details Date Type Department Care Team (Late st Contact Info) Description 11/14/2023 [facility] [address] [place] [address] Lilian Paulson, F.N.P. [address] [place] [phone] Other Urticaria (Primary Dx) Social History Tobacco Use Types Packs/Day Years [...] PM CDT documented as of this encounter Plan of Treatment Scheduled Referrals Name Type Priority Associated Diagnoses Orde r Schedule Allergy Referral Outpatient Referral Routine Other Urticaria Expected: 11/14/2023 (Approximate), Expires: 02/13/2025 documented as of this encounter Visit Diagnoses Diagnosis Other Urticaria- Primary documented in this encounter
--- OUTSIDE RECORDS SUMMARY | 2024-03-01 08:34 | XMS_ITS | Patient Health Record ---
Author Organization [facility] [place] [facility] Address [address] [id number] Care Team Providers Care Cold Storage Worker Name Role Phone Ashlyn Sauceda Primary Care Provider [phone] Yuki Lindsay [phone] Allergies Allergen (clinical drug ingredient) Drug/Non Drug Allergy documented on EMR Reaction Allergy Type Onset Date Status Bee Sting anaphylaxis Allergy Active Results Component Value Reference Range Notes URINALYSIS DIP (83425) Reviewed date:12/12/2023 12:30:08 PM Interpretation:negative Performing Lab: Notes/Report: Vision Colour Blindness Reviewed date:12/12/2023 10:43:57 AM Interpretation:Passed Performing Lab: Notes/Report: Passed VISION AGUIRRE Reviewed date:12/12/2023 10:44:33 AM Interpretation:R- 20/25 L- 20/20 Performing Lab: Notes/Report: R- 20/25 L- 20/20 GLYCOSYLATED HGB A1C Reviewed date:12/12/2023 12:30:08 PM Interpretation:7.9 Performing Lab: Notes/Report: Reason For Referral No Information Medications Medication SIG (Take, Route, Frequency, Duration) Notes Start Date End Date Status traMADol HCl 50 MG 1 TABLET NEEDED ORALLY ONCE A DAY 7 DAY(S) for 7 dx M50.21 09/05/2021 Active Tylenol 8 Hour Arthritis Pain 650 MG 2 tablets as needed Orally every 8 hrs Active amLODIPine Besylate 10 MG TAKE 1 TABLET BY MOUTH EVERY DAY for 90 days Active Advil 200 MG 2 tab(s) orally ever y 6 hours Not-Taking Diabetic Glucometer Accuchek once fasting in the morning 01/02/2022 Active Simvastatin 20 MG 1 tablet in the evening Orally Once a day for 90 days Active Sertraline HCl 50 MG 1 tablet Orally Once a day for 30 days Pt to call clinic to schedule appointment before the next refill., Needs appointment within 30 days. Active Tadalafil 10 MG TAKE 1-2 TABLETS BY MOUTH NEEDED for 15 Active Diabetic Lancets - fastclix once daily 01/02/2022 Active Diabetic Test Strips - accuchek once daily 01/02/2022 Active EPINEPHrine 0.3 MG/0.3ML 0.3 MG NEEDED FOR MAJOR ALLERGIC REACTION INTRAMUSCULARLY for 1 Active metFORMIN HCl ER 500 MG TAKE 1 TABLET BY MOUTH EVERY DAY for 90 days Active Immunizations Vaccine Route Administration Date Status Comme nts Influenza (Flulaval) 3 years and up WITH preservative IM Intramuscular 05/29/2016 Administered Tdap (Boostrix 7 years & older ) IM Intramuscular 06/22/2018 Administered Social History Tobacco Use: Social History Observation Description Date Details (start date - stop date) Never Smoker NA - NA Tobacco Status Question Answer Notes I am: never smoker Problems Problem Type SNOMED Code ICD Code Onset Dates Problem Status W/U Status Risk Notes Problem 38135341 Generalized anxiety disorder (F41.1) Active confirmed Problem 823772968 Diverticulitis (K57.92) Active confirmed Problem 809634368 Cervical disc herniation (M50.20) Active confirmed Problem 706612608 Mixed hyperlipidemia (E78.2) Active confirmed Problem 06491376 Essential hypertension (I10) Active confirmed Problem 0984527494798 Obstructive slee p apnea, adult (G47.33) Active confirmed Problem 085536346 Erectile dysfunction, unspecified erectile dysfunction type (N52.9) Active confirmed Problem 051766375 Cervical spondylolysis (M43.02) Active confirmed Problem 949835159 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) Active confirmed Problem 16085002 Type 2 diabetes mellitus with hyperglycemia, without long-term current use of insulin (E11.65) Active confirmed Problem 45871267 Current mild episode of major depressive disorder without prior episode (F32.0) Active confirmed Vital Signs Oximetry 96 12/12/2023 Blood pressure diastolic 82 mm Hg 12/12/2023 Height 66 in 12/12/2023 Blood pressure systolic 124 mm Hg 12/12/2023 Weight 187.2 lbs 12/12/2023 BMI 30.21 kg/m2 12/12/2023 Encounters Encounter Location Date Provider Diagnosis [facility] [address] [place], [place] [id number] [facility] [address] [place] [place] [id number] 07/16/2023 Yuki Neftali [facility] [address] [id number] 08/08/2023 Yuki Lindsay Type 2 diabetes mellitus with hyperglycemia, without long-term current use of insulin E11.65 and Hyperlipidemia, unspecified hyperlipidemia type E78.5 [facility] [address] [id number] 08/11[facility] [address] [place] [id number] 10/28/2023 Ashlynchastity Hardino Type 2 diabetes mellitus with hyperglycemia, without long-term current use of insulin E11.65 [facility] [address] [place], [place] [id number] 11/11/2023 Ashlynchastity Hardino Hyperlipidemia, unspecified hyperlipidemia type E78.5 [facility] [address] [place], [place] [id number] 12/12/2023 Ashlyn Hardino Encounter for examination for driving license Z02.4 ; Essential hypertension I10 ; Mixed hyperlipidemia E78.2 ; Type 2 diabetes mellitus with hyperglycemia, without long-term current use of insulin E11.65 ; Obstructive sleep apnea, adult G47.33 ; Current mild episode of major depressive disorder without prior episode F32.0 and Generalized anxiety disorder F41.1 Assessments Encounter Date Diagnosis (ICD Code) Assessment Notes Treat ment Notes Treatment Clinical Notes 12/12/2023 Essential hypertension (ICD-10 - I10) Stable condition, continue treatment plan 12/12/2023 Encounter for examination for driving license (ICD-10 - Z02.4) Patient meets standards in 49 WCZ558.41. Qualifies for 1 year certificate 08/08/2023 Type 2 diabetes mellitus with hyperglycemia, without long-term current use of insulin (ICD-10 - E11.65) 10/28/2023 Type 2 diabetes mellitus with hyperglycemia, without long-term current use of insulin (ICD-10 - E11.65) 11/11/2023 Hyperlipidemia, unspecified hyperlipidemia type (ICD-10 - E78.5) 12/12/2023 Mixed hyperlipidemia (ICD-10 - E78.2) Stable condition, continue treatment plan 08/08/2023 Hyperlipidemia, unspecified hyperlipidemia type (ICD-10 - E78.5) 12/12/2023 Type 2 diabetes mellitus with hyperglycemia, without long-term current use of insulin (ICD-10 - E11.65) Stable condition, continue treatment plan 12/12/2023 Obstructive sleep apnea, adult (ICD-10 - G47.33) Stable condition, continue treatment plan 12/12/2023 Current mild episode of major depressive disorder without prior episode (ICD-10 - F32.0) Stable condition, continue treatment plan 12/12/2023 Generalized anxiety disorder (ICD-10 - F41.1) Stable condition, continue treatment plan 12/12/2023 Other >30 minutes was spent on record review, care coordination, face to face time with the patient, and documentation for today's visit Plan Of Treatment No Information Insurance Providers Payer Name Payer Address Payer Phone Subscriber Number Group Number Insured Name Patient Relationship to Insured Coverage Start Date Coverage End Date [facility] [address] [address] [place] [phone] [id number] Natacha Wray Spouse - patient is the spouse of the insured 2 Medical (General) History Medical History History ICD Code hypertension Diverticulitis 2016 x 2 Surgical History Surgery Date(Month/Year) Bilat knee arthroscopy- torn cartilige, bone chips 07/2009 Vasectomy reversal 2012, 2017 Appendix 1982 Tonsils 1981 Vasectomy 2002 Hospitalization History Reason Date(Month/Year) see surgical history
== END 2024-03-01 08:30 | disposition home or self-care (01) ==
PROVIDERS: PCP Nurse Practitioner Family; Visit Provider Family Medicine
DX: R10.9 Unspecified abdominal pain (principal)
CPT/HCPCS: 80053; 83690

== ENCOUNTER 2024-08-04 16:02 | Outpatient (CLI) | payer OTHER, SELFPAY | END 2024-08-04 16:03 | disposition home or self-care (01) | LOC: LKVREF 16:03 | PROVIDERS: PCP Nurse Practitioner Family; Visit Provider Family Medicine | DX: E78.5 Hyperlipidemia, unspecified (principal) | CPT/HCPCS: 80061 ==

== ENCOUNTER 2024-08-20 13:02 | Outpatient (CLI) | payer OTHER, SELFPAY | END 2024-08-20 13:03 | disposition home or self-care (01) | PROVIDERS: PCP Nurse Practitioner Family; Visit Provider Family Medicine | DX: N12 Tubulo-interstitial nephritis, not specified as acute or chronic (principal); B96.29 Other Escherichia coli [E. coli] as the cause of diseases classified elsewhere | CPT/HCPCS: 87086; 87186 ==

== ENCOUNTER 2024-08-20 15:28 | Outpatient (CLI) | payer OTHER, SELFPAY ==
--- NOTE | 2024-08-20 16:00 | CRLHL7_ITS ---
For Patients: As a result of the Century Cures Act, medical imaging exams and procedure reports are released immediately into your electronic medical record. You may view this report before your referring provider. If you have questions, please contact your health care provider. INDICATION: ABD PAIN, HX OF DIVERTICULITIS, AIR BUBBLES IN URINE, UTI, ENLARGED PROSTATE. Concern for colovesical fistula. COMPARISON: None. TECHNIQUE: CT of the abdomen and pelvis with intravenous contrast (90 milliliters Isovue 370). FINDINGS: Lung bases: No pleural effusion. Liver: Smooth hepatic contour. No suspicious hepatic lesions are identified. Gallbladder and biliary tree: Unremarkable CT appearance. Spleen: No splenomegaly. Pancreas: Normal. Adrenal glands: Normal. Kidneys and ureters: No hydroureteronephrosis. Subcentimeter hypoattenuating focus at the right lower renal pole is too small to characterize, but statistically likely to represent a cyst. Bladder and gastrointestinal tract: Trace gas within the lumen of the bladder. There is focal nodular appearing thickening and hyperattenuation of the anterior bladder dome on the left side measuring 1.7 x 1.5 centimeters with adjacent less pronounced bladder wall thickening (2/132). There is no discernible fat plane between the sigmoid colon and the left anterior bladder dome and there is focal fat stranding and colonic wall thickening adjacent to this region (5/78). 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 Severe colonic diverticulosis. Visualized reproductive organs: Mildly enlarged prostate. Peritoneal cavity: No free fluid or free air. Lymph nodes: No enlarged abdominal or pelvic lymph nodes by CT size criteria. Vessels: No abdominal aortic aneurysm. Mild aortic calcification. Abdominal and pelvic wall: Small fat containing right greater than left inguinal hernia. Tiny fat containing umbilical hernia. Bones: There are osseous degenerative changes. Mild anterior vertebral body wedging in the thoracolumbar spine. IMPRESSION: 1. 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 2. Focal nodular thickening of the left anterior bladder dome measuring 1.7 centimeters probably representing reactive edema or phlegmon in this context, but a nonspecific mass lesion can have the same imaging appearance. 3. Mildly enlarged prostate. 4. Small fat containing right greater than left inguinal hernia. Please note that all CT scans at this facility use dose modulation, iterative reconstruction, and/or weight-based dosing when appropriate to reduce radiation dose to as low as reasonably achievable. Dictated by Ben Soliman MD @ 08/20/2024 4:43:10 PM (Electronically Signed)
== END 2024-08-20 15:29 | disposition home or self-care (01) ==
LOC: CT 15:29
PROVIDERS: PCP Family Medicine; Visit Provider Family Medicine
DX: R10.9 Unspecified abdominal pain (principal); N40.0 Benign prostatic hyperplasia without lower urinary tract symptoms; K40.90 Unilateral inguinal hernia, without obstruction or gangrene, not specified as recurrent; N39.0 Urinary tract infection, site not specified; N12 Tubulo-interstitial nephritis, not specified as acute or chronic; B96.29 Other Escherichia coli [E. coli] as the cause of diseases classified elsewhere
CPT/HCPCS: 74177; Q9967

== ENCOUNTER 2024-09-20 12:58 | Outpatient (CLI) | payer OTHER, SELFPAY | END 2024-09-20 12:59 | disposition home or self-care (01) | LOC: NFLDREF 09-27 00:36 | PROVIDERS: PCP Family Medicine; Referring Provider Family Medicine; Visit Provider Family Medicine | DX: E11.9 Type 2 diabetes mellitus without complications (principal); I10 Essential (primary) hypertension; Z01.818 Encounter for other preprocedural examination | CPT/HCPCS: 83036; 85018 ==

== ENCOUNTER 2024-10-04 10:30 | Outpatient (RCR) | payer OTHER, SELFPAY ==
[2024-08-24 11:24] VITALS: BP 145/87; PULSE 67; RESP 17; TEMP 37; O2SAT 96
[2024-08-24] MEDS: 0.9 % SODIUM CHLORIDE 500 ML IV (12:00)
[2024-08-24] MEDS: SODIUM CHLORIDE 0.9 % (FLUSH) 10 ML SYRINGE IVF (12:00)
[2024-08-24] MEDS: ERTAPENEM 1 GM in 0.9 % SODIUM CHLORIDE Mini-bag 100 ML IVPB (12:02)
--- NOTE | 2024-08-24 14:17 | PC.NURSE ---
Pt present at [facility] today for IV antibiotics. Fito requested a PICC line be placed. RN contacted Dr. Friedman and an order to place PICC line was obtained. Pt scheduled for abx tomorrow, 08/25/[address] [facility] at 11:00 AM. PICC Stat contacted and they will come to place PICC line at 10:[address] [facility] department notified.
--- OUTSIDE RECORDS SUMMARY | 2024-08-25 09:49 | XMS_ITS | Referral Summary ---
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 Name Role Phone Juan Antonio Pittman MD Primary Care Provider [phone] Kalia Mckinnon MD Unavailable [phone] Johnson King MD Unavailable [phone] Jewels Guy RN Unavailable [phone] Juan Antonio Pittman MD Unavailable [phone] Encounters Date Type Department Care Team Description 08/04/2024 Telephone [facility] [id number] [place] [phone] Janae Eubanks MD 08/02/2024 Telephone [facility] [address] [phone] Virginia Ramos PA-C Medication Question 08/02/2024 Travel 08/02/2024 12:40 PM SURGICAL SCRUB TECHNOLOGIST Office Visit [facility] [address] [place] [phone] Virginia Ramos PA-C Acute pyelonephritis (Primary Dx) from Last 3 Months Allergies Active Allergy Reactions Criticality Noted Date Comments Bee Venom Anaphylaxis High 07/25/2014 Per patient at his 07-25-2014 OV. Medications lisinopril-hydroc hlorothiazide (PRINZIDE,ZESTORE TIC) 20-12.5 MG per tablet Take 1 tablet by mouth daily 30 tablet 07/25/20 14 Active oxyCODONE-acetami nophen (PERCOCET) 5-325 MG per tabletIndications :Infertility, male, post-vasectomy reversal Take 1 tablet by mouth every 4 hours as needed for pain 30 tablet 10/11/19 17 Active Additional Information Patient not taking.Reported on 08/02/2024 Acetaminophen (TYLENOL PO) Active simvastatin (ZOCOR) 5 MG tablet Take by mouth. 08/28/19 24 Active sertraline (ZOLOFT) 50 MG tablet Take 100 mg by mouth daily. Active predniSONE (DELTASONE) 20 MG tablet Take 20 mg by mouth 2 times daily. Active omeprazole (PRILOSEC) [address] capsule take 1 capsule by mouth every day before a meal Active levocetirizine (XYZAL) 5 MG tablet 12/29/19 23 Active EPINEPHrine (ANY BX GENERIC EQUIV) 0.3 MG/0.3ML injection 2-pack 0.3 MG NEEDED FOR MAJOR ALLERGIC REACTION INTRAMUSCULARLY for 1 09/11/19 24 Active amLODIPine (NORVASC) 10 MG tablet Take 10 mg by mouth daily. Active tadalafil (CIALIS) 10 MG tablet TAKE 1-2 TABLETS BY MOUTH NEEDED for 15 Active venlafaxine (EFFEXOR XR) 75 MG 24 hr capsule Take 75 mg by mouth daily. Active zafirlukast (ACCOLATE) 20 MG tablet Take 20 mg by mouth every 12 hours. Active ciprofloxacin (CIPRO) 500 MG tabletIndications :Acute pyelonephritis Take 1 tablet (500 mg) by mouth 2 times daily for 10 days. 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): Created by Conversion Essential Hypertension Overview (02/23/2021): Created by Conversion Replacement Utility updated for latest IMO load Chronic Reflux Esophagitis Overview (02/06/2021): Created by Conversion Immunizations Name Administration Dates Next Due Td,adult,historic,unspecified 07/27/2007 Social History Tobacco Use Types Packs/Day Years Used Date Smoking Tobacco: Never Smokeless Tobacco: Never Alcohol Use Standard Drinks/Week Comments Yes 0 (1 standard drink = 0.6 oz pur e alcohol) 2 beers per week Adolescent Education Answer Date Record ed Getting School Help Needed Not on file 05/31 Sex and Gender Information Value Date Recorded Sex Assigned at Not on file Legal Sex Male 3:02 AM SURGICAL SCRUB TECHNOLOGIST Gender Identity Not on file Sexual Orientation Not on file 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 Not on file Not on file Last Filed Vital Signs Vital Sign Reading Time Taken Comments Blood Pressure 130/90 08/02/2024 12:02 PM SURGICAL SCRUB TECHNOLOGIST Pulse 122 08/02/2024 12:02 PM SURGICAL SCRUB TECHNOLOGIST Temperature 39.1 C (102.3 F) 08/02/2024 12:02 PM SURGICAL SCRUB TECHNOLOGIST Respiratory Rate 16 10/11/2016 5:20 PM SURGICAL SCRUB TECHNOLOGIST Oxygen Saturation 97% 08/02/2024 12:02 PM SURGICAL SCRUB TECHNOLOGIST Inhaled Oxygen Concentration - - Weight 81.6 kg (180 lb) 08/02/2024 12:02 PM SURGICAL SCRUB TECHNOLOGIST Height 167.6 cm (5' 6) 10/24/2016 8:28 AM SURGICAL SCRUB TECHNOLOGIST Body Mass Index 29.05 10/24/2016 8:28 AM SURGICAL SCRUB TECHNOLOGIST Plan of Treatment Not on file Procedures Procedure Name Priority Date/Time Associated Diagnosis Comments URINE CULTURE Routine 08/02/2024 11:10 AM SURGICAL SCRUB TECHNOLOGIST Acute pyelonephritis URINE MICROSCOPIC EXAM Routine 08/02/2024 11:10 AM SURGICAL SCRUB TECHNOLOGIST Acute pyelonephritis UA MACROSCOPIC WITH REFLEX TO MICRO AND CULTURE Routine 08/02/2024 11:10 AM SURGICAL SCRUB TECHNOLOGIST Acute pyelonephritis LIPID REFLEX TO DIRECT LDL PANEL Routine 09/09/2022 9:33 AM SURGICAL SCRUB TECHNOLOGIST Type 2 diabetes mellitus with hyperglycemia (H) Hyperlipidemia, unspecified COMPREHENSIVE METABOLIC PANEL Routine 09/09/2022 9:33 AM SURGICAL SCRUB TECHNOLOGIST Type 2 diabetes mellitus with hyperglycemia (H) Hyperlipidemia, unspecified from Last 3 Months or Most Recently Relevant to Health Maintenance Results * (ABNORMAL) UA Macroscopic with reflex to Microscopic and Culture - Lab Collect (08/02/2024 11:10 AMCST) Color Urine Yellow Colorless, Straw, Light Yellow, Yellow 08/02/2024 11:14 AM SURGICAL SCRUB TECHNOLOGIST LABORATORY Appearance Urine Clear Clear 08/02/20 24 11:14 AM SURGICAL SCRUB TECHNOLOGIST LABORATORY Glucose Urine Negative Negative mg/dL 08/02/2024 11:14 AM SURGICAL SCRUB TECHNOLOGIST LABORATORY Bilirubin Urine Negative Negative 11:14 AM SURGICAL SCRUB TECHNOLOGIST LABORATORY Ketones Urine Negative Negative mg/dL 08/02/2024 11:14 AM SURGICAL SCRUB TECHNOLOGIST LABORATORY Specific [place] Urine 1.020 1.003 - 1.035 08/02/2024 11:14 AM SURGICAL SCRUB TECHNOLOGIST LABORATORY Blood Urine Moderate(A) Negative 08/02/2024 11:14 AM SURGICAL SCRUB TECHNOLOGIST LABORATORY pH Urine 6.5 5.0 - 7.0 08/02/2024 11:14 AM SURGICAL SCRUB TECHNOLOGIST LABORATORY Protein Albumin Urine >=300(A) Negative mg/dL 08/02/2024 11:14 AM SURGICAL SCRUB TECHNOLOGIST LABORATORY Urobilinogen Urine 0.2 0.2, 1.0 E.U./dL 08/02/2024 11:14 AM SURGICAL SCRUB TECHNOLOGIST LABORATORY Nitrite Urine Positive(A) Negative 08/02/2024 11:14 AM SURGICAL SCRUB TECHNOLOGIST LABORATORY Leukocyte Esterase Urine Small(A) Negative 08/02/2024 11:14 AM SURGICAL SCRUB TECHNOLOGIST LABORATORY Urine MID-STREAM URINE SPECIMEN / Unknown Non-blood Collection / Unknown 08/02/2024 11:10 AM SURGICAL SCRUB TECHNOLOGIST 08/02/2024 11:10 AM SURGICAL SCRUB TECHNOLOGIST us Virginia Ramos PA-C LAB - URINE ORDERABLES Final R esult LABORATORY [facility] Lab [id number] [facility] Lab (no room number, [facility]st [facility]) [address] * (ABNORMAL) Urine Microscopic Exam (08/02/2024 11:10 AM SURGICAL SCRUB TECHNOLOGIST) Bacteria Urine Moderate(A ) None Seen /HPF DEYSI 08/02/2024 11:16 AM SURGICAL SCRUB TECHNOLOGIST LABORATORY RBC Urine 0-2 0-2 /HPF /HPF DEYSI 08/02/2024 11:16 AM SURGICAL SCRUB TECHNOLOGIST LV LABORATORY WBC Urine 50-100(A) 0-5 /HPF /HPF DEYSI 08/02/2024 11:16 AM SURGICAL SCRUB TECHNOLOGIST LABORATORY Urine MID-STREAM URINE SPECIMEN / Unknown Non-blood Collection / Unknown 08/02/2024 11:10 AM SURGICAL SCRUB TECHNOLOGIST 08/02/2024 11:10 AM SURGICAL SCRUB TECHNOLOGIST us Virginia Ramos PA-C LAB - URINE ORDERABLES Final R esult LABORATORY [facility] Lab [address] [facility] Lab (no room number, [facility]st [facility]) [address] * (ABNORMAL) Urine Culture (08/02/2024 11:10 AM SURGICAL SCRUB TECHNOLOGIST) Culture >100,000 CFU/mL Escherichia coli(A) 08/03/2024 11:24 PM SURGICAL SCRUB TECHNOLOGIST [facility] Urine MID-STREAM URINE SPECIMEN / Unknown Non-blood Collection / Unknown 08/02/2024 11:10 AM SURGICAL SCRUB TECHNOLOGIST 08/02/2024 11:14 AM SURGICAL SCRUB TECHNOLOGIST Narrative Organism Antibiotic Method Susceptibility Escherichia coli Ampicillin DEYSI <=2 ug/mL: Susceptible Escherichia coli Ampicillin/ Sulbactam DEYSI <=2 ug/mL: Susceptible Escherichia coli Piperacillin/Tazobactam DEYSI <=4 ug/mL: Susceptible Escherichia coli Cefazolin DEYSI 2 ug/mL: Susceptible Escherichia coli Ceftazidime DEYSI <=0.5 ug/mL: Susceptible Escherichia coli Ceftriaxone DEYSI <=0.25 ug/mL: Susceptible Escherichia coli Cefepime DEYSI <=0.12 ug/mL: Susceptible Escherichia coli Gentamicin DEYSI <=1 ug/mL: Susceptible Escherichia coli Ciprofloxacin DEYSI 0.5 ug/mL: Intermediate Escherichia coli Levofloxacin DEYSI >=8 ug/mL: Resistant Escherichia coli Nitrofurantoin DEYSI <=16 ug/mL: Susceptible Escherichia coli Trimethoprim/Sulfamethoxazole DEYSI <=1/19 ug/mL: Susceptible us Virginia Ramos PA-C LAB - MICRO GENERAL ORDERABLES Final Result [facility] Lab [address] [facility], [address] [place] [address] * (ABNORMAL) Lipid panel reflex to direct LDL (09/09/2022 9:33 AM SURGICAL SCRUB TECHNOLOGIST) [facility] Cholesterol 192 <200 mg/dL 09/09/2022 4:34 PM SURGICAL SCRUB TECHNOLOGIST [facility] Triglycerides 165(H) <150 mg/dL 09/09/2022 4:34 PM SURGICAL SCRUB TECHNOLOGIST [facility] Direct Measure HDL 44 >=40 mg/dL 09/09/2022 4:34 PM SURGICAL SCRUB TECHNOLOGIST [facility] LDL Cholesterol Calculated 115(H) <=100 mg/dL 09/09/2022 4:34 PM SURGICAL SCRUB TECHNOLOGIST [facility] Non HDL Cholesterol 148(H) <130 mg/dL 09/09/2022 4:34 PM SURGICAL SCRUB TECHNOLOGIST [facility] Blood BLOOD SPECIMEN / Unknown Client Draw / Unknown 09/09/2022 9:33 AM SURGICAL SCRUB TECHNOLOGIST 09/09/2022 2:14 PM SURGICAL SCRUB TECHNOLOGIST Narrative [facility] - 09/09/2022 4:34 PM SURGICAL SCRUB TECHNOLOGIST Cholesterol Desirable: <200 mg/dL Triglycerides Normal: Less than 150 mg/dL Borderline High: 150-199 mg/dL High: 200-499 mg/dL Very High: Greater than or equal to 500 mg/dL Direct Measure HDL Female: Greater than or equal to 50 mg/dL Male: Greater than or equal to 40 mg/dL LDL Cholesterol Desirable: <100mg/dL Above Desirable: 100-129 mg/dL Borderline High: 130-159 mg/dL High: 160-189 mg/dL Very High: >= 190 mg/dL Non HDL Cholesterol Desirable: 130 mg/dL Above Desirable: 130-159 mg/dL Borderline High: 160-189 mg/dL High: 190-219 mg/dL Very High: Greater than or equal to 220 mg/dL us Kalpesh Mackey PA-C LAB - BLOOD ORDERABLES Final Result [facility] [place] [facility] [address] [facility], [address] [place] [phone], [facility] [phone] * (ABNORMAL) Comprehensive metabolic panel (09/09/2022 9:33 AM SURGICAL SCRUB TECHNOLOGIST) Sodium 138 136 - 145 mmol/L 09/09/2022 4:34 PM SURGICAL SCRUB TECHNOLOGIST [facility] Potassium 4.2 3.4 - 5.3 mmol/L 09/09/2022 4:34 PM SURGICAL SCRUB TECHNOLOGIST [facility] Chloride 102 98 - 107 mmol/L 09/09/2022 4:34 PM SURGICAL SCRUB TECHNOLOGIST [facility] Carbon Dioxide (CO2) 21(L) 22 - 29 mmol/L 09/09/2022 4:34 PM SURGICAL SCRUB TECHNOLOGIST [facility] Anion Gap 15 7 - 15 mmol/L 09/09/2022 4:34 PM SURGICAL SCRUB TECHNOLOGIST [facility] Urea Nitrogen 20.5(H) 6.0 - 20.0 mg/dL 09/09/2022 4:34 PM SURGICAL SCRUB TECHNOLOGIST [facility] Creatinine 0.97 0.67 - 1.17 mg/dL 09/09/2022 4:34 PM SURGICAL SCRUB TECHNOLOGIST [facility] Calcium 9.5 8.6 - 10.0 mg/dL 09/09/2022 4:34 PM SURGICAL SCRUB TECHNOLOGIST [facility] Glucose 120(H) 70 - 99 mg/dL 09/09/2022 4:34 PM SURGICAL SCRUB TECHNOLOGIST [facility] Alkaline Phosphatase 66 40 - 129 U/L 09/09/2022 4:34 PM SURGICAL SCRUB TECHNOLOGIST [facility] AST 22 10 - 50 U/L 09/09/2022 4:34 PM SURGICAL SCRUB TECHNOLOGIST [facility] ALT 32 10 - 50 U/L 09/09/2022 4:34 PM SURGICAL SCRUB TECHNOLOGIST [facility] Protein Total 7.0 6.4 - 8.3 g/dL 09/09/2022 4:34 PM SURGICAL SCRUB TECHNOLOGIST [facility] Albumin 4.6 3.5 - 5.2 g/dL 09/09/2022 4:34 PM SURGICAL SCRUB TECHNOLOGIST [facility] Bilirubin Total 0.4 <=1.2 mg/dL 09/09/2022 4:34 PM SURGICAL SCRUB TECHNOLOGIST [facility] GFR Estimate >90 >60 mL/min/1.7 3m2 09/09/2022 4:34 PM SURGICAL SCRUB TECHNOLOGIST [facility] Comment:Effective July 262020 eGFRcr in adults is calculated using the 2020 CKD-EPI creatinine equation which includes age and gender (Mabel et al., NEJM, DOI: 10.1056/HXYAib9106311) Blood BLOOD SPECIMEN / Unknown Client Draw / Unknown 09/09/2022 9:33 AM SURGICAL SCRUB TECHNOLOGIST 09/09/2022 2:14 PM SURGICAL SCRUB TECHNOLOGIST us Kalpesh Mackey PA-C LAB - BLOOD ORDERABLES Final Result [facility] [place] [facility] [address] [facility], [address] [place] [address], [facility] [phone] from Last 3 Months or Most Recently Relevant to Health Maintenance Insurance [employer] Care Teams Sweet Goods Machine Operator Relationship Specialty Start Date End Date Juan Antonio Pittman MD PCP - General Family Practice 07/25/14 Kalia Mckinnon MD Urology 08/29/16 Johnson King MD [address] [place] [address] [address] [place] [address] Urology 08/29/16 Jewels Guy, RN Registered Nurse Urology 09/27/16 Juan Antonio Pittman MD Referring Physician Family Practice 09/27/16
--- OUTSIDE RECORDS SUMMARY | 2024-08-25 09:49 | XMS_ITS | Encounter Summary ---
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 Gender Identity Not on file Sexual Orientation Not on file 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
--- OUTSIDE RECORDS SUMMARY | 2024-08-25 09:49 | XMS_ITS | Encounter Summary ---
Author Organization [place] Address [facility] [place] [address] Care Team Providers Care Air Control/Anti Air Warfare Officer Name Role Phone Juan Antonio Pittman MD Primary Care Provider [phone] Kalia Mckinnon MD Unavailable [phone] Johnson King MD Unavailable [phone] Jewels Guy RN Unavailable [phone] Juan Antonio Pittman MD Unavailable [phone] Reason for Visit * Reason Onset Date Comments Medication Question 08/02/2024 Encounter Details Date Type Department Care Team (Late st Contact Info) Description 08/02/2024 Telephone [facility] [address] [phone] Virginia Ramos PA-C 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 Pt has verbalized an understanding of this. Pt states that he ate an apple and vomited the apple, pt was advised that might be a side effect from the rocephin given in office, pt also didn't eat anything this morning. Pt was also advised to drink clear liquids ( eat some soup, toast, Gatorade) and then take his Cipro. If vomiting continues heneed to go to the ER. Asper Virginia Ramos. Pt has verbalized an understanding of all of the above. Heather Yates MA on 08/02/2024 at 2:13 PM LATE CLERK * Telephone Encounter - Jarret Mosher RN - 08/02/2024 1:22 PM CST Patient calls, was prescribed Ciprofloxin today for acute Pyelonephritis. Patient is at his pharmacy, pharmacist is wondering if ok to take Cipro along with Simvastatin the patient is also currently taking. Will forward to Urgent Care pool. LATE CLERK documented in this encounter Plan of Treatment Not on file documented as of this encounter Visit Diagnoses Not on filedocumented in this encounter Care Teams Air Control/Anti Air Warfare Officer Relationship Specialty Start Date End Date Juan Antonio Pittman MD PCP - General Family Practice 07/25/14 Kalia Mckinnon MD Urology 08/29/16 Johnson King MD [address] [place] [id number] Urology 08/29/16 Jewels Guy, RN Registered Nurse Urology 09/27/16 Juan Antonio Pittman MD Referring Physician Family Practice 09/27/16 documented as of this encounter
--- OUTSIDE RECORDS SUMMARY | 2024-08-25 09:49 | XMS_ITS | Clinical Summary ---
Author Organization [place] Address [facility] [place] [address] Care Team Providers Care Machine Joint Cutter Name Role Phone Juan Antonio Pittman MD Primary Care Provider [phone] Kalia Mckinnon MD Unavailable Johnson King MD Unavailable [phone] Jewels Guy RN Unavailable [phone] Juan Antonio Pittman MD Unavailable [phone] Allergies Active Allergy Reactions Criticality Noted Date [...] Reflux Esophagitis Overview (02/06/2021): Created by Conversion Encounters Date Type Department Care Team Description 08/04/2024 Telephone [facility] [address] [place] [address] Janae Eubanks MD 08/02/2024 12:40 PM GRAPHIC ART TECHNICIAN Office Visit [facility] [address] [place] [address] Virginia Ramos PA-C Acute pyelonephritis (Primary Dx) 08/02/2024 Telephone [facility] [address] [address] Virginia Ramos PA-C Medication Question 08/02/2024 Travel from Last 3 Months Immunizations Name Administration Dates Next Due Td,adult,historic,unspecified 07/27/2007 Family History Relation Status Comments Daughter Alive Father Mother Sister 1 Alive Sister 2 Alive Sister 3 Alive Sister 4 Alive Sister 5 Alive Sister 6 Alive Sister 7 Alive Son Alive Social History Tobacco Use Types Packs/Day Years [...] on file 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 Gender Identity Not on file Sexual Orientation Not on file 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 Not on file Not on file Last Filed Vital Signs Vital Sign Reading Time Taken Comments Blood Pressure 130/90 08/02/2024 12:02 PM GRAPHIC ART TECHNICIAN Pulse 122 08/02/2024 12:02 PM GRAPHIC ART TECHNICIAN Temperature 39.1 C (102.3 F) 08/02/2024 12:02 PM GRAPHIC ART TECHNICIAN Respiratory Rate 16 10/11/2016 5:20 PM GRAPHIC ART TECHNICIAN Oxygen Saturation 97% 08/02/2024 12:02 PM GRAPHIC ART TECHNICIAN Inhaled Oxygen Concentration - - Weight 81.6 kg (180 lb) 08/02/2024 12:02 PM GRAPHIC ART TECHNICIAN Height 167.6 cm (5' 6) 10/24/2016 8:28 AM GRAPHIC ART TECHNICIAN Body Mass Index 29.05 10/24/2016 8:28 AM GRAPHIC ART TECHNICIAN Plan of Treatment Health Maintenance Due Date Last Done Comments A1C 1966 ADVANCE CARE PLANNING 1966 ANNUAL REVIEW OF HM ORDERS 1966 CT COLONOGRAPHY 1966 DEPRESSION ACTION PLAN 1966 DIABETIC FOOT EXAM 1966 EYE EXAM 1966 FIT 1966 FLEX SIG 1966 MICROALBUMIN 1966 PHQ-9 1966 sDNA (Cologuard) 1966 YEARLY PREVENTIVE VISIT 1969 COLONOSCOPY 1976 COLORECTAL CANCER SCREENING 1976 HIV SCREENING 1981 HEPATITIS C SCREENING 1984 HEPATITIS B IMMUNIZATION (1 of 3 - 19+ 3-dose series) 1985 Pneumococcal Vaccine: 50+ Years (1 of 2 - PCV) 1985 ZOSTER IMMUNIZATION (1 of 2) 2016 BMP 09/09/2023 09/09/2022, 05/0 01/2022, 12/27/2020, Additional history exists LIPID 09/09/2023 09/09/2022, 05/0 01/2022, 03/02/2021, Additional history exists COVID-19 Vaccine ( season) 2024 08/12/2021, 12/27/2020, 12/06/2020 INFLUENZA VACCINE (#1) 2024 6, 05/27/2014, 05/20/2013, Additional history exists DTAP/TDAP/TD IMMUNIZATION (2 - Td or Tdap) 06/22/2028 06/22/2018, 07/27/2007, 07/27/2007 RSV VACCINE (1 - 1-dose 75+ series) 2041 HPV IMMUNIZATION Aged Out No longer e ligible based on patient's age to complete this topic MENINGITIS IMMUNIZATION Aged Out No l onger eligible based on patient's age to complete this topic RSV MONOCLONAL ANTIBODY Aged Out No l onger eligible based on patient's age to complete this topic Procedures Procedure Name Priority Date/Time Associated Diagnosis Comments URINE CULTURE Routine 08/02/2024 11:10 AM GRAPHIC ART TECHNICIAN Acute pyelonephritis URINE MICROSCOPIC EXAM Routine 08/02/2024 11:10 AM GRAPHIC ART TECHNICIAN Acute pyelonephritis UA MACROSCOPIC WITH REFLEX TO MICRO AND CULTURE Routine 08/02/2024 11:10 AM GRAPHIC ART TECHNICIAN Acute pyelonephritis LIPID REFLEX TO DIRECT LDL PANEL Routine 09/09/2022 9:33 AM GRAPHIC ART TECHNICIAN Type 2 diabetes mellitus with hyperglycemia (H) Hyperlipidemia, unspecified COMPREHENSIVE METABOLIC PANEL Routine 09/09/2022 9:33 AM GRAPHIC ART TECHNICIAN Type 2 diabetes mellitus with hyperglycemia (H) Hyperlipidemia, unspecified from Last 3 Months or Most Recently Relevant to Health Maintenance Results * (ABNORMAL) UA Macroscopic with reflex to Microscopic and Culture - Lab Collect (08/02/2024 11:10 AMC) Color Urine Yellow Colorless, Straw, Light Yellow, Yellow 08/02/2024 11:14 AM GRAPHIC ART TECHNICIAN LABORATORY Appearance Urine Clear Clear 08/02/20 24 11:14 AM [facility] Glucose Urine Negative Negative mg/dL 08/02/2024 11:14 AM [facility] Bilirubin Urine Negative Negative 11:14 AM [facility] Ketones Urine Negative Negative mg/dL 08/02/2024 11:14 AM [facility] Specific [place] Urine 1.020 1.003 - 1.035 08/02/2024 11:14 AM [facility] Blood Urine Moderate(A) Negative 08/02/2024 11:14 AM [facility] pH Urine 6.5 5.0 - 7.0 08/02/2024 11:14 AM [facility] Protein Albumin Urine >=300(A) Negative mg/dL 08/02/2024 11:14 AM [facility] Urobilinogen Urine 0.2 0.2, 1.0 E.U./dL 08/02/2024 11:14 AM [facility] Nitrite Urine Positive(A) Negative 08/02/2024 11:14 AM [facility] Leukocyte Esterase Urine Small(A) Negative 08/02/2024 11:14 AM [facility] Urine MID-STREAM URINE SPECIMEN / Unknown Non-blood Collection / Unknown 08/02/2024 11:10 AM GRAPHIC ART TECHNICIAN 08/02/2024 11:10 AM GRAPHIC ART TECHNICIAN us Virginia Ramos PA-C LAB - URINE ORDERABLES Final R esult LABORATORY [facility] [address] [facility] (no room number, 1st floor of clinic) [place] [address], [facility] * (ABNORMAL) Urine Microscopic Exam (08/02/2024 11:10 AM GRAPHIC ART TECHNICIAN) Bacteria Urine Moderate(A ) None Seen /HPF DEYSI 08/02/2024 11:16 AM GRAPHIC ART TECHNICIAN LV LABORATORY RBC Urine 0-2 0-2 /HPF /HPF DEYSI 08/02/2024 11:16 AM GRAPHIC ART TECHNICIAN LV LABORATORY WBC Urine 50-100(A) 0-5 /HPF /HPF DEYSI 08/02/2024 11:16 AM GRAPHIC ART TECHNICIAN LV LABORATORY Urine MID-STREAM URINE SPECIMEN / Unknown Non-blood Collection / Unknown 08/02/2024 11:10 AM GRAPHIC ART TECHNICIAN 08/02/2024 11:10 AM GRAPHIC ART TECHNICIAN Virginia Ramos PA-C LAB - URINE ORDERABLES Final R esult LABORATORY [facility] [id number] [place] [address] (no room number, 1st floor of clinic) [place] [address] * (ABNORMAL) Urine Culture (08/02/2024 11:10 AM GRAPHIC ART TECHNICIAN) Culture >100,000 CFU/mL Escherichia coli(A) 08/03/2024 11:24 PM GRAPHIC ART TECHNICIAN [facility] Urine MID-STREAM URINE SPECIMEN / Unknown Non-blood Collection / Unknown 08/02/2024 11:10 AM GRAPHIC ART TECHNICIAN 08/02/2024 11:14 AM GRAPHIC ART TECHNICIAN Narrative Organism Antibiotic Method Susceptibility Escherichia coli [...] GENERAL ORDERABLES Final Result [facility] LABORATORY [facility] Inf. Diseases Diag. Lab [address] [facility] [place] [address] * (ABNORMAL) Lipid panel reflex to direct LDL (09/09/2022 9:33 AM GRAPHIC ART TECHNICIAN) Pathologist [facility] Cholesterol 192 <200 mg/dL 09/09/2022 4:34 PM GRAPHIC ART TECHNICIAN [facility] LAB[facility]AT[facility] Triglycerides 165(H) <150 mg/dL 09/09/2022 4:34 PM GRAPHIC ART TECHNICIAN [facility] Direct Measure HDL 44 >=40 mg/dL 09/09/2022 4:34 PM GRAPHIC ART TECHNICIAN [facility] LAB[facility] LDL Cholesterol Calculated 115(H) <=100 mg/dL 09/09/2022 4:34 PM GRAPHIC ART TECHNICIAN [facility] LAB[facility] Non HDL Cholesterol 148(H) <130 mg/dL 09/09/2022 4:34 PM GRAPHIC ART TECHNICIAN [facility] Blood BLOOD SPECIMEN / Unknown Client Draw / Unknown 09/09/2022 9:33 AM GRAPHIC ART TECHNICIAN 09/09/2022 2:14 PM GRAPHIC ART TECHNICIAN Narrative [facility] LAB[facility]AT[facility] - 09/09/2022 4:34 PM GRAPHIC ART TECHNICIAN Cholesterol Desirable: <200 mg/dL Triglycerides Normal: Less [...] Greater than or equal to 220 mg/dL Kalpesh Mackey PA-C LAB - BLOOD ORDERABLES Final Result [facility]AT[facility] [address] [facility][[address]], [address] [place] [id number], [facility] [phone] * (ABNORMAL) Comprehensive metabolic panel (09/09/2022 9:33 AM GRAPHIC ART TECHNICIAN) Sodium 138 136 - 145 mmol/L 09/09/2022 4:34 PM GRAPHIC ART TECHNICIAN [facility] Potassium 4.2 3.4 - 5.3 mmol/L 09/09/2022 4:34 PM GRAPHIC ART TECHNICIAN [facility] Chloride 102 98 - 107 mmol/L 09/09/2022 4:34 PM GRAPHIC ART TECHNICIAN [facility] LAB[facility]AT[facility] Carbon Dioxide (CO2) 21(L) 22 - 29 mmol/L 09/09/2022 4:34 PM GRAPHIC ART TECHNICIAN [facility] Anion Gap 15 7 - 15 mmol/L 09/09/2022 4:34 PM GRAPHIC ART TECHNICIAN [facility] Urea Nitrogen 20.5(H) 6.0 - 20.0 mg/dL 09/09/2022 4:34 PM GRAPHIC ART TECHNICIAN [facility] Creatinine 0.97 0.67 - 1.17 mg/dL 09/09/2022 4:34 PM GRAPHIC ART TECHNICIAN [facility] Calcium 9.5 8.6 - 10.0 mg/dL 09/09/2022 4:34 PM GRAPHIC ART TECHNICIAN [facility] Glucose 120(H) 70 - 99 mg/dL 09/09/2022 4:34 PM GRAPHIC ART TECHNICIAN [facility] LAB[facility]AT[facility] Alkaline Phosphatase 66 40 - 129 U/L 09/09/2022 4:34 PM GRAPHIC ART TECHNICIAN [facility] LAB[facility] AST 22 10 - 50 U/L 09/09/2022 4:34 PM GRAPHIC ART TECHNICIAN [facility] LAB[facility]AT[facility] ALT 32 10 - 50 U/L 09/09/2022 4:34 PM GRAPHIC ART TECHNICIAN [facility] Protein Total 7.0 6.4 - 8.3 g/dL 09/09/2022 4:34 PM GRAPHIC ART TECHNICIAN [facility] Albumin 4.6 3.5 - 5.2 g/dL 09/09/2022 4:34 PM GRAPHIC ART TECHNICIAN [facility] Bilirubin Total 0.4 <=1.2 mg/dL 09/09/2022 4:34 PM GRAPHIC ART TECHNICIAN [facility] GFR Estimate >90 >60 mL/min/1.7 3m2 09/09/2022 4:34 PM GRAPHIC ART TECHNICIAN [facility] Comment:Effective July 262020 eGFRcr in adults is calculated using the 2020 CKD-EPI creatinine equation which includes age and gender ([employer] et al., NEJM, DOI: 10.1056/ECOBgq9829413) Blood BLOOD SPECIMEN / Unknown Client Draw / Unknown 09/09/2022 9:33 AM GRAPHIC ART TECHNICIAN 09/09/2022 2:14 PM GRAPHIC ART TECHNICIAN us Kalpesh Mackey PA-C LAB - BLOOD ORDERABLES Final Result [facility] [address] [facility][1], [address] [place] [address], [facility] [phone] from Last 3 Months or Most Recently Relevant to Health Maintenance Insurance [employer] [facility] [facility] Address: [address] [address] [place] [address] Care Teams Machine Joint Cutter Relationship Specialty Start Date End Date Juan Antonio Pittman MD PCP - General Family Practice 07/25/14 Kalia Mckinnon MD Urology 08/29/16 Johnson King MD [address] [place] [address] Urology 08/29/16 Jewels Guy, [place] Registered Nurse Urology 09/27/16 Juan Antonio Pittman MD Referring Physician Family Practice 09/27/16
--- OUTSIDE RECORDS SUMMARY | 2024-08-25 09:49 | XMS_ITS | Clinical Summary ---
Author Organization [facility] Address [address] [place] [address] Care Team Providers Care Carbon Paste Mixer Operator Name Role Phone Unavailable Primary Care Provider Unavailabl e Source Comments Patient records contain information from all sites at [facility]. For routine questions regarding patient records, call [phone] during business hours, M-F 8:00 AM - 5:00 PM Central Time. Record requests for emergency care only can be directed to [phone] at any time.[facility] Allergies Active Allergy Reactions Criticality Noted Date Comments Hymenoptera Allergenic Extract Anaphylaxis High 03/25 Venom-Honey Bee Anaphylaxis High 08/09/2009 Bee stings Medications amLODIPine (NORVASC) 10 mg tablet Take 1 tablet by mouth daily. 10/18/19 24 Active amLODIPine-mary rvastatin (CADUET) 10-10 mg per tablet 08/26/19 21 Active EPINEPHrine 0.3 mg/0.3 mL injection syringe INJECT 0.3 MG (0.3 ML) INTRAMUSCULARLY ONCE A SINGLE DOSE MAY REPEAT ONCE 09/11/19 24 Active famotidine (PEPCID) 20 mg tablet TAKE 1 TABLET BY MOUTH TWICE A DAY FOR HIVES. NOT COVERED 11/13/19 24 Active hylan g-f 20 (SYNVISC-ONE) 48 mg/6 mL injection Inject 48 mg into the joint. 05/25/20 20 Active ibuprofen (ADVIL,MOTRIN) 200 mg tablet Take 400 mg by mouth. Active levocetirizine (XYZAL) 5 mg tablet 12/29/19 23 Active metFORMIN (GLUCOPHAGE) 1,000 mg tablet 10/25/19 24 Active omeprazole (PriLOSEC) [address] capsule 10/25/19 24 Active predniSONE (DELTASONE) 20 mg tablet Take 2 tablets by mouth daily. 11/13/19 24 Active sennosides (SENOKOT) 15 mg tablet Take 15 mg by mouth. 08/09/20 09 Active sertraline (ZOLOFT) 100 mg tablet 08/31/19 23 Active simvastatin 20 mg/5 mL (4 mg/mL) suspension 09/28/19 23 Active venlafaxine XR (EFFEXOR-XR) 75 mg 24 hr capsule Take 75 mg by mouth daily. Active zafirlukast (ACCOLATE) 20 mg tablet 12/29/19 23 Active Social History Tobacco Use Types Packs/Day Years Used Date Smoking Tobacco: Never Assessed [facility] Utilities Answer Date Recorded In the past 12 months has th e [employer], gas, oil, or water Within3 threatened to shut off services in your [...] your living situation today? 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 Gender Identity Male 11/30/2023 3:02 PM CDT Sexual Orientation Straight 11/30/2023 3: 02 PM CDT Last Filed Vital Signs Vital Sign Reading Time Taken Comments Blood Pressure - - Pulse - - Temperature 36.7 C (98.1 F) 12/01/2023 7:28 AM CDT Respiratory Rate - - Oxygen Saturation - [...] 3 - 19+ 3-dose series) 1985 Pneumococcal vaccine (50+ years) (1 of 1 - PCV) 2016 Zoster Vaccines (1 of 2) 2016 Depression Screening (Annual PHQ-2) 08/25/2023 COVID-19 Vaccine ( season) 2024 08/12/2021, 12/27/2020, 12/06/2020 Influenza Vaccine (#1) 2024 6, 05/27/2014, 05/20/2013, Additional history exists DTaP,Tdap,and Td Vaccines (2 - Td or Tdap) 06/22/2028 06/22/2018, 07/27/2007 IPV Vaccines Aged Out No longer eligi ble based on patient's age to complete this topic Pneumococcal vaccine (0-49 years) Aged Out No longer eligible based on patient's age to complete this topic Insurance [facility]
--- OUTSIDE RECORDS SUMMARY | 2024-08-25 09:49 | XMS_ITS | Continuity of Care Document ---
Author Name [place] User [email or web address] [place] Address Unknown Organization Unknown Address Unknown Procedures FILTER APPLIED:Only known Procedures with Onset Date within the last 5 years Procedure Date Procedure Provider Additiona l Information Status C-REACTIVE PROTEIN (17863) Completed COMPLETE CBC W/AUTO DIFF WBC (01428) Completed ASSAY OF LIPASE (57168) Completed HEPATIC FUNCTION PANEL (06176) Completed METABOLIC PANEL TOTAL CA (91141) Completed ROUTINE VENIPUNCTURE (82551) Completed EMERGENCY DEPT VISIT LOW MDM (41037) Completed COMPREHEN METABOLIC PANEL (77321) Completed ASSAY OF PSA TOTAL (32635) Completed LIPID PANEL (12626) Comp leted ASSAY OF TROPONIN QUANT (42390) Completed THER/PROPH/DIAG INJ IV PUSH (64930) Completed THER/PROPH/DIAG INJ SC/IM (81973) Completed ROUTINE VENIPUNCTURE (59484) Completed MEASURE BLOOD OXYGEN LEVEL (96650) Completed ELECTROCARDIOGRAM TRACING (37633) Completed TX/PRO/DX INJ NEW DRUG ADDON (05014) Completed EMERGENCY DEPT VISIT MOD MDM (48223) Completed Encounters FILTER APPLIED:Only known Encounters with Admission Date within the last 5 years Encounter Location Admission Discharge Billing Code Mechanic Foreman Lizbeth bryan [facility]
--- OUTSIDE RECORDS SUMMARY | 2024-08-25 09:49 | XMS_ITS | Encounter Summary ---
Author Organization [place] Address [address] [facility] [place] [address] Care Team Providers Care Gaggerman Name Role Phone Juan Antonio Pittman MD Primary Care Provider [phone] Kalia Mckinnon MD Unavailable [phone] Johnson King MD Unavailable [phone] Jewels uGy RN Unavailable [phone] Juan Antonio Pittman MD Unavailable [phone] Encounter Details Date Type Department Care Team (Late st Contact Info) Description 08/04/2024 Telephone [facility] [address] [place] [address] Janae Eubanks MD [address] [place] [id number] Social History Tobacco Use Types Packs/Day Years [...] on file 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 Tawny Ryan Pest Control Service Representative RANCE CLAIMS SUPERVISOR * Telephone Encounter - Janae Eubanks MD - 08/04/2024 10:45 AM CST Please contact patient to find out if his urinary symptoms are improving. If they are not, we will switch to a different antibiotic. RANCE CLAIMS SUPERVISOR documented in this encounter Plan of Treatment Not on file documented as of this encounter Visit Diagnoses Not on filedocumented in this encounter Care Teams Gaggerman Relationship Specialty Start Date End Date Juan Antonio Pittman MD PCP - General Family Practice 07/25/14 Kalia Mckinnon MD Urology 08/29/16 Johnson King MD [address] [facility] [address] [place] [address] Urology 08/29/16 Jewels Guy, RN Registered Nurse Urology 09/27/16 Juan Antonio Pittman MD Referring Physician Family Practice 09/27/16 documented as of this encounter
--- OUTSIDE RECORDS SUMMARY | 2024-08-25 09:49 | XMS_ITS | Encounter Summary ---
Author Organization [facility] Address [address] [place] [address] Care Team Providers Care Repair Department Manager Name Role Phone Juan Antonio Pittman MD Primary Care Provider [phone] Kalia Mckinnon MD Unavailable [phone] Johnson King MD Unavailable [phone] Jewels Guy RN Unavailable [phone] Juan Antonio Pittman MD Unavailable [phone] Reason for Referral * Clinically Administered Medications (Routine) - Closed Specialty Diagnoses / Procedures Referred By Contdoyle t Referred To Contact Urgent Care Diagnoses Urinary problem Procedures ZZC CEFTRIAXONE NA INJ /250MG Virginia Ramos PA-C [facility] [address] [place] [address] Phone: tel: fax: [facility] [address] [place] [phone] Phone: tel: fax: Referral ID Status Reason Start Date Expiration Date Visits Re quested Visits Authorized [id number] Closed 08/02/2024 08/02/2025 1 1 BEATER Reason for Visit * Reason Comments Urgent Care X1 month urgency, pa inful/burning urination, odor, no blood in urine, flank pain bilateral, chills, fever last night, X2 weeks headache, dull ache stomach, taking tylenol 3 am last night * Clinically Administered Medications (Routine) - Closed Specialty Diagnoses / Procedures Referred By Dilma t Referred To Contact Urgent Care Diagnoses Urinary problem Procedures ZZC CEFTRIAXONE NA INJ /250MG Virginia Ramos PA-C [address] [address] Phone: tel: fax: [facility] [id number] [place] [phone] Phone: tel: fax: Referral ID Status Reason Start Date Expiration Date Visits Re quested Visits Authorized [id number] Closed 08/02/2024 08/02/2025 1 1 Encounter Details Date Type Department Care Team (Latest Contact Info) Description 08/02/2024 12:40 PM GOLD BEATER Office Visit [facility] [id number] [place] [id number] Virginia Ramos PA-C [address] [address] Acute pyelonephritis (Primary Dx) Social History Tobacco Use Types [...] on file Legal Sex Male 3:02 AM GOLD BEATER Gender Identity Not on file Sexual Orientation Not on file 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 Not on file Not on file documented as of this encounter Last Filed Vital Signs Vital Sign Reading Time Taken Comments Blood Pressure 130/90 08/02/2024 12:02 PM GOLD BEATER Pulse 122 08/02/2024 12:02 PM GOLD BEATER Temperature 39.1 C (102.3 F) 08/02/2024 12:02 PM GOLD BEATER Respiratory Rate - - Oxygen Saturation 97% 08/02/2024 12:02 PM GOLD BEATER Inhaled Oxygen Concentration - - Weight 81.6 kg (180 lb) 08/02/2024 12:02 PM GOLD BEATER Height - - Body Mass Index 29.05 10/24/2016 8:28 AM GOLD BEATER documented in this encounter Patient Instructions * Patient Instructions* Virginia Ramos PA-C - 08/02/2024 12:40 PM GOLD BEATER Patient was educated on the natural course of condition. Take medication as directed. Side effects discussed. Conservative measures include drinking fluids (water). See your primary care provider if symptoms do not improve in 1 to 2 days. Seek emergency care immediately if your symptoms worsen or fever does not improve in 24 hours. BEATER BEATER * Attachments The following attachments cannot be sent through Care Everywhere. * Pyelonephritis (Hong Konger) documented in this encounter Progress Notes * Virginia Ramos PA-C - 08/02/2024 12:40 PM CST URGENT CARE VISIT: SUBJECTIVE: Fito Wray is a 58 year old male who presents today for a possible UTI. Symptoms of dysuria, urgency, and frequency have been going on for 1 month(s). Symptoms were sudden onset and mild and moderate. Patient denies nausea and vomiting. This patient does not have a history of urinary tract infections. PMH: No past medical history on file. Allergies: Bee venom Medications: Current Outpatient Medications Medication Sig Dispense Refill amLODIPine (NORVASC) 10 MG tablet Take 10 mg by mouth daily. ciprofloxacin (CIPRO) 500 MG tablet Take 1 tablet (500 mg) by mouth 2 times daily for 10 days. 20 tablet 0 EPINEPHrine (ANY BX GENERIC EQUIV) 0.3 MG/0.3ML injection 2-pack 0.3 MG NEEDED FOR MAJOR ALLERGIC REACTION INTRAMUSCULARLY for 1 levocetirizine (XYZAL) 5 MG tablet lisinopril-hydrochlorothiazide (PRINZIDE,ZESTORETIC) 20-12.5 MG per tablet Take 1 tablet by mouth daily 30 tablet omeprazole (PRILOSEC) [address] capsule take 1 capsule by mouth every day before a meal sertraline (ZOLOFT) 50 MG tablet Take 100 mg by mouth daily. simvastatin (ZOCOR) 5 MG tablet Take by mouth. tadalafil (CIALIS) 10 MG tablet TAKE 1-2 TABLETS BY MOUTH NEEDED for 15 venlafaxine (EFFEXOR XR) 75 MG 24 hr capsule Take 75 mg by mouth daily. zafirlukast (ACCOLATE) 20 MG tablet Take 20 mg by mouth every 12 hours. Acetaminophen (TYLENOL PO) (Patient not taking: Reported on 08/02/2024) oxyCODONE-acetaminophen (PERCOCET) 5-325 MG per tablet Take 1 tablet by mouth every 4 hours as needed for pain (Patient not taking: Reported on 08/02/2024) 30 tablet 0 predniSONE (DELTASONE) 20 MG tablet Take 20 mg by mouth 2 times daily. (Patient not taking: Reported on 08/02/2024) Social History: Social History Tobacco Use Smoking status: Never Smokeless tobacco: Never Substance Use Topics Alcohol use: Yes Comment: 2 beers per week ROS: Review of systems negative except as stated above. OBJECTIVE: BP (!) 130/90 Pulse (!) 122 Temp (!) 102.3 ??F (39.1 ??C) (Tympanic) Wt 81.6 kg (180 lb) SpO2 97% BMI 29.05 kg/m?? GENERAL APPEARANCE: healthy, alert and no distress RESP: lungs clear to auscultation - no rales, rhonchi or wheezes CV: regular rates and rhythm, normal S1 S2, no murmur noted ABDOMEN: soft, nontender, no HSM or masses and bowel sounds normal BACK: No CVA tenderness SKIN: no suspicious lesions or rashes Labs: Results for orders placed or performed in visit on 08/02/24 UA Macroscopic with reflex to Microscopic and Culture - Lab Collect Status: Abnormal Specimen: Urine, Midstream Result Value Ref Range Color Urine Yellow Colorless, Straw, Light Yellow, Yellow Appearance Urine Clear Clear Glucose Urine Negative Negative mg/dL Bilirubin Urine Negative Negative Ketones Urine Negative Negative mg/dL Specific [place] Urine 1.020 1.003 - 1.035 Blood Urine Moderate (A) Negative pH Urine 6.5 5.0 - 7.0 Protein Albumin Urine >=300 (A) Negative mg/dL Urobilinogen Urine 0.2 0.2, 1.0 E.U./dL Nitrite Urine Positive (A) Negative Leukocyte Esterase Urine Small (A) Negative Urine Microscopic Exam Status: Abnormal Result Value Ref Range Bacteria Urine Moderate (A) None Seen /HPF RBC Urine 0-2 0-2 /HPF /HPF WBC Urine 50-100 (A) 0-5 /HPF /HPF ASSESSMENT: ICD-10-CM 1. Acute pyelonephritis N10 UA Macroscopic with reflex to Microscopic and Culture - Lab Collect UA Macroscopic with reflex to Microscopic and Culture - Lab Collect Urine Microscopic Exam Urine Culture cefTRIAXone (ROCEPHIN) in lidocaine 1% (PF) for IM administration only 1,000 mg ciprofloxacin (CIPRO) 500 MG tablet PLAN: 45 minutes spent by me on the date of the encounter doing chart review, review of outside records, review of test results, interpretation of tests, patient visit, documentation, and discussion with other provider(s) Patient Instructions Patient was educated on the natural course of condition. Take medication as directed. Side effects discussed. Conservative measures include drinking fluids (water). See your primary care provider if symptoms do not improve in 1 to 2 days. Seek emergency care immediately if your symptoms worsen or fever does not improve in 24 hours. Patient verbalized understanding and is agreeable to plan. The patient was discharged ambulatory and in stable condition. Virginia Ramos PA-C on 08/02/2024 at 1:07 PM BEATER documented in this encounter Plan of Treatment Not on file documented as of this encounter Procedures Procedure Name Priority Date/Time Associated Diagnosis Comments UA MACROSCOPIC WITH REFLEX TO MICRO AND CULTURE Routine 08/02/2024 11:10 AM GOLD BEATER Acute pyelonephritis URINE MICROSCOPIC EXAM Routine 08/02/2024 11:10 AM GOLD BEATER Acute pyelonephritis URINE CULTURE Routine 08/02/2024 11:10 AM GOLD BEATER Acute pyelonephritis documented in this encounter Results * (ABNORMAL) Urine Culture (08/02/2024 11:10 AM GOLD BEATER) Culture >100,000 CFU/mL Escherichia coli(A) 08/03/2024 11:24 PM GOLD BEATER [facility] Urine MID-STREAM URINE SPECIMEN / Unknown Non-blood Collection / Unknown 08/02/2024 11:10 AM GOLD BEATER 08/02/2024 11:14 AM GOLD BEATER Narrative Organism Antibiotic Method Susceptibility Escherichia coli [...] Escherichia coli Trimethoprim/Sulfamethoxazole DEYSI <=1/19 ug/mL: Susceptible [facility] LAB - MICRO GENERAL ORDERABLES Final Result [facility] Inf. Diseases Diag. Lab [address] [facility], [address] [place] [address] * (ABNORMAL) Urine Microscopic Exam (08/02/2024 11:10 AM GOLD BEATER) Bacteria Urine Moderate(A ) None Seen /HPF DEYSI 08/02/2024 11:16 AM GOLD BEATER [facility] RBC Urine 0-2 0-2 /HPF /HPF DEYSI 08/02/2024 11:16 AM GOLD BEATER [facility] WBC Urine 50-100(A) 0-5 /HPF /HPF DEYSI 08/02/2024 11:16 AM GOLD BEATER [facility] Urine MID-STREAM URINE SPECIMEN / Unknown Non-blood Collection / Unknown 08/02/2024 11:10 AM GOLD BEATER 08/02/2024 11:10 AM GOLD BEATER [employer] PA-C LAB - URINE ORDERABLES Final R esult [facility] [id number] [facility] (no room number, 1st floor of clinic) [place] [address], [facility] * (ABNORMAL) UA Macroscopic with reflex to Microscopic and Culture - Lab Collect (08/02/2024 11:10 AMCST) Color Urine Yellow Colorless, Straw, Light Yellow, Yellow 08/02/2024 11:14 AM GOLD BEATER LABORATORY Appearance Urine Clear Clear 08/02/20 24 11:14 AM GOLD BEATER [facility] Glucose Urine Negative Negative mg/dL 08/02/2024 11:14 AM GOLD BEATER [facility] Bilirubin Urine Negative Negative 11:14 AM GOLD BEATER LABORATORY Ketones Urine Negative Negative mg/dL 08/02/2024 11:14 AM GOLD BEATER LABORATORY Specific [place] Urine 1.020 1.003 - 1.035 08/02/2024 11:14 AM GOLD BEATER LABORATORY Blood Urine Moderate(A) Negative 08/02/2024 11:14 AM GOLD BEATER LABORATORY pH Urine 6.5 5.0 - 7.0 08/02/2024 11:14 AM GOLD BEATER LABORATORY Protein Albumin Urine >=300(A) Negative mg/dL 08/02/2024 11:14 AM GOLD BEATER LABORATORY Urobilinogen Urine 0.2 0.2, 1.0 E.U./dL 08/02/2024 11:14 AM GOLD BEATER LABORATORY Nitrite Urine Positive(A) Negative 08/02/2024 11:14 AM GOLD BEATER LABORATORY Leukocyte Esterase Urine Small(A) Negative 08/02/2024 11:14 AM GOLD BEATER LABORATORY Urine MID-STREAM URINE SPECIMEN / Unknown Non-blood Collection / Unknown 08/02/2024 11:10 AM GOLD BEATER 08/02/2024 11:10 AM GOLD BEATER us Virginia Ramos PA-C LAB - URINE ORDERABLES Final R esult [facility] [address] [facility] (no room number, 1st floor of clinic) [place] [address] documented in this encounter Visit Diagnoses Diagnosis Acute pyelonephritis- Primary Acute pyelonephritis without lesion of renal medullary necrosis documented in this encounter Administered Medications Inactive Administered Medications - up to 3 most recent administrations Medication Order MAR Action Action Date Dose Rate Site cefTRIAXone (ROCEPHIN) in lidocaine 1% (PF) for IM administration only 1,000 mg Routine, 1,000 mg, Intramuscular, ONCE, On 08/02/24 at 1230, For 1 dose, Reconstitute 500 mg vial with 1 ml of 1% Lidocaine for final concentration of 350 mg/mL. For IM administration only., Indications: Urinary Tract InfectionIndications:Uri nary Tract Infection $Given 08/02/2024 12:39 PM GOLD BEATER 1,000 mg Right Ventrogluteal documented in this encounter Care Teams Repair Department Manager Relationship Specialty Start Date End Date Juan Antonio Pittman MD PCP - General Family Practice 07/25/14 Kalia Mckinnon MD Urology 08/29/16 Johnson King MD [address] [place] [address] [address] [place], [place] [id number] Urology 08/29/16 Jewels Guy, [place] Registered Nurse Urology 09/27/16 Juan Antonio Pittman MD Referring Physician Family Practice 09/27/16 documented as of this encounter
--- OUTSIDE RECORDS SUMMARY | 2024-08-25 09:49 | XMS_ITS | Clinical Summary ---
Author Organization [employer] [facility] Address [place], [place] [address] Care Team Providers Care Patented Hogshead Assembler Name Role Phone Dimitri Friedman MD Primary Care Provider [phone] Allergies Active Allergy Reactions Criticality Noted Date Comments Hymenoptera Allergenic Extract Anaphylaxis 03/25 Medications lisinopril-hydro chlorothiazide 20-12.5 mg tablet (PRINIZIDE) Take by mouth once daily. Take one-half tablet daily Active Active Problems No known active problems Encounters Date Type Department Care Team Description 08/11/2024 Transcribe Orders [address] [place] [address] Self, Referral from Last 3 Months Family History Medical History Relation Name Comments Diabetes Father Relation Name Status Comments Father Mother (Age 69) CAD Social History Tobacco Use Types Packs/Day Years Used Date Smoking Tobacco: Never Smokeless Tobacco: Never Alcohol Use Standard Drinks/Week Comments Yes 0 (1 standard drink = 0.6 oz pur e alcohol) Sex and Gender Information Value Date Recorded Sex Assigned at Not on file Legal Sex Male 5:18 AM DIRECT SERVICE PROVIDER Gender Identity Not on file Sexual Orientation Not on file Obstetrics History Last Filed Vital Signs Vital Sign Reading Time Taken Comments Blood Pressure 120/77 02/18/2016 6:00 PM CDT Pulse 61 02/18/2016 6:00 PM CDT Temperature 36.7 C (98 F) 02/18/2016 2:56 PM CDT Respiratory Rate 16 02/18/2016 2:56 PM CDT Oxygen Saturation 99% 02/18/2016 6:00 PM CDT Inhaled Oxygen Concentration - - Weight 72.6 kg (160 lb) 02/18/2016 2:56 PM CDT Height 167.6 cm (5' 6) 09/05/2014 10:47 AM DIRECT SERVICE PROVIDER Body Mass Index 25.82 09/05/2014 10:47 AM DIRECT SERVICE PROVIDER Plan of Treatment Upcoming Encounters Date Type Department Care Team (Late st Contact Info) Description 09/03/2024 8:30 AM DIRECT SERVICE PROVIDER Ancillary Procedure [facility] [address] [facility] [address] [place] [address] Health Maintenance Due Date Last Done Comments Tdap 1977 Depression screening for age 12+ 1978 HIV for age 15-65 1981 BMI (ht and wt on same day) for age 18+ 1984 Hepatitis C screening for age 18-79 1984 Tetanus booster 1986 Colonoscopy through age 75 11/17/2011 Lipids for age 45-75 11/17/2011 Pneumococcal series for age 50+ (1 of 1 - PCV) 017 Zoster (shingles) series for age 50+ (1 of 2) 11/17/19 17 COVID-19 vaccine series (2023- season) 4 Influenza for age 50-64 04/25/2024 Insurance [employer] [id number] [employer] Care Teams Patented Hogshead Assembler Relationship Specialty Start Date End Date Dimitri Friedman MD [address] [place] [address] PCP - General Family Practice 08/11/24
--- OUTSIDE RECORDS SUMMARY | 2024-08-25 09:50 | XMS_ITS | Referral Summary ---
Author Organization [facility] Address [address] [place] [address] Care Team Providers Care Manager It Training Name Role Phone Unavailable Primary Care Provider Unavailabl e Source Comments Patient records contain information from all sites at [facility]. For routine questions regarding patient records, call [phone] during business hours, M-F 8:00 AM - 5:00 PM Central Time. Record requests for emergency care only can be directed to [phone] at any time.[facility] Allergies Active Allergy Reactions Criticality Noted Date [...] Years Used Date Smoking Tobacco: Never Assessed [facility] Utilities Answer Date Recorded In the past 12 months has th e [employer] gas, oil, or water [employer] threatened to shut off services in your [...] your living situation today? 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
--- OUTSIDE RECORDS SUMMARY | 2024-08-25 09:50 | XMS_ITS ---
Author Organization [facility] Address [address] [place] [address] Care Team Providers Care Assembly Machine Tool Setter Name Role Phone Unavailable Unavailable Unavailable Surgery Details Not on file Complications Check Surgery Details section. Procedure Estimated Blood Loss Check Surgery Details section. Procedure Findings Check Surgery Details section. Procedure Specimens Taken Check Surgery Details section.
[2024-08-25] MEDS: SODIUM CHLORIDE 0.9 % (FLUSH) 10 ML SYRINGE IVF (10:21)
[2024-08-25] MEDS: ERTAPENEM 1 GM in 0.9 % SODIUM CHLORIDE Mini-bag 100 ML IVPB (10:21)
[2024-08-25 10:32] VITALS: BP 137/87; PULSE 66; RESP 18; TEMP 36.8; O2SAT 95
--- NOTE | 2024-08-25 10:47 | CRLHL7_ITS ---
For Patients: As a result of the Cures Act, medical imaging exams and procedure reports are released immediately into your electronic medical record. You may view this report before your referring provider. If you have questions, please contact your health care provider. INDICATION: Assess line placement. TECHNIQUE: One view. IMPRESSION: Left PICC line tip cavoatrial junction. No acute cardiopulmonary disease. Dictated by Min Mahmood MD @ 08/25/2024 11:44:04 AM (Electronically Signed)
--- NOTE | 2024-08-25 12:06 | PC.NURSE ---
Infusion in IV of Right wrist complete while PICC placement by PICC STAT staff. IV DC'd after antibiotic infusion. Pt will return to [facility] 08/26/24 to continue infusions with use of PICC in Left extremity.
--- OUTSIDE RECORDS SUMMARY | 2024-08-26 07:19 | XMS_ITS | Clinical Summary ---
Author Organization [facility] Address [place], [place] [address] Care Team Providers Care Workers Compensation Specialist Name Role Phone Dimitri Friedman MD Primary Care Provider [phone] Allergies Active Allergy Reactions Criticality Noted Date Comments Hymenoptera Allergenic Extract Anaphylaxis 03/25 Medications lisinopril-hydro chlorothiazide 20-12.5 mg tablet (PRINIZIDE) Take by mouth once daily. Take one-half tablet daily Active Active Problems No known active problems Encounters Date Type Department Care Team Description 08/11/2024 Transcribe Orders [address] [place] [address] Self, Referral from Last 3 Months Family [...] on file Legal Sex Male 5:18 AM ASSISTANT READING TEACHER Gender Identity Not on file Sexual Orientation [...] 167.6 cm (5' 6) 09/05/2014 10:47 AM ASSISTANT READING TEACHER Body Mass Index 25.82 09/05/2014 10:47 AM ASSISTANT READING TEACHER Plan of Treatment Upcoming Encounters Date Type Department Care Team (Late st Contact Info) Description 09/03/2024 8:30 AM ASSISTANT READING TEACHER Ancillary Procedure [facility] [address] [facility] [address] [place] [address] Health Maintenance Due Date Last Done Comments [...] for age 50-64 04/25/2024 Insurance [employer] [id number] [employer] Care Teams Workers Compensation Specialist Relationship Specialty Start Date End Date Dimitri Friedman MD [address] [place] [address] PCP - General Family Practice 08/11/24
--- OUTSIDE RECORDS SUMMARY | 2024-08-26 07:20 | XMS_ITS | Encounter Summary ---
Author Organization [facility] Address [address] [place] [address] Care Team Providers Care Soft Hat Binder Name Role Phone Juan Antonio Pittman MD Primary Care Provider [phone] Kalia Mckinnon MD Unavailable [phone] Johnson King MD Unavailable [phone] Jewels Guy RN Unavailable [phone] Juan Antonio Pittman MD Unavailable [phone] Encounter Details Date Type Department Care Team [...] on file Legal Sex Male 3:02 AM MARGIN ANALYST Gender Identity Not on file Sexual Orientation [...] on filedocumented in this encounter Care Teams Soft Hat Binder Relationship Specialty Start Date End Date Juan Antonio Pittman MD PCP - General Family Practice 07/25/14 Kalia Mckinnon MD Urology 08/29/16 Johnson King MD [address] [place] [address] Urology 08/29/16 Jewels Guy, RN Registered Nurse Urology 09/27/16 Juan Antonio Pittman MD Referring Physician Family Practice 09/27/16 documented as of this encounter
--- OUTSIDE RECORDS SUMMARY | 2024-08-26 07:20 | XMS_ITS | Clinical Summary ---
Author Organization [place] Address [facility] [place] [address] Care Team Providers Care Advanced Solutions Architect Name Role Phone Juan Antonio Pittman MD Primary Care Provider [phone] Kalia Mckinnon MD Unavailable [phone] Johsnon King MD Unavailable [phone] Jewels Guy RN Unavailable [phone] Juan Antonio Pittman MD Unavailable [phone] Allergies Active Allergy Reactions Criticality Noted Date [...] Type Department Care Team Description 08/04/2024 Telephone [facility] [address] [place] [address] Janae Eubanks MD 08/02/2024 12:40 PM CREAM DUMPER Office Visit [facility] [address] [place] [address] Virginia Ramos PA-C Acute pyelonephritis (Primary Dx) 08/02/2024 Telephone [facility] [address] [address] Virginia Ramos PA-C Medication Question [...] on file Legal Sex Male 3:02 AM CREAM DUMPER Gender Identity Not on file Sexual Orientation Not on file 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 Not on file Not on file Last Filed Vital Signs Vital Sign Reading Time Taken Comments Blood Pressure 130/90 08/02/2024 12:02 PM CREAM DUMPER Pulse 122 08/02/2024 12:02 PM CREAM DUMPER Temperature 39.1 C (102.3 F) 08/02/2024 12:02 PM CREAM DUMPER Respiratory Rate 16 10/11/2016 5:20 PM CREAM DUMPER Oxygen Saturation 97% 08/02/2024 12:02 PM CREAM DUMPER Inhaled Oxygen Concentration - - Weight 81.6 kg (180 lb) 08/02/2024 12:02 PM CREAM DUMPER Height 167.6 cm (5' 6) 10/24/2016 8:28 AM CREAM DUMPER Body Mass Index 29.05 10/24/2016 8:28 AM CREAM DUMPER Plan of Treatment Health Maintenance Due Date [...] Comments URINE CULTURE Routine 08/02/2024 11:10 AM CREAM DUMPER Acute pyelonephritis URINE MICROSCOPIC EXAM Routine 08/02/2024 11:10 AM CREAM DUMPER Acute pyelonephritis UA MACROSCOPIC WITH REFLEX TO MICRO AND CULTURE Routine 08/02/2024 11:10 AM CREAM DUMPER Acute pyelonephritis LIPID REFLEX TO DIRECT LDL PANEL Routine 09/09/2022 9:33 AM CREAM DUMPER Type 2 diabetes mellitus with hyperglycemia (H) Hyperlipidemia, unspecified COMPREHENSIVE METABOLIC PANEL Routine 09/09/2022 9:33 AM CREAM DUMPER Type 2 diabetes mellitus with hyperglycemia (H) Hyperlipidemia, unspecified from Last 3 Months or Most Recently Relevant to Health Maintenance Results * (ABNORMAL) UA Macroscopic with reflex to Microscopic and Culture - Lab Collect (08/02/2024 11:10 AMC) Color Urine Yellow Colorless, Straw, Light Yellow, Yellow 08/02/2024 11:14 AM CREAM DUMPER LABORATORY Appearance Urine Clear Clear 08/02/20 24 11:14 AM [facility] Glucose Urine Negative Negative mg/dL 08/02/2024 11:14 AM [facility] Bilirubin Urine Negative Negative 11:14 AM [facility] Ketones Urine Negative Negative mg/dL 08/02/2024 11:14 AM [facility] Specific [place] Urine 1.020 1.003 - 1.035 08/02/2024 11:14 AM [facility] Blood Urine Moderate(A) Negative 08/02/2024 11:14 AM [facility] pH Urine 6.5 5.0 - 7.0 08/02/2024 11:14 AM [facility] Protein Albumin Urine >=300(A) Negative mg/dL 08/02/2024 11:14 AM [facility] Urobilinogen Urine 0.2 0.2, 1.0 E.U./dL 08/02/2024 11:14 AM [facility] Nitrite Urine Positive(A) Negative 08/02/2024 11:14 AM [facility] Leukocyte Esterase Urine Small(A) Negative 08/02/2024 11:14 AM [facility] Urine MID-STREAM URINE SPECIMEN / Unknown Non-blood Collection / Unknown 08/02/2024 11:10 AM CREAM DUMPER 08/02/2024 11:10 AM CREAM DUMPER us Virginia Ramos PA-C LAB - URINE ORDERABLES Final R esult LABORATORY [facility] [address] [facility] (no room number, 1st floor of clinic) [place] [address], [facility] * (ABNORMAL) Urine Microscopic Exam (08/02/2024 11:10 AM CREAM DUMPER) Bacteria Urine Moderate(A ) None Seen /HPF DEYSI 08/02/2024 11:16 AM CREAM DUMPER LV LABORATORY RBC Urine 0-2 0-2 /HPF /HPF DEYSI 08/02/2024 11:16 AM CREAM DUMPER LV LABORATORY WBC Urine 50-100(A) 0-5 /HPF /HPF DEYSI 08/02/2024 11:16 AM CREAM DUMPER LV LABORATORY Urine MID-STREAM URINE SPECIMEN / Unknown Non-blood Collection / Unknown 08/02/2024 11:10 AM CREAM DUMPER 08/02/2024 11:10 AM CREAM DUMPER Virginia Ramos PA-C LAB - URINE ORDERABLES Final R esult LABORATORY [facility] [id number] [place] [address] (no room number, 1st floor of clinic) [place] [address] * (ABNORMAL) Urine Culture (08/02/2024 11:10 AM CREAM DUMPER) Culture >100,000 CFU/mL Escherichia coli(A) 08/03/2024 11:24 PM CREAM DUMPER [facility] LABORATORY Urine MID-STREAM URINE SPECIMEN / Unknown Non-blood Collection / Unknown 08/02/2024 11:10 AM CREAM DUMPER 08/02/2024 11:14 AM CREAM DUMPER Narrative Organism Antibiotic Method Susceptibility Escherichia coli [...] GENERAL ORDERABLES Final Result [facility] IDD LABORATORY [facility] Inf. Diseases Diag. Lab [address] [facility], [address] [place] [address] * (ABNORMAL) Lipid panel reflex to direct LDL (09/09/2022 9:33 AM CREAM DUMPER) Pathologist [facility] Cholesterol 192 <200 mg/dL 09/09/2022 4:34 PM CREAM DUMPER UU LABORATORY Triglycerides 165(H) <150 mg/dL 09/09/2022 4:34 PM CREAM DUMPER UU LABORATORY Direct Measure HDL 44 >=40 mg/dL 09/09/2022 4:34 PM CREAM DUMPER [facility] LAB[facility]ATORY LDL Cholesterol Calculated 115(H) <=100 mg/dL 09/09/2022 4:34 PM CREAM DUMPER [facility] LABORATORY Non HDL Cholesterol 148(H) <130 mg/dL 09/09/2022 4:34 PM CREAM DUMPER UU LABORATORY Blood BLOOD SPECIMEN / Unknown Client Draw / Unknown 09/09/2022 9:33 AM CREAM DUMPER 09/09/2022 2:14 PM CREAM DUMPER Narrative [facility]U LABORATORY - 09/09/2022 4:34 PM CREAM DUMPER Cholesterol Desirable: <200 mg/dL Triglycerides Normal: Less [...] - BLOOD ORDERABLES Final Result [facility]AT[facility] [place] [facility] Lab [address] [facility], [address] [place] [id number], [facility] [phone] * (ABNORMAL) Comprehensive metabolic panel (09/09/2022 9:33 AM CREAM DUMPER) Sodium 138 136 - 145 mmol/L 09/09/2022 4:34 PM CREAM DUMPER UU LABORATORY Potassium 4.2 3.4 - 5.3 mmol/L 09/09/2022 4:34 PM CREAM DUMPER UU LABORATORY Chloride 102 98 - 107 mmol/L 09/09/2022 4:34 PM CREAM DUMPER [facility] LABORATORY Carbon Dioxide (CO2) 21(L) 22 - 29 mmol/L 09/09/2022 4:34 PM CREAM DUMPER UU LABORATORY Anion Gap 15 7 - 15 mmol/L 09/09/2022 4:34 PM CREAM DUMPER [facility]U LABORATORY Urea Nitrogen 20.5(H) 6.0 - 20.0 mg/dL 09/09/2022 4:34 PM CREAM DUMPER UU LABORATORY Creatinine 0.97 0.67 - 1.17 mg/dL 09/09/2022 4:34 PM CREAM DUMPER UU LABORATORY Calcium 9.5 8.6 - 10.0 mg/dL 09/09/2022 4:34 PM CREAM DUMPER [facility]U LABORATORY Glucose 120(H) 70 - 99 mg/dL 09/09/2022 4:34 PM CREAM DUMPER UU LABORATORY Alkaline Phosphatase 66 40 - 129 U/L 09/09/2022 4:34 PM CREAM DUMPER UU LABORATORY AST 22 10 - 50 U/L 09/09/2022 4:34 PM CREAM DUMPER UU LABORATORY ALT 32 10 - 50 U/L 09/09/2022 4:34 PM CREAM DUMPER UU LABORATORY Protein Total 7.0 6.4 - 8.3 g/dL 09/09/2022 4:34 PM CREAM DUMPER UU LABORATORY Albumin 4.6 3.5 - 5.2 g/dL 09/09/2022 4:34 PM CREAM DUMPER UU LABORATORY Bilirubin Total 0.4 <=1.2 mg/dL 09/09/2022 4:34 PM CREAM DUMPER UU LABORATORY GFR Estimate >90 >60 mL/min/1.7 3m2 09/09/2022 4:34 PM CREAM DUMPER UU LABORATORY Comment:Effective July 262020 eGFRcr in adults is calculated using the 2020 CKD-EPI creatinine equation which includes age and gender (Computed Tomography Technician et al., NEJM, DOI: 10.1056/RJDIst7188667) Blood BLOOD SPECIMEN / Unknown Client Draw / Unknown 09/09/2022 9:33 AM CREAM DUMPER 09/09/2022 2:14 PM CREAM DUMPER us Kalpesh Mackey PA-C LAB - BLOOD ORDERABLES Final Result [facility] LABORATORY [facility] [place] [facility] [address] [facility], [address] [place] [address], [facility] [phone] from Last 3 Months or Most Recently Relevant to Health Maintenance Insurance [employer] [facility] Address: [facility] [address] [place] [address] Care Teams Advanced Solutions Architect Relationship Specialty Start Date End Date Juan Antonio Pittman MD PCP - General Family Practice 07/25/14 Kalia Mckinnon MD Urology 08/29/16 Johnson King MD [address] [place] [address] Urology 08/29/16 Jewels Guy, CHE[place] Registered Nurse Urology 09/27/16 Juan Antonio Pittman MD Referring Physician Family Practice 09/27/16
--- OUTSIDE RECORDS SUMMARY | 2024-08-26 07:20 | XMS_ITS | Encounter Summary ---
Author Organization [place] Address [address] [place] [address] Care Team Providers Care Costumed Character Entertainer Name Role Phone Juan Antonio Pittman MD Primary Care Provider [phone] Kalia Mckinnon MD Unavailable [phone] Johnson King MD Unavailable [phone] Jewels Guy RN Unavailable [phone] Juan Antonio Pittman MD Unavailable [phone] Encounter Details Date Type Department Care Team (Late st Contact Info) Description 08/04/2024 Telephone [facility] [place] [address] [place] [address] Janae Eubanks MD [address] [place] [address] Social History Tobacco Use Types Packs/Day [...] on file Legal Sex Male 3:02 AM RN NEONATAL ICU Gender Identity Not on file Sexual Orientation [...] up apt to follow up. Tawny Ryan Sink Maker NEONATAL ICU * Telephone Encounter - Janae Eubnaks MD - 08/04/2024 10:45 AM CST Please contact patient to find out if his urinary symptoms are improving. If they are not, we will switch to a different antibiotic. NEONATAL ICU documented in this encounter Plan of Treatment Not on file documented as of this encounter Visit Diagnoses Not on filedocumented in this encounter Care Teams Costumed Character Entertainer Relationship Specialty Start Date End Date Juan Antonio Pittman MD PCP - General Family Practice 07/25/14 Kalia Mckinnon MD Urology 08/29/16 Johnson King MD [address] [facility] [address] [place] [address] Urology 08/29/16 Jewels Guy, RN Registered Nurse Urology 09/27/16 Juan Antonio Pittman MD Referring Physician Family Practice 09/27/16 documented as of this encounter
--- OUTSIDE RECORDS SUMMARY | 2024-08-26 07:20 | XMS_ITS | Encounter Summary ---
Author Organization [place] Address [facility] [place] [address] Care Team Providers Care Domain Architect Name Role Phone Juan Antonio Pittman MD Primary Care Provider [phone] Kalia Mckinnon MD Unavailable [phone] Johnson King MD Unavailable [phone] Jewels Guy RN Unavailable [phone] Juan Antonio Pittman MD Unavailable [phone] Reason for Visit * Reason Onset Date Comments Medication Question 08/02/2024 Encounter Details Date Type Department Care Team (Late st Contact Info) Description 08/02/2024 Telephone [facility] [address] [address] Virginia Ramos PA-C [facility] [id number] [place] [address] Medication Question Social History Tobacco Use [...] on file 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 Patient is at his pharmacy, pharmacist is wondering if ok to take Cipro along with Simvastatin the patient is also currently taking. Will forward to Urgent Care pool. SHELL OPERATOR documented in this encounter Plan of Treatment Not on file documented as of this encounter Visit Diagnoses Not on filedocumented in this encounter Care Teams Domain Architect Relationship Specialty Start Date End Date Juan Antonio Pittman MD PCP - General Family Practice 07/25/14 Kalia Mckinnon MD Urology 08/29/16 Johnson King MD [address] [place] [address] Urology 08/29/16 Jewels Guy, RN Registered Nurse Urology 09/27/16 Juan Antonio Pittman MD Referring Physician Family Practice 09/27/16 documented as of this encounter
--- OUTSIDE RECORDS SUMMARY | 2024-08-26 07:20 | XMS_ITS | Referral Summary ---
Author Organization [place] Address [address] [place] [address] Care Team Providers Care Cinder Dump Crane Operator Name Role Phone Juan Antonio Pittman MD Primary Care Provider [phone] Kalia Mckinnon MD Unavailable [phone] Johnson King MD Unavailable [phone] Jewels Guy RN Unavailable [phone] Juan Antonio Pittman MD Unavailable [phone] Encounters Date Type Department Care Team Description 08/04/2024 Telephone [facility] Urgent [facility] [id number] [place] [address] Janae Eubanks MD 08/02/2024 Telephone [facility] Urgent [facility] [address] [phone] Virginia Ramos PA-C Medication Question 08/02/2024 Travel 08/02/2024 12:40 PM BILLBOARD POSTER Office Visit 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 Not on file Not on file Last Filed Vital Signs Vital Sign Reading Time Taken Comments Blood Pressure 130/90 08/02/2024 12:02 PM BILLBOARD POSTER Pulse 122 08/02/2024 12:02 PM BILLBOARD POSTER Temperature 39.1 C (102.3 F) 08/02/2024 12:02 PM BILLBOARD POSTER Respiratory Rate 16 10/11/2016 5:20 PM BILLBOARD POSTER Oxygen Saturation 97% 08/02/2024 12:02 PM BILLBOARD POSTER Inhaled Oxygen Concentration - - Weight 81.6 kg (180 lb) 08/02/2024 12:02 PM BILLBOARD POSTER Height 167.6 cm (5' 6) 10/24/2016 8:28 AM BILLBOARD POSTER Body Mass Index 29.05 10/24/2016 8:28 AM BILLBOARD POSTER Plan of Treatment Not on file Procedures Procedure Name Priority Date/Time Associated Diagnosis Comments URINE CULTURE Routine 08/02/2024 11:10 AM BILLBOARD POSTER Acute pyelonephritis URINE MICROSCOPIC EXAM Routine 08/02/2024 11:10 AM BILLBOARD POSTER Acute pyelonephritis UA MACROSCOPIC WITH REFLEX TO MICRO AND CULTURE Routine 08/02/2024 11:10 AM BILLBOARD POSTER Acute pyelonephritis LIPID REFLEX TO DIRECT LDL PANEL Routine 09/09/2022 9:33 AM BILLBOARD POSTER Type 2 diabetes mellitus with hyperglycemia (H) Hyperlipidemia, unspecified COMPREHENSIVE METABOLIC PANEL Routine 09/09/2022 9:33 AM BILLBOARD POSTER Type 2 diabetes mellitus with hyperglycemia (H) Hyperlipidemia, unspecified from Last 3 Months or Most Recently Relevant to Health Maintenance Results * (ABNORMAL) UA Macroscopic with reflex to Microscopic and Culture - Lab Collect (08/02/2024 11:10 AMCST) Color Urine Yellow Colorless, Straw, Light Yellow, Yellow 08/02/2024 11:14 AM BILLBOARD POSTER LABORATORY Appearance Urine Clear Clear 08/02/20 24 11:14 AM BILLBOARD POSTER LABORATORY Glucose Urine Negative Negative mg/dL 08/02/2024 11:14 AM BILLBOARD POSTER LABORATORY Bilirubin Urine Negative Negative 11:14 AM BILLBOARD POSTER LABORATORY Ketones Urine Negative Negative mg/dL 08/02/2024 11:14 AM BILLBOARD POSTER LABORATORY Specific [place] Urine 1.020 1.003 - 1.035 08/02/2024 11:14 AM BILLBOARD POSTER LABORATORY Blood Urine Moderate(A) Negative 08/02/2024 11:14 AM BILLBOARD POSTER LABORATORY pH Urine 6.5 5.0 - 7.0 08/02/2024 11:14 AM BILLBOARD POSTER LABORATORY Protein Albumin Urine >=300(A) Negative mg/dL 08/02/2024 11:14 AM BILLBOARD POSTER LABORATORY Urobilinogen Urine 0.2 0.2, 1.0 E.U./dL 08/02/2024 11:14 AM BILLBOARD POSTER LABORATORY Nitrite Urine Positive(A) Negative 08/02/2024 11:14 AM BILLBOARD POSTER LABORATORY Leukocyte Esterase Urine Small(A) Negative 08/02/2024 11:14 AM BILLBOARD POSTER LABORATORY Urine MID-STREAM URINE SPECIMEN / Unknown Non-blood Collection / Unknown 08/02/2024 11:10 AM BILLBOARD POSTER 08/02/2024 11:10 AM BILLBOARD POSTER us Virginia Ramos PA-C LAB - URINE ORDERABLES Final R esult LABORATORY [facility] [address] [facility] Lab (no room number, 1st floor of [facility]) [address] * (ABNORMAL) Urine Microscopic Exam (08/02/2024 11:10 AM BILLBOARD POSTER) Bacteria Urine Moderate(A ) None Seen /HPF DEYSI 08/02/2024 11:16 AM BILLBOARD POSTER LABORATORY RBC Urine 0-2 0-2 /HPF /HPF DEYSI 08/02/2024 11:16 AM BILLBOARD POSTER LV LABORATORY WBC Urine 50-100(A) 0-5 /HPF /HPF DEYSI 08/02/2024 11:16 AM BILLBOARD POSTER LABORATORY Urine MID-STREAM URINE SPECIMEN / Unknown Non-blood Collection / Unknown 08/02/2024 11:10 AM BILLBOARD POSTER 08/02/2024 11:10 AM BILLBOARD POSTER us Virginia Ramos PA-C LAB - URINE ORDERABLES Final R esult LABORATORY [facility] Lab [address] [facility] Lab (no room number, 1st floor of [facility]) [address] * (ABNORMAL) Urine Culture (08/02/2024 11:10 AM BILLBOARD POSTER) Culture >100,000 CFU/mL Escherichia coli(A) 08/03/2024 11:24 PM BILLBOARD POSTER UU IDD LABORATORY Urine MID-STREAM URINE SPECIMEN / Unknown Non-blood Collection / Unknown 08/02/2024 11:10 AM BILLBOARD POSTER 08/02/2024 11:14 AM BILLBOARD POSTER Narrative Organism Antibiotic Method Susceptibility Escherichia coli [...] GENERAL ORDERABLES Final Result [facility]U IDD LABORATORY [facility] Inf. Diseases Diag. Lab [address] [facility], [address] [place] [address] * (ABNORMAL) Lipid panel reflex to direct LDL (09/09/2022 9:33 AM BILLBOARD POSTER) [facility] Cholesterol 192 <200 mg/dL 09/09/2022 4:34 PM BILLBOARD POSTER UU LABORATORY Triglycerides 165(H) <150 mg/dL 09/09/2022 4:34 PM BILLBOARD POSTER UU LABORATORY Direct Measure HDL 44 >=40 mg/dL 09/09/2022 4:34 PM BILLBOARD POSTER UU LABORATORY LDL Cholesterol Calculated 115(H) <=100 mg/dL 09/09/2022 4:34 PM BILLBOARD POSTER UU LABORATORY Non HDL Cholesterol 148(H) <130 mg/dL 09/09/2022 4:34 PM BILLBOARD POSTER UU LABORATORY Blood BLOOD SPECIMEN / Unknown Client Draw / Unknown 09/09/2022 9:33 AM BILLBOARD POSTER 09/09/2022 2:14 PM BILLBOARD POSTER Narrative UU LABORATORY - 09/09/2022 4:34 PM BILLBOARD POSTER Cholesterol Desirable: <200 mg/dL Triglycerides Normal: Less [...] - BLOOD ORDERABLES Final Result [facility]U LABORATORY [facility] [place] [facility] Lab [address] [facility], [address] [place] [address], [facility] [phone] * (ABNORMAL) Comprehensive metabolic panel (09/09/2022 9:33 AM BILLBOARD POSTER) Sodium 138 136 - 145 mmol/L 09/09/2022 4:34 PM BILLBOARD POSTER UU LABORATORY Potassium 4.2 3.4 - 5.3 mmol/L 09/09/2022 4:34 PM BILLBOARD POSTER UU LABORATORY Chloride 102 98 - 107 mmol/L 09/09/2022 4:34 PM BILLBOARD POSTER UU LABORATORY Carbon Dioxide (CO2) 21(L) 22 - 29 mmol/L 09/09/2022 4:34 PM BILLBOARD POSTER UU LABORATORY Anion Gap 15 7 - 15 mmol/L 09/09/2022 4:34 PM BILLBOARD POSTER UU LABORATORY Urea Nitrogen 20.5(H) 6.0 - 20.0 mg/dL 09/09/2022 4:34 PM BILLBOARD POSTER UU LABORATORY Creatinine 0.97 0.67 - 1.17 mg/dL 09/09/2022 4:34 PM BILLBOARD POSTER UU LABORATORY Calcium 9.5 8.6 - 10.0 mg/dL 09/09/2022 4:34 PM BILLBOARD POSTER UU LABORATORY Glucose 120(H) 70 - 99 mg/dL 09/09/2022 4:34 PM BILLBOARD POSTER UU LABORATORY Alkaline Phosphatase 66 40 - 129 U/L 09/09/2022 4:34 PM BILLBOARD POSTER UU LABORATORY AST 22 10 - 50 U/L 09/09/2022 4:34 PM BILLBOARD POSTER UU LABORATORY ALT 32 10 - 50 U/L 09/09/2022 4:34 PM BILLBOARD POSTER UU LABORATORY Protein Total 7.0 6.4 - 8.3 g/dL 09/09/2022 4:34 PM BILLBOARD POSTER UU LABORATORY Albumin 4.6 3.5 - 5.2 g/dL 09/09/2022 4:34 PM BILLBOARD POSTER UU LABORATORY Bilirubin Total 0.4 <=1.2 mg/dL 09/09/2022 4:34 PM BILLBOARD POSTER UU LABORATORY GFR Estimate >90 >60 mL/min/1.7 3m2 09/09/2022 4:34 PM BILLBOARD POSTER UU LABORATORY Comment:Effective July 262020 eGFRcr in adults is calculated using the 2020 CKD-EPI creatinine equation which includes age and gender (Mabel et al., NEJM, DOI: 10.1056/FOFSba2159924) Blood BLOOD SPECIMEN / Unknown Client Draw / Unknown 09/09/2022 9:33 AM BILLBOARD POSTER 09/09/2022 2:14 PM BILLBOARD POSTER us Kalpesh Mackey PA-C LAB - BLOOD ORDERABLES Final Result [facility] LABORATORY [facility] [place] Core Lab [address] [facility], [address] [place] [address], [facility] [phone] from Last 3 Months or Most Recently Relevant to Health Maintenance Insurance [id number] Care Teams Cinder Dump Crane Operator Relationship Specialty Start Date End Date Juan Antonio Pittman MD PCP - General Family Practice 07/25/14 Kalia Mckinnon MD Urology 08/29/16 Johnson King MD [address] [place] [address] [address] [place] [address] Urology 08/29/16 Jewels Guy, RN Registered Nurse Urology 09/27/16 Juan Antonio Pittman MD Referring Physician Family Practice 09/27/16
--- OUTSIDE RECORDS SUMMARY | 2024-08-26 07:21 | XMS_ITS | Encounter Summary ---
Author Organization [facility] Address [address] [place] [address] Care Team Providers Care Tank Builder Helper Name Role Phone Juan Antonio Pittman MD Primary Care Provider [phone] Kalia Mckinnon MD Unavailable [phone] Johnson King MD Unavailable [phone] Jewels Guy RN Unavailable [phone] Juan Antonio Pittman MD Unavailable [phone] Reason for Referral * Clinically Administered Medications (Routine) - Closed Specialty Diagnoses / Procedures Referred By Contdoyle t Referred To Contact Urgent Care Diagnoses Urinary problem Procedures ZZC CEFTRIAXONE NA INJ /250MG Virginia Ramos PA-C [facility] [address] [place] [address] Phone: tel: fax: [facility] [id number] [place] [address] Phone: tel: fax: Referral ID Status Reason Start Date Expiration Date Visits Re quested Visits Authorized [id number] Closed 08/02/2024 08/02/2025 1 1 LIGHT OPERATOR Reason for Visit * Reason Comments Urgent [...] CEFTRIAXONE NA INJ /250MG Virginia Ramos PA-C [address] [address] Phone: tel: fax: [facility] [id number] [place] [address] Phone: tel: fax: Referral ID Status Reason Start Date Expiration Date Visits Re quested Visits Authorized [id number] Closed 08/02/2024 08/02/2025 1 1 Encounter Details Date Type Department Care Team (Latest Contact Info) Description 08/02/2024 12:40 PM SPOTLIGHT OPERATOR Office Visit [facility] [id number] [place] [address] Virginia Ramos PA-C [address] [address] Acute pyelonephritis (Primary Dx) Social History Tobacco [...] on file Legal Sex Male 3:02 AM SPOTLIGHT OPERATOR Gender Identity Not on file Sexual [...] Comments Blood Pressure 130/90 08/02/2024 12:02 PM SPOTLIGHT OPERATOR Pulse 122 08/02/2024 12:02 PM SPOTLIGHT OPERATOR Temperature 39.1 C (102.3 F) 08/02/2024 12:02 PM SPOTLIGHT OPERATOR Respiratory Rate - - Oxygen Saturation 97% 08/02/2024 12:02 PM SPOTLIGHT OPERATOR Inhaled Oxygen Concentration - - Weight 81.6 kg (180 lb) 08/02/2024 12:02 PM SPOTLIGHT OPERATOR Height - - Body Mass Index 29.05 10/24/2016 8:28 AM SPOTLIGHT OPERATOR documented in this encounter Patient Instructions * Patient Instructions* Virginia Ramos PA-C - 08/02/2024 12:40 PM SPOTLIGHT OPERATOR Patient was educated on the natural course of condition. Take medication as directed. Side effects discussed. Conservative measures include drinking fluids (water). See your primary care provider if symptoms do not improve in 1 to 2 days. Seek emergency care immediately if your symptoms worsen or fever does not improve in 24 hours. LIGHT OPERATOR LIGHT OPERATOR * Attachments The following attachments cannot be sent through Care Everywhere. * Pyelonephritis (Central African) documented in this encounter Progress Notes * [...] Negative Ketones Urine Negative Negative mg/dL Specific [place] Urine 1.020 1.003 - 1.035 Blood Urine [...] Ramos PA-C on 08/02/2024 at 1:07 PM LIGHT OPERATOR documented in this encounter Plan of Treatment Not on file documented as of this encounter Procedures Procedure Name Priority Date/Time Associated Diagnosis Comments UA MACROSCOPIC WITH REFLEX TO MICRO AND CULTURE Routine 08/02/2024 11:10 AM SPOTLIGHT OPERATOR Acute pyelonephritis URINE MICROSCOPIC EXAM Routine 08/02/2024 11:10 AM SPOTLIGHT OPERATOR Acute pyelonephritis URINE CULTURE Routine 08/02/2024 11:10 AM SPOTLIGHT OPERATOR Acute pyelonephritis documented in this encounter Results * (ABNORMAL) Urine Culture (08/02/2024 11:10 AM SPOTLIGHT OPERATOR) Culture >100,000 CFU/mL Escherichia coli(A) 08/03/2024 11:24 PM SPOTLIGHT OPERATOR [facility] Urine MID-STREAM URINE SPECIMEN / Unknown Non-blood Collection / Unknown 08/02/2024 11:10 AM SPOTLIGHT OPERATOR 08/02/2024 11:14 AM SPOTLIGHT OPERATOR Narrative Organism Antibiotic Method Susceptibility Escherichia coli [...] Escherichia coli Trimethoprim/Sulfamethoxazole DEYSI <=1/19 ug/mL: Susceptible txtr-[employer] LAB - MICRO GENERAL ORDERABLES Final Result [facility] Inf. Diseases Diag. Lab [address] [facility], [address] [place] [address] * (ABNORMAL) Urine Microscopic Exam (08/02/2024 11:10 AM SPOTLIGHT OPERATOR) Bacteria Urine Moderate(A ) None Seen /HPF DEYSI 08/02/2024 11:16 AM SPOTLIGHT OPERATOR [facility] RBC Urine 0-2 0-2 /HPF /HPF DEYSI 08/02/2024 11:16 AM SPOTLIGHT OPERATOR [facility] WBC Urine 50-100(A) 0-5 /HPF /HPF DEYSI 08/02/2024 11:16 AM SPOTLIGHT OPERATOR [facility] Urine MID-STREAM URINE SPECIMEN / Unknown Non-blood Collection / Unknown 08/02/2024 11:10 AM SPOTLIGHT OPERATOR 08/02/2024 11:10 AM SPOTLIGHT OPERATOR Bass Managerro PA-C LAB - URINE ORDERABLES Final R esult [facility]AT[facility] [address] [facility] (no room number, 1st floor of clinic) [place] [address], [place] * (ABNORMAL) UA Macroscopic with reflex to Microscopic and Culture - Lab Collect (08/02/2024 11:10 AMCST) Color Urine Yellow Colorless, Straw, Light Yellow, Yellow 08/02/2024 11:14 AM SPOTLIGHT OPERATOR LABORATORY Appearance Urine Clear Clear 08/02/20 24 11:14 AM SPOTLIGHT OPERATOR [facility] Glucose Urine Negative Negative mg/dL 08/02/2024 11:14 AM SPOTLIGHT OPERATOR [facility] Bilirubin Urine Negative Negative 11:14 AM SPOTLIGHT OPERATOR LABORATORY Ketones Urine Negative Negative mg/dL 08/02/2024 11:14 AM SPOTLIGHT OPERATOR LABORATORY Specific [place] Urine 1.020 1.003 - 1.035 08/02/2024 11:14 AM SPOTLIGHT OPERATOR LABORATORY Blood Urine Moderate(A) Negative 08/02/2024 11:14 AM SPOTLIGHT OPERATOR LABORATORY pH Urine 6.5 5.0 - 7.0 08/02/2024 11:14 AM SPOTLIGHT OPERATOR LABORATORY Protein Albumin Urine >=300(A) Negative mg/dL 08/02/2024 11:14 AM SPOTLIGHT OPERATOR LABORATORY Urobilinogen Urine 0.2 0.2, 1.0 E.U./dL 08/02/2024 11:14 AM SPOTLIGHT OPERATOR LABORATORY Nitrite Urine Positive(A) Negative 08/02/2024 11:14 AM SPOTLIGHT OPERATOR LABORATORY Leukocyte Esterase Urine Small(A) Negative 08/02/2024 11:14 AM SPOTLIGHT OPERATOR LABORATORY Urine MID-STREAM URINE SPECIMEN / Unknown Non-blood Collection / Unknown 08/02/2024 11:10 AM SPOTLIGHT OPERATOR 08/02/2024 11:10 AM SPOTLIGHT OPERATOR us Virginia Ramos PA-C LAB - URINE ORDERABLES Final R esult [facility] [address] [facility] (no room number, 1st floor of clinic) [place] [address] documented in this encounter Visit Diagnoses Diagnosis [...] nary Tract Infection $Given 08/02/2024 12:39 PM SPOTLIGHT OPERATOR 1,000 mg Right Ventrogluteal documented in this encounter Care Teams Tank Builder Helper Relationship Specialty Start Date End Date Juan Antonio Pittman MD PCP - General Family Practice 07/25/14 Kalia Mckinnon MD Urology 08/29/16 Johnson King MD [address] [place] [address] [address] [place], [place] [address] Urology 08/29/16 Jewels Guy, CHEPE Registered Nurse Urology 09/27/16 Juan Antonio Pittman MD Referring Physician Family Practice 09/27/16 documented as of this encounter
--- OUTSIDE RECORDS SUMMARY | 2024-08-26 07:21 | XMS_ITS | Referral Summary ---
Author Organization [facility] Address [address] [place] [address] Care Team Providers Care Forensic Document Examiner Name Role Phone Unavailable Primary Care Provider Unavailabl e Source Comments Patient records contain information from all sites at [facility]. For routine questions regarding patient records, call [phone] during business hours, M-F 8:00 AM - 5:00 PM Central Time. Record requests for emergency care only can be directed to [phone] at any time.[facility] Allergies Active Allergy Reactions Criticality Noted Date [...] Years Used Date Smoking Tobacco: Never Assessed [facility] Utilities Answer Date Recorded In the past 12 months has th e [place], gas, oil, or water [employer] threatened to shut off services in your [...] your living situation today? I have a [facility] place to live 11/30/2023 Sex and Gender Information Value Date Recorded Sex Assigned at Male 11/30/2023 3:02 PM CDT Legal Sex Male 8:06 AM RELEASE MANAGER Gender Identity Male 11/30/2023 3:02 PM CDT [...]
--- OUTSIDE RECORDS SUMMARY | 2024-08-26 07:21 | XMS_ITS ---
Author Organization [facility] Address [address] [place] [address] Care Team Providers Care Security Flex Officer Name Role Phone Unavailable Unavailable Unavailable Surgery Details Not on file Complications Check Surgery Details section. Procedure Estimated Blood Loss Check Surgery Details section. Procedure Findings Check Surgery Details section. Procedure Specimens Taken Check Surgery Details section.
--- OUTSIDE RECORDS SUMMARY | 2024-08-26 07:21 | XMS_ITS | Continuity of Care Document ---
Author Name [facility] User [email or web address] Address Unknown Organization Unknown Address Unknown Procedures FILTER APPLIED:Only known Procedures with Onset Date within the last 5 years Procedure Date Procedure Provider Additiona l Information Status C-REACTIVE PROTEIN (38076) Completed COMPLETE CBC W/AUTO DIFF WBC (32410) Completed ASSAY OF LIPASE (22237) Completed HEPATIC FUNCTION PANEL (59990) Completed METABOLIC PANEL TOTAL CA (45134) Completed ROUTINE VENIPUNCTURE (69999) Completed EMERGENCY DEPT VISIT LOW MDM (01330) Completed COMPREHEN METABOLIC PANEL (61583) Completed ASSAY OF PSA TOTAL (64499) Completed LIPID PANEL (37724) Comp leted ASSAY OF TROPONIN QUANT (51821) Completed THER/PROPH/DIAG INJ IV PUSH (02040) Completed THER/PROPH/DIAG INJ SC/IM (72143) Completed ROUTINE VENIPUNCTURE (02256) Completed MEASURE BLOOD OXYGEN LEVEL (79261) Completed ELECTROCARDIOGRAM TRACING (36771) Completed TX/PRO/DX INJ NEW DRUG ADDON (50359) Completed EMERGENCY DEPT VISIT MOD MDM (65333) Completed Encounters FILTER APPLIED:Only known Encounters with Admission Date within the last 5 years Encounter Location Admission Discharge Billing Code Pool Hall Inspector Lizbeth bryan Emergency [facility]
--- OUTSIDE RECORDS SUMMARY | 2024-08-26 07:21 | XMS_ITS | Clinical Summary ---
Author Organization [facility] Address [address] [place] [address] Care Team Providers Care Quarry Plug And Feather Driller Name Role Phone Unavailable Primary Care Provider Unavailabl e Source Comments Patient records contain information from all sites at [facility]. For routine questions regarding patient records, call [phone] during business hours, M-F 8:00 AM - 5:00 PM Central Time. Record requests for emergency care only can be directed to [phone] at any time.[facility] Allergies Active Allergy Reactions Criticality Noted [...] Date Smoking Tobacco: Never Assessed [facility] Utilities Answer Date Recorded In the past 12 months has th e [place], gas, oil, or water [employer] threatened to shut off services in your [...] your living situation today? I have a [facility] place to live 11/30/2023 Sex and Gender Information Value Date Recorded Sex Assigned at Male 11/30/2023 3:02 PM CDT Legal Sex Male 8:06 AM MAGAZINE DESIGNER Gender Identity Male 11/30/2023 3:02 PM CDT [...] patient's age to complete this topic Insurance [facility]
[2024-08-26 11:22] VITALS: BP 146/91; PULSE 75; RESP 16; TEMP 36.3; O2SAT 98
[2024-08-26] MEDS: SODIUM CHLORIDE 0.9 % (FLUSH) 10 ML SYRINGE IVF ×2 (11:34→12:19)
[2024-08-26] MEDS: ERTAPENEM 1 GM in 0.9 % SODIUM CHLORIDE Mini-bag 100 ML IVPB (11:34)
--- OUTSIDE RECORDS SUMMARY | 2024-08-27 07:34 | XMS_ITS | Encounter Summary ---
Author Organization [facility] Address [address] [facility] [place] [address] Care Team Providers Care Pawn Broker Name Role Phone Juan Antonio Pittman MD Primary Care Provider [phone] Kalia Mckinnon MD Unavailable [phone] Johnson King MD Unavailable Jewels Guy RN Unavailable [phone] Juan Antonio Pittman MD Unavailable [phone] Encounter Details Date Type Department Care Team (Late st Contact Info) Description 08/04/2024 Telephone [facility] [place] [address] [place] [address] Janae Eubanks MD [address] [place] [address] Social History Tobacco Use Types Packs/Day [...] on file Legal Sex Male 3:02 AM MAINSPRING STRIP INSPECTOR Gender Identity Not on file Sexual Orientation [...] up apt to follow up. Tawny Ryan Lumber Tripper SPRING STRIP INSPECTOR * Telephone Encounter - Janae Eubanks MD - 08/04/2024 10:45 AM CST Please contact patient to find out if his urinary symptoms are improving. If they are not, we will switch to a different antibiotic. SPRING STRIP INSPECTOR documented in this encounter Plan of Treatment Not on file documented as of this encounter Visit Diagnoses Not on filedocumented in this encounter Care Teams Pawn Broker Relationship Specialty Start Date End Date Juan Antonio Pittman MD PCP - General Family Practice 07/25/14 Kalia Mckinnon MD Urology 08/29/16 Johnson King MD [address] [facility] [address] [place] [address] Urology 08/29/16 Jewels Guy, RN Registered Nurse Urology 09/27/16 Juan Antonio Pittman MD Referring Physician Family Practice 09/27/16 documented as of this encounter
--- OUTSIDE RECORDS SUMMARY | 2024-08-27 07:34 | XMS_ITS | Clinical Summary ---
Author Organization [facility] Address [facility] [place] [address] Care Team Providers Care Lock Plater Name Role Phone Juan Antonio Pittman MD Primary Care Provider [phone] Kalia Mckinnon MD Unavailable [phone] Johnson King MD Unavailable Jewels Guy RN Unavailable [phone] Juan Antonio Pittman MD Unavailable [phone] Allergies Active Allergy Reactions Criticality Noted Date [...] Type Department Care Team Description 08/04/2024 Telephone [facility] [address] [place] [address] Janae Eubanks MD 08/02/2024 12:40 PM DEHYDROGENATION CONVERTER HELPER Office Visit [facility] [address] [place] [address] Virginia Ramos PA-C Acute pyelonephritis (Primary Dx) 08/02/2024 Telephone [facility] [address] [address] Virginia Ramos PA-C Medication Question [...] on file Legal Sex Male 3:02 AM DEHYDROGENATION CONVERTER HELPER Gender Identity Not on file Sexual Orientation Not on file 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 Not on file Not on file Last Filed Vital Signs Vital Sign Reading Time Taken Comments Blood Pressure 130/90 08/02/2024 12:02 PM DEHYDROGENATION CONVERTER HELPER Pulse 122 08/02/2024 12:02 PM DEHYDROGENATION CONVERTER HELPER Temperature 39.1 C (102.3 F) 08/02/2024 12:02 PM DEHYDROGENATION CONVERTER HELPER Respiratory Rate 16 10/11/2016 5:20 PM DEHYDROGENATION CONVERTER HELPER Oxygen Saturation 97% 08/02/2024 12:02 PM DEHYDROGENATION CONVERTER HELPER Inhaled Oxygen Concentration - - Weight 81.6 kg (180 lb) 08/02/2024 12:02 PM DEHYDROGENATION CONVERTER HELPER Height 167.6 cm (5' 6) 10/24/2016 8:28 AM DEHYDROGENATION CONVERTER HELPER Body Mass Index 29.05 10/24/2016 8:28 AM DEHYDROGENATION CONVERTER HELPER Plan of Treatment Health Maintenance Due Date [...] Comments URINE CULTURE Routine 08/02/2024 11:10 AM DEHYDROGENATION CONVERTER HELPER Acute pyelonephritis URINE MICROSCOPIC EXAM Routine 08/02/2024 11:10 AM DEHYDROGENATION CONVERTER HELPER Acute pyelonephritis UA MACROSCOPIC WITH REFLEX TO MICRO AND CULTURE Routine 08/02/2024 11:10 AM DEHYDROGENATION CONVERTER HELPER Acute pyelonephritis LIPID REFLEX TO DIRECT LDL PANEL Routine 09/09/2022 9:33 AM DEHYDROGENATION CONVERTER HELPER Type 2 diabetes mellitus with hyperglycemia (H) Hyperlipidemia, unspecified COMPREHENSIVE METABOLIC PANEL Routine 09/09/2022 9:33 AM DEHYDROGENATION CONVERTER HELPER Type 2 diabetes mellitus with hyperglycemia (H) Hyperlipidemia, unspecified from Last 3 Months or Most Recently Relevant to Health Maintenance Results * (ABNORMAL) UA Macroscopic with reflex to Microscopic and Culture - Lab Collect (08/02/2024 11:10 AMC) Color Urine Yellow Colorless, Straw, Light Yellow, Yellow 08/02/2024 11:14 AM DEHYDROGENATION CONVERTER HELPER LABORATORY Appearance Urine Clear Clear 08/02/20 24 11:14 AM [facility] Glucose Urine Negative Negative mg/dL 08/02/2024 11:14 AM [facility] Bilirubin Urine Negative Negative 11:14 AM [facility] Ketones Urine Negative Negative mg/dL 08/02/2024 11:14 AM [facility] Specific [place] Urine 1.020 1.003 - 1.035 08/02/2024 11:14 AM [facility] Blood Urine Moderate(A) Negative 08/02/2024 11:14 AM [facility] pH Urine 6.5 5.0 - 7.0 08/02/2024 11:14 AM [facility] Protein Albumin Urine >=300(A) Negative mg/dL 08/02/2024 11:14 AM [facility] Urobilinogen Urine 0.2 0.2, 1.0 E.U./dL 08/02/2024 11:14 AM [facility] Nitrite Urine Positive(A) Negative 08/02/2024 11:14 AM [facility] Leukocyte Esterase Urine Small(A) Negative 08/02/2024 11:14 AM [facility] Urine MID-STREAM URINE SPECIMEN / Unknown Non-blood Collection / Unknown 08/02/2024 11:10 AM DEHYDROGENATION CONVERTER HELPER 08/02/2024 11:10 AM DEHYDROGENATION CONVERTER HELPER us Virginia Ramos PA-C LAB - URINE ORDERABLES Final R esult LABORATORY [facility] [address] [facility] (no room number, 1st floor of clinic) [place] [address], [facility] * (ABNORMAL) Urine Microscopic Exam (08/02/2024 11:10 AM DEHYDROGENATION CONVERTER HELPER) Bacteria Urine Moderate(A ) None Seen /HPF DEYSI 08/02/2024 11:16 AM DEHYDROGENATION CONVERTER HELPER [facility] RBC Urine 0-2 0-2 /HPF /HPF DEYSI 08/02/2024 11:16 AM DEHYDROGENATION CONVERTER HELPER [facility] WBC Urine 50-100(A) 0-5 /HPF /HPF DEYSI 08/02/2024 11:16 AM DEHYDROGENATION CONVERTER HELPER [facility] Urine MID-STREAM URINE SPECIMEN / Unknown Non-blood Collection / Unknown 08/02/2024 11:10 AM DEHYDROGENATION CONVERTER HELPER 08/02/2024 11:10 AM DEHYDROGENATION CONVERTER HELPER Virginia Ramos PA-C LAB - URINE ORDERABLES Final R esult LABORATORY [facility] [id number] [place] [address] (no room number, 1st floor of clinic) [place] [address] * (ABNORMAL) Urine Culture (08/02/2024 11:10 AM DEHYDROGENATION CONVERTER HELPER) Culture >100,000 CFU/mL Escherichia coli(A) 08/03/2024 11:24 PM DEHYDROGENATION CONVERTER HELPER [facility] Urine MID-STREAM URINE SPECIMEN / Unknown Non-blood Collection / Unknown 08/02/2024 11:10 AM DEHYDROGENATION CONVERTER HELPER 08/02/2024 11:14 AM DEHYDROGENATION CONVERTER HELPER Narrative Organism Antibiotic Method Susceptibility Escherichia coli [...] Final Result [facility] Inf. Diseases Diag. Lab [address] [facility], [address] [place] [address] * (ABNORMAL) Lipid panel reflex to direct LDL (09/09/2022 9:33 AM DEHYDROGENATION CONVERTER HELPER) Pathologist [facility] Cholesterol 192 <200 mg/dL 09/09/2022 4:34 PM DEHYDROGENATION CONVERTER HELPER [facility] Triglycerides 165(H) <150 mg/dL 09/09/2022 4:34 PM DEHYDROGENATION CONVERTER HELPER [facility] Direct Measure HDL 44 >=40 mg/dL 09/09/2022 4:34 PM DEHYDROGENATION CONVERTER HELPER [facility] LDL Cholesterol Calculated 115(H) <=100 mg/dL 09/09/2022 4:34 PM DEHYDROGENATION CONVERTER HELPER [facility] Non HDL Cholesterol 148(H) <130 mg/dL 09/09/2022 4:34 PM DEHYDROGENATION CONVERTER HELPER [facility] Blood BLOOD SPECIMEN / Unknown Client Draw / Unknown 09/09/2022 9:33 AM DEHYDROGENATION CONVERTER HELPER 09/09/2022 2:14 PM DEHYDROGENATION CONVERTER HELPER Narrative [facility] - 09/09/2022 4:34 PM DEHYDROGENATION CONVERTER HELPER Cholesterol Desirable: <200 mg/dL Triglycerides Normal: Less [...] ORDERABLES Final Result [facility] [place] [facility] [address] [facility], [address] [place] [id number], [facility] [phone] * (ABNORMAL) Comprehensive metabolic panel (09/09/2022 9:33 AM DEHYDROGENATION CONVERTER HELPER) Sodium 138 136 - 145 mmol/L 09/09/2022 4:34 PM DEHYDROGENATION CONVERTER HELPER [facility] Potassium 4.2 3.4 - 5.3 mmol/L 09/09/2022 4:34 PM DEHYDROGENATION CONVERTER HELPER [facility] Chloride 102 98 - 107 mmol/L 09/09/2022 4:34 PM DEHYDROGENATION CONVERTER HELPER [facility] Carbon Dioxide (CO2) 21(L) 22 - 29 mmol/L 09/09/2022 4:34 PM DEHYDROGENATION CONVERTER HELPER [facility] Anion Gap 15 7 - 15 mmol/L 09/09/2022 4:34 PM DEHYDROGENATION CONVERTER HELPER [facility] Urea Nitrogen 20.5(H) 6.0 - 20.0 mg/dL 09/09/2022 4:34 PM DEHYDROGENATION CONVERTER HELPER [facility] Creatinine 0.97 0.67 - 1.17 mg/dL 09/09/2022 4:34 PM DEHYDROGENATION CONVERTER HELPER [facility] Calcium 9.5 8.6 - 10.0 mg/dL 09/09/2022 4:34 PM DEHYDROGENATION CONVERTER HELPER [facility] Glucose 120(H) 70 - 99 mg/dL 09/09/2022 4:34 PM DEHYDROGENATION CONVERTER HELPER [facility] Alkaline Phosphatase 66 40 - 129 U/L 09/09/2022 4:34 PM DEHYDROGENATION CONVERTER HELPER [facility] AST 22 10 - 50 U/L 09/09/2022 4:34 PM DEHYDROGENATION CONVERTER HELPER [facility] ALT 32 10 - 50 U/L 09/09/2022 4:34 PM DEHYDROGENATION CONVERTER HELPER [facility] Protein Total 7.0 6.4 - 8.3 g/dL 09/09/2022 4:34 PM DEHYDROGENATION CONVERTER HELPER [facility] Albumin 4.6 3.5 - 5.2 g/dL 09/09/2022 4:34 PM DEHYDROGENATION CONVERTER HELPER [facility] Bilirubin Total 0.4 <=1.2 mg/dL 09/09/2022 4:34 PM DEHYDROGENATION CONVERTER HELPER [facility] GFR Estimate >90 >60 mL/min/1.7 3m2 09/09/2022 4:34 PM DEHYDROGENATION CONVERTER HELPER [facility] Comment:Effective July 262020 eGFRcr in adults is calculated using the 2020 CKD-EPI creatinine equation which includes age and gender (Digital Coordinator et al., NEJM, DOI: 10.1056/XPRTdg2548170) Blood BLOOD SPECIMEN / Unknown Client Draw / Unknown 09/09/2022 9:33 AM DEHYDROGENATION CONVERTER HELPER 09/09/2022 2:14 PM DEHYDROGENATION CONVERTER HELPER us Kalpesh Mackey PA-C LAB - BLOOD ORDERABLES Final Result [facility] [place] [facility] [address] [facility] [place] [address], [facility] [phone] from Last 3 Months or Most Recently Relevant to Health Maintenance Insurance [employer] [facility] Address: [facility] [address] [place] [address] Care Teams Lock Plater Relationship Specialty Start Date End Date Juan Antonio Pittman MD PCP - General Family Practice 07/25/14 Kalia Mckinnon MD Urology 08/29/16 Johnson King MD [address] [place] [address] Urology 08/29/16 Jewels Guy, CHEPE Registered Nurse Urology 09/27/16 Juan Antonio Pittman MD Referring Physician Family Practice 09/27/16
--- OUTSIDE RECORDS SUMMARY | 2024-08-27 07:34 | XMS_ITS | Referral Summary ---
Author Organization [facility] Address [address] [place] [address] Care Team Providers Care Spa Technician Name Role Phone Juan Antonio Pittman MD Primary Care Provider [phone] Kalia Mckinnon MD Unavailable [phone] Johnson King MD Unavailable [phone] Jewels Guy RN Unavailable [phone] Juan Antonio Pittman MD Unavailable [phone] Encounters Date Type Department Care Team Description 08/04/2024 Telephone [facility] [address] [place] [phone] Janae Eubanks MD 08/02/2024 Telephone [facility] Urgent [facility] [address] [phone] Virginia Ramos PA-C Medication Question 08/02/2024 Travel 08/02/2024 12:40 PM VICE PRESIDENT TAX Office Visit [facility] [address] [place] [phone] Virginia Ramos PA-C Acute pyelonephritis (Primary Dx) [...] on file Legal Sex Male 3:02 AM VICE PRESIDENT TAX Gender Identity Not on file Sexual Orientation Not on file 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 Not on file Not on file Last Filed Vital Signs Vital Sign Reading Time Taken Comments Blood Pressure 130/90 08/02/2024 12:02 PM VICE PRESIDENT TAX Pulse 122 08/02/2024 12:02 PM VICE PRESIDENT TAX Temperature 39.1 C (102.3 F) 08/02/2024 12:02 PM VICE PRESIDENT TAX Respiratory Rate 16 10/11/2016 5:20 PM VICE PRESIDENT TAX Oxygen Saturation 97% 08/02/2024 12:02 PM VICE PRESIDENT TAX Inhaled Oxygen Concentration - - Weight 81.6 kg (180 lb) 08/02/2024 12:02 PM VICE PRESIDENT TAX Height 167.6 cm (5' 6) 10/24/2016 8:28 AM VICE PRESIDENT TAX Body Mass Index 29.05 10/24/2016 8:28 AM VICE PRESIDENT TAX Plan of Treatment Not on file Procedures Procedure Name Priority Date/Time Associated Diagnosis Comments URINE CULTURE Routine 08/02/2024 11:10 AM VICE PRESIDENT TAX Acute pyelonephritis URINE MICROSCOPIC EXAM Routine 08/02/2024 11:10 AM VICE PRESIDENT TAX Acute pyelonephritis UA MACROSCOPIC WITH REFLEX TO MICRO AND CULTURE Routine 08/02/2024 11:10 AM VICE PRESIDENT TAX Acute pyelonephritis LIPID REFLEX TO DIRECT LDL PANEL Routine 09/09/2022 9:33 AM VICE PRESIDENT TAX Type 2 diabetes mellitus with hyperglycemia (H) Hyperlipidemia, unspecified COMPREHENSIVE METABOLIC PANEL Routine 09/09/2022 9:33 AM VICE PRESIDENT TAX Type 2 diabetes mellitus with hyperglycemia (H) Hyperlipidemia, unspecified from Last 3 Months or Most Recently Relevant to Health Maintenance Results * (ABNORMAL) UA Macroscopic with reflex to Microscopic and Culture - Lab Collect (08/02/2024 11:10 AMCST) Color Urine Yellow Colorless, Straw, Light Yellow, Yellow 08/02/2024 11:14 AM VICE PRESIDENT TAX LABORATORY Appearance Urine Clear Clear 08/02/20 24 11:14 AM VICE PRESIDENT TAX LABORATORY Glucose Urine Negative Negative mg/dL 08/02/2024 11:14 AM VICE PRESIDENT TAX LABORATORY Bilirubin Urine Negative Negative 11:14 AM VICE PRESIDENT [facility]AX LABORATORY Ketones Urine Negative Negative mg/dL 08/02/2024 11:14 AM VICE PRESIDENT TAX LABORATORY Specific [place] Urine 1.020 1.003 - 1.035 08/02/2024 11:14 AM VICE PRESIDENT TAX LABORATORY Blood Urine Moderate(A) Negative 08/02/2024 11:14 AM VICE PRESIDENT TAX LABORATORY pH Urine 6.5 5.0 - 7.0 08/02/2024 11:14 AM VICE PRESIDENT TAX LABORATORY Protein Albumin Urine >=300(A) Negative mg/dL 08/02/2024 11:14 AM VICE PRESIDENT TAX LABORATORY Urobilinogen Urine 0.2 0.2, 1.0 E.U./dL 08/02/2024 11:14 AM VICE PRESIDENT TAX LABORATORY Nitrite Urine Positive(A) Negative 08/02/2024 11:14 AM VICE PRESIDENT TAX LABORATORY Leukocyte Esterase Urine Small(A) Negative 08/02/2024 11:14 AM VICE PRESIDENT TAX LABORATORY Urine MID-STREAM URINE SPECIMEN / Unknown Non-blood Collection / Unknown 08/02/2024 11:10 AM VICE PRESIDENT TAX 08/02/2024 11:10 AM VICE PRESIDENT TAX us Virginia Ramos PA-C LAB - URINE ORDERABLES Final R esult LABORATORY [facility] Lab [address] [facility] Lab (no room number, 1st floor of [facility]) [address] * (ABNORMAL) Urine Microscopic Exam (08/02/2024 11:10 AM VICE PRESIDENT TAX) Bacteria Urine Moderate(A ) None Seen /HPF DEYSI 08/02/2024 11:16 AM VICE PRESIDENT TAX LABORATORY RBC Urine 0-2 0-2 /HPF /HPF DEYSI 08/02/2024 11:16 AM VICE PRESIDENT TAX LV LABORATORY WBC Urine 50-100(A) 0-5 /HPF /HPF DEYSI 08/02/2024 11:16 AM VICE PRESIDENT TAX LABORATORY Urine MID-STREAM URINE SPECIMEN / Unknown Non-blood Collection / Unknown 08/02/2024 11:10 AM VICE PRESIDENT TAX 08/02/2024 11:10 AM VICE PRESIDENT TAX us Virginia Ramos PA-C LAB - URINE ORDERABLES Final R esult LABORATORY [facility] Lab [address] [facility] Lab (no room number, 1st floor of [facility]) [address] * (ABNORMAL) Urine Culture (08/02/2024 11:10 AM VICE PRESIDENT TAX) Culture >100,000 CFU/mL Escherichia coli(A) 08/03/2024 11:24 PM VICE PRESIDENT TAX [facility] IDD LABORATORY Urine MID-STREAM URINE SPECIMEN / Unknown Non-blood Collection / Unknown 08/02/2024 11:10 AM VICE PRESIDENT TAX 08/02/2024 11:14 AM VICE PRESIDENT TAX Narrative Organism Antibiotic Method Susceptibility Escherichia coli [...] GENERAL ORDERABLES Final Result [facility] IDD LABORATORY [facility] Inf. Diseases Diag. Lab [address] [facility], [address] [place] [address] * (ABNORMAL) Lipid panel reflex to direct LDL (09/09/2022 9:33 AM VICE PRESIDENT TAX) [facility] Cholesterol 192 <200 mg/dL 09/09/2022 4:34 PM VICE PRESIDENT TAX [facility] LAB[facility] Triglycerides 165(H) <150 mg/dL 09/09/2022 4:34 PM VICE PRESIDENT TAX [facility] LAB[facility]ATORY Direct Measure HDL 44 >=40 mg/dL 09/09/2022 4:34 PM VICE PRESIDENT TAX [facility] LAB[facility] LDL Cholesterol Calculated 115(H) <=100 mg/dL 09/09/2022 4:34 PM VICE PRESIDENT TAX [facility] Non HDL Cholesterol 148(H) <130 mg/dL 09/09/2022 4:34 PM VICE PRESIDENT TAX [facility] LAB[facility]ORY Blood BLOOD SPECIMEN / Unknown Client Draw / Unknown 09/09/2022 9:33 AM VICE PRESIDENT TAX 09/09/2022 2:14 PM VICE PRESIDENT TAX Narrative [facility] LAB[facility]ORY - 09/09/2022 4:34 PM VICE PRESIDENT TAX Cholesterol Desirable: <200 mg/dL Triglycerides Normal: Less [...] - BLOOD ORDERABLES Final Result [facility] LAB[facility]AT[facility] [place] [facility] [address] [facility], [address] [place] [phone], [facility] [phone] * (ABNORMAL) Comprehensive metabolic panel (09/09/2022 9:33 AM VICE PRESIDENT TAX) Sodium 138 136 - 145 mmol/L 09/09/2022 4:34 PM VICE PRESIDENT TAX [facility] LAB[facility]ORY Potassium 4.2 3.4 - 5.3 mmol/L 09/09/2022 4:34 PM VICE PRESIDENT TAX [facility] Chloride 102 98 - 107 mmol/L 09/09/2022 4:34 PM VICE PRESIDENT TAX [facility] LAB[facility] Carbon Dioxide (CO2) 21(L) 22 - 29 mmol/L 09/09/2022 4:34 PM VICE PRESIDENT TAX [facility] LAB[facility]ORY Anion Gap 15 7 - 15 mmol/L 09/09/2022 4:34 PM VICE PRESIDENT TAX [facility] LAB[facility] Urea Nitrogen 20.5(H) 6.0 - 20.0 mg/dL 09/09/2022 4:34 PM VICE PRESIDENT TAX [facility] LAB[facility]ORY Creatinine 0.97 0.67 - 1.17 mg/dL 09/09/2022 4:34 PM VICE PRESIDENT TAX [facility] LAB[facility] Calcium 9.5 8.6 - 10.0 mg/dL 09/09/2022 4:34 PM VICE PRESIDENT TAX [facility] LAB[facility] Glucose 120(H) 70 - 99 mg/dL 09/09/2022 4:34 PM VICE PRESIDENT TAX [facility] LAB[facility] Alkaline Phosphatase 66 40 - 129 U/L 09/09/2022 4:34 PM VICE PRESIDENT TAX [facility] LAB[facility]ATORY AST 22 10 - 50 U/L 09/09/2022 4:34 PM VICE PRESIDENT TAX [facility] LAB[facility]ORY ALT 32 10 - 50 U/L 09/09/2022 4:34 PM VICE PRESIDENT TAX [facility] LAB[facility]ORY Protein Total 7.0 6.4 - 8.3 g/dL 09/09/2022 4:34 PM VICE PRESIDENT TAX [facility] LAB[facility]ORY Albumin 4.6 3.5 - 5.2 g/dL 09/09/2022 4:34 PM VICE PRESIDENT TAX [facility] LAB[facility]ORY Bilirubin Total 0.4 <=1.2 mg/dL 09/09/2022 4:34 PM VICE PRESIDENT TAX [facility] LAB[facility] GFR Estimate >90 >60 mL/min/1.7 3m2 09/09/2022 4:34 PM VICE PRESIDENT TAX [facility] Comment:Effective July 262020 eGFRcr in adults is calculated using the 2020 CKD-EPI creatinine equation which includes age and gender (Mabel et al., NEJM, DOI: 10.1056/NEGUsd5775666) Blood BLOOD SPECIMEN / Unknown Client Draw / Unknown 09/09/2022 9:33 AM VICE PRESIDENT TAX 09/09/2022 2:14 PM VICE PRESIDENT TAX us Kalpesh Mackey PA-C LAB - BLOOD ORDERABLES Final Result [facility] [place] [facility] [address] [facility], [address] [place] [address], [facility] [phone] from Last 3 Months or Most Recently Relevant to Health Maintenance Insurance [employer] Care Teams Spa Technician Relationship Specialty Start Date End Date Juan Antonio Pittman MD PCP - General Family Practice 07/25/14 Kalia Mckinnon MD Urology 08/29/16 Johnson King MD [address] [place] [address] [address] [place] [address] Urology 08/29/16 Jewels Guy, RN Registered Nurse Urology 09/27/16 Juan Antonio Pittman MD Referring Physician Family Practice 09/27/16
--- OUTSIDE RECORDS SUMMARY | 2024-08-27 07:34 | XMS_ITS | Clinical Summary ---
Author Organization [employer] [facility] Address [place], [place] [address] Care Team Providers Care Arboreal Scientist Name Role Phone Dimitri Friedman MD Primary Care Provider [phone] Allergies Active Allergy Reactions Criticality Noted Date Comments Hymenoptera Allergenic Extract Anaphylaxis 03/25 Medications lisinopril-hydro chlorothiazide 20-12.5 mg tablet (PRINIZIDE) Take by mouth once daily. Take one-half tablet daily Active Active Problems No known active problems Encounters Date Type Department Care Team Description 08/11/2024 Transcribe Orders [address] [place] [address] Self, Referral from Last 3 Months Family [...] on file Legal Sex Male 5:18 AM CARTOGRAPHIC AIDE Gender Identity Not on file Sexual Orientation [...] 167.6 cm (5' 6) 09/05/2014 10:47 AM CARTOGRAPHIC AIDE Body Mass Index 25.82 09/05/2014 10:47 AM CARTOGRAPHIC AIDE Plan of Treatment Upcoming Encounters Date Type Department Care Team (Late st Contact Info) Description 09/03/2024 8:30 AM CARTOGRAPHIC AIDE Ancillary Procedure [facility] [address] [facility] [address] [place] [address] Health Maintenance Due Date Last Done Comments [...] for age 50-64 04/25/2024 Insurance [employer] [id number] [employer] Care Teams Arboreal Scientist Relationship Specialty Start Date End Date Dimitri Friedman MD [address] [place] [address] PCP - General Family Practice 08/11/24
--- OUTSIDE RECORDS SUMMARY | 2024-08-27 07:35 | XMS_ITS | Continuity of Care Document ---
Author Name [email or web address] Address Unknown Organization Unknown Address Unknown Procedures FILTER APPLIED:Only known Procedures with Onset Date within the last 5 years Procedure Date Procedure Provider Additiona l Information Status C-REACTIVE PROTEIN (86151) Completed COMPLETE CBC W/AUTO DIFF WBC (14733) Completed ASSAY OF LIPASE (95333) Completed HEPATIC FUNCTION PANEL (13035) Completed METABOLIC PANEL TOTAL CA (21943) Completed ROUTINE VENIPUNCTURE (96612) Completed EMERGENCY DEPT VISIT LOW MDM (61263) Completed COMPREHEN METABOLIC PANEL (06497) Completed ASSAY OF PSA TOTAL (14038) Completed LIPID PANEL (09397) Comp leted ASSAY OF TROPONIN QUANT (14024) Completed THER/PROPH/DIAG INJ IV PUSH (79064) Completed THER/PROPH/DIAG INJ SC/IM (42487) Completed ROUTINE VENIPUNCTURE (60939) Completed MEASURE BLOOD OXYGEN LEVEL (89404) Completed ELECTROCARDIOGRAM TRACING (63457) Completed TX/PRO/DX INJ NEW DRUG ADDON (19922) Completed EMERGENCY DEPT VISIT MOD MDM (15867) Completed Encounters FILTER APPLIED:Only known Encounters with Admission Date within the last 5 years Encounter Location Admission Discharge Billing Code Color Repairer Lizbeth bryan Emergency [facility]
--- OUTSIDE RECORDS SUMMARY | 2024-08-27 07:35 | XMS_ITS | Referral Summary ---
Author Organization [facility] Address [address] [place] [address] Care Team Providers Care Printing Roller Polisher Name Role Phone Unavailable Primary Care Provider Unavailabl e Source Comments Patient records contain information from all sites at [facility]. For routine questions regarding patient records, call [phone] during business hours, M-F 8:00 AM - 5:00 PM Central Time. Record requests for emergency care only can be directed to [phone] at any time.[facility] Allergies Active Allergy Reactions Criticality Noted Date [...] Years Used Date Smoking Tobacco: Never Assessed [facility] Utilities Answer Date Recorded In the past 12 months has th e [employer], gas, oil, or water [email or web address] threatened to shut off services in your [...] your living situation today? 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
--- OUTSIDE RECORDS SUMMARY | 2024-08-27 07:35 | XMS_ITS | Encounter Summary ---
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
--- OUTSIDE RECORDS SUMMARY | 2024-08-27 07:35 | XMS_ITS ---
Author Organization [facility] Address [address] [place] [address] Care Team Providers Care Java Web Architect Name Role Phone Unavailable Unavailable Unavailable Surgery Details Not on file Complications Check Surgery Details section. Procedure Estimated Blood Loss Check Surgery Details section. Procedure Findings Check Surgery Details section. Procedure Specimens Taken Check Surgery Details section.
--- OUTSIDE RECORDS SUMMARY | 2024-08-27 07:35 | XMS_ITS | Clinical Summary ---
Author Organization [facility] Address [address] [place] [address] Care Team Providers Care Peer Financial Counselor Name Role Phone Unavailable Primary Care Provider Unavailabl e Source Comments Patient records contain information from all sites at [facility]. For routine questions regarding patient records, call [phone] during business hours, M-F 8:00 AM - 5:00 PM Central Time. Record requests for emergency care only can be directed to [phone] at any time.[facility] Allergies Active Allergy Reactions Criticality Noted [...] Years Used Date Smoking Tobacco: Never Assessed [facility] Utilities Answer Date Recorded In the past 12 months has th e [employer], gas, oil, or water [employer] threatened to shut off services in your [...] your living situation today? 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
--- OUTSIDE RECORDS SUMMARY | 2024-08-27 07:35 | XMS_ITS | Encounter Summary ---
Author Organization [place] Address [facility] [place] [address] Care Team Providers Care Autopsy Assistant Name Role Phone Juan Antonio Pittman MD Primary Care Provider [phone] Kalia Mckinnon MD Unavailable [phone] Johnson King MD Unavailable [phone] Jewels Guy RN Unavailable [phone] Juan Antonio Pittman MD Unavailable [phone] Reason for Visit * Reason Onset Date Comments Medication Question 08/02/2024 Encounter Details Date Type Department Care Team (Late st Contact Info) Description 08/02/2024 Telephone [facility] [address] [address] Virginia Ramos PA-C [facility] [id number] [place] [address] Medication Question Social History Tobacco Use [...] on file 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 Patient is at his pharmacy, pharmacist is wondering if ok to take Cipro along with Simvastatin the patient is also currently taking. Will forward to Urgent Care pool. NG ROOM SUPERVISOR documented in this encounter Plan of Treatment Not on file documented as of this encounter Visit Diagnoses Not on filedocumented in this encounter Care Teams Autopsy Assistant Relationship Specialty Start Date End Date Juan Antonio Pittman MD PCP - General Family Practice 07/25/14 Kalia Mckinnon MD Urology 08/29/16 Johnson King MD [address] [place] [address] Urology 08/29/16 Jewels Guy, RN Registered Nurse Urology 09/27/16 Juan Antonio Pittman MD Referring Physician Family Practice 09/27/16 documented as of this encounter
--- OUTSIDE RECORDS SUMMARY | 2024-08-27 07:35 | XMS_ITS | Encounter Summary ---
Author Organization [employer] Address [address] [place] [address] Care Team Providers Care Central Supply Manager Name Role Phone Juan Antonio Pittman MD Primary Care Provider [phone] Kalia Mckinnon MD Unavailable [phone] Johnson King MD Unavailable [phone] Jewels Guy RN Unavailable [phone] Juan Antonio Pittman MD Unavailable [phone] Reason for Referral * Clinically Administered Medications (Routine) - Closed Specialty Diagnoses / Procedures Referred By Contdoyle t Referred To Contact Urgent Care Diagnoses Urinary problem Procedures ZZC CEFTRIAXONE NA INJ /250MG Virginia Ramos PA-C [facility] [address] [place] [address] Phone: tel: fax: [facility] Urgent [facility] [id number] [place] [phone] Phone: tel: fax: Referral ID Status Reason Start Date Expiration Date Visits Re quested Visits Authorized [id number] Closed 08/02/2024 08/02/2025 1 1 ICATIONS SALES REPRESENTATIVE Reason for Visit * Reason Comments Urgent [...] CEFTRIAXONE NA INJ /250MG Virginia Ramos PA-C [address] [address] Phone: tel: fax: [facility] [id number] [place] [phone] Phone: tel: fax: Referral ID Status Reason Start Date Expiration Date Visits Re quested Visits Authorized [id number] Closed 08/02/2024 08/02/2025 1 1 Encounter Details Date Type Department Care Team (Latest Contact Info) Description 08/02/2024 12:40 PM PUBLICATIONS SALES REPRESENTATIVE Office Visit [facility] [id number] [place] [phone] Virginia Ramos PA-C [address] [address] Acute pyelonephritis (Primary Dx) Social History Tobacco [...] on file Legal Sex Male 3:02 AM PUBLICATIONS SALES REPRESENTATIVE Gender Identity Not on file Sexual Orientation [...] Comments Blood Pressure 130/90 08/02/2024 12:02 PM PUBLICATIONS SALES REPRESENTATIVE Pulse 122 08/02/2024 12:02 PM PUBLICATIONS SALES REPRESENTATIVE Temperature 39.1 C (102.3 F) 08/02/2024 12:02 PM PUBLICATIONS SALES REPRESENTATIVE Respiratory Rate - - Oxygen Saturation 97% 08/02/2024 12:02 PM PUBLICATIONS SALES REPRESENTATIVE Inhaled Oxygen Concentration - - Weight 81.6 kg (180 lb) 08/02/2024 12:02 PM PUBLICATIONS SALES REPRESENTATIVE Height - - Body Mass Index 29.05 10/24/2016 8:28 AM PUBLICATIONS SALES REPRESENTATIVE documented in this encounter Patient Instructions * Patient Instructions* Virginia Ramos PA-C - 08/02/2024 12:40 PM PUBLICATIONS SALES REPRESENTATIVE Patient was educated on the natural course of condition. Take medication as directed. Side effects discussed. Conservative measures include drinking fluids (water). See your primary care provider if symptoms do not improve in 1 to 2 days. Seek emergency care immediately if your symptoms worsen or fever does not improve in 24 hours. ICATIONS SALES REPRESENTATIVE ICATIONS SALES REPRESENTATIVE * Attachments The following attachments cannot be sent through Care Everywhere. * Pyelonephritis (Greek) documented in this encounter Progress Notes * [...] Negative Ketones Urine Negative Negative mg/dL Specific [place] Urine 1.020 1.003 - 1.035 Blood Urine [...] Ramos PA-C on 08/02/2024 at 1:07 PM ICATIONS SALES REPRESENTATIVE documented in this encounter Plan of Treatment Not on file documented as of this encounter Procedures Procedure Name Priority Date/Time Associated Diagnosis Comments UA MACROSCOPIC WITH REFLEX TO MICRO AND CULTURE Routine 08/02/2024 11:10 AM PUBLICATIONS SALES REPRESENTATIVE Acute pyelonephritis URINE MICROSCOPIC EXAM Routine 08/02/2024 11:10 AM PUBLICATIONS SALES REPRESENTATIVE Acute pyelonephritis URINE CULTURE Routine 08/02/2024 11:10 AM PUBLICATIONS SALES REPRESENTATIVE Acute pyelonephritis documented in this encounter Results * (ABNORMAL) Urine Culture (08/02/2024 11:10 AM PUBLICATIONS SALES REPRESENTATIVE) Culture >100,000 CFU/mL Escherichia coli(A) 08/03/2024 11:24 PM PUBLICATIONS SALES REPRESENTATIVE [facility] Urine MID-STREAM URINE SPECIMEN / Unknown Non-blood Collection / Unknown 08/02/2024 11:10 AM PUBLICATIONS SALES REPRESENTATIVE 08/02/2024 11:14 AM PUBLICATIONS SALES REPRESENTATIVE Narrative Organism Antibiotic Method Susceptibility Escherichia coli [...] Escherichia coli Trimethoprim/Sulfamethoxazole DEYSI <=1/19 ug/mL: Susceptible [employer] LAB - MICRO GENERAL ORDERABLES Final Result [facility]. [facility] Di[facility]. [facility] [address] [facility] [place] [address] * (ABNORMAL) Urine Microscopic Exam (08/02/2024 11:10 AM PUBLICATIONS SALES REPRESENTATIVE) Bacteria Urine Moderate(A ) None Seen /HPF DEYSI 08/02/2024 11:16 AM PUBLICATIONS SALES REPRESENTATIVE [facility] RBC Urine 0-2 0-2 /HPF /HPF DEYSI 08/02/2024 11:16 AM PUBLICATIONS SALES REPRESENTATIVE [facility] WBC Urine 50-100(A) 0-5 /HPF /HPF DEYSI 08/02/2024 11:16 AM PUBLICATIONS SALES REPRESENTATIVE [facility] Urine MID-STREAM URINE SPECIMEN / Unknown Non-blood Collection / Unknown 08/02/2024 11:10 AM PUBLICATIONS SALES REPRESENTATIVE 08/02/2024 11:10 AM PUBLICATIONS SALES REPRESENTATIVE [employer] PA-C LAB - URINE ORDERABLES Final R esult [facility] [address] [facility] (no room number, 1st floor of clinic) [place] [address], [facility] * (ABNORMAL) UA Macroscopic with reflex to Microscopic and Culture - Lab Collect (08/02/2024 11:10 AMCST) Color Urine Yellow Colorless, Straw, Light Yellow, Yellow 08/02/2024 11:14 AM PUBLICATIONS SALES REPRESENTATIVE LABORATORY Appearance Urine Clear Clear 08/02/20 24 11:14 AM PUBLICATIONS SALES REPRESENTATIVE [facility] Glucose Urine Negative Negative mg/dL 08/02/2024 11:14 AM PUBLICATIONS SALES REPRESENTATIVE [facility] Bilirubin Urine Negative Negative 11:14 AM PUBLICATIONS SALES REPRESENTATIVE LABORATORY Ketones Urine Negative Negative mg/dL 08/02/2024 11:14 AM PUBLICATIONS SALES REPRESENTATIVE LABORATORY Specific [place] Urine 1.020 1.003 - 1.035 08/02/2024 11:14 AM PUBLICATIONS SALES REPRESENTATIVE LABORATORY Blood Urine Moderate(A) Negative 08/02/2024 11:14 AM PUBLICATIONS SALES REPRESENTATIVE LABORATORY pH Urine 6.5 5.0 - 7.0 08/02/2024 11:14 AM PUBLICATIONS SALES REPRESENTATIVE LABORATORY Protein Albumin Urine >=300(A) Negative mg/dL 08/02/2024 11:14 AM PUBLICATIONS SALES REPRESENTATIVE LABORATORY Urobilinogen Urine 0.2 0.2, 1.0 E.U./dL 08/02/2024 11:14 AM PUBLICATIONS SALES REPRESENTATIVE LABORATORY Nitrite Urine Positive(A) Negative 08/02/2024 11:14 AM PUBLICATIONS SALES REPRESENTATIVE LABORATORY Leukocyte Esterase Urine Small(A) Negative 08/02/2024 11:14 AM PUBLICATIONS SALES REPRESENTATIVE LABORATORY Urine MID-STREAM URINE SPECIMEN / Unknown Non-blood Collection / Unknown 08/02/2024 11:10 AM PUBLICATIONS SALES REPRESENTATIVE 08/02/2024 11:10 AM PUBLICATIONS SALES REPRESENTATIVE us Virginia Ramos PA-C LAB - URINE ORDERABLES Final R esult [facility] [address] [facility] Lab (no room number, 1st floor of clinic) [place] [address] documented in this encounter Visit [...] nary Tract Infection $Given 08/02/2024 12:39 PM PUBLICATIONS SALES REPRESENTATIVE 1,000 mg Right Ventrogluteal documented in this encounter Care Teams Central Supply Manager Relationship Specialty Start Date End Date Juan Antonio Pittman MD PCP - General Family Practice 07/25/14 Kalia Mckinnon MD Urology 08/29/16 Johnson King MD [address] [place] [address] [address] [place], [place] [id number] Urology 08/29/16 Jewels Guy, [place] Registered Nurse Urology 09/27/16 Juan Antonio Pittman MD Referring Physician Family Practice 09/27/16 documented as of this encounter
[2024-08-27 11:25] VITALS: BP 138/87; PULSE 71; RESP 16; TEMP 36.4; O2SAT 95
[2024-08-27] MEDS: SODIUM CHLORIDE 0.9 % (FLUSH) 10 ML SYRINGE IVF ×2 (11:38→12:12)
[2024-08-27] MEDS: ERTAPENEM 1 GM in 0.9 % SODIUM CHLORIDE Mini-bag 100 ML IVPB (11:39)
[2024-08-28] MEDS: ERTAPENEM 1 GM in 0.9 % SODIUM CHLORIDE Mini-bag 100 ML IVPB (11:27)
[2024-08-28 11:39] VITALS: BP 133/78; PULSE 74; RESP 16; TEMP 36.6; O2SAT 97
[2024-08-29 11:10] VITALS: BP 137/93; PULSE 72; RESP 16; TEMP 36.7; O2SAT 96
[2024-08-29] MEDS: ERTAPENEM 1 GM in 0.9 % SODIUM CHLORIDE Mini-bag 100 ML IVPB (11:20)
[2024-08-29] MEDS: SODIUM CHLORIDE 0.9 % (FLUSH) 10 ML SYRINGE IVF (11:21)
[2024-08-30 11:23] VITALS: BP 135/88; PULSE 70; RESP 16; TEMP 36.3; O2SAT 96
[2024-08-30] MEDS: SODIUM CHLORIDE 0.9 % (FLUSH) 10 ML SYRINGE IVF ×2 (11:42→12:16)
[2024-08-30] MEDS: ERTAPENEM 1 GM in 0.9 % SODIUM CHLORIDE Mini-bag 100 ML IVPB (11:43)
[2024-08-31] MEDS: ERTAPENEM 1 GM in 0.9 % SODIUM CHLORIDE Mini-bag 100 ML IVPB (11:12)
[2024-08-31] MEDS: SODIUM CHLORIDE 0.9 % (FLUSH) 10 ML SYRINGE IVF ×2 (11:13→11:48)
[2024-08-31 11:14] VITALS: BP 148/94; PULSE 71; RESP 16; TEMP 36.6; O2SAT 97
[2024-09-01 11:15] VITALS: BP 160/89; PULSE 75; RESP 16; TEMP 36.4; O2SAT 97
[2024-09-01] MEDS: ERTAPENEM 1 GM in 0.9 % SODIUM CHLORIDE Mini-bag 100 ML IVPB (11:26)
[2024-09-01] MEDS: SODIUM CHLORIDE 0.9 % (FLUSH) 10 ML SYRINGE IVF (11:26)
[2024-09-02 11:42] VITALS: BP 149/92; PULSE 75; RESP 16; TEMP 35.9; O2SAT 96
[2024-09-02] MEDS: ERTAPENEM 1 GM in 0.9 % SODIUM CHLORIDE Mini-bag 100 ML IVPB (11:47)
[2024-09-02] MEDS: SODIUM CHLORIDE 0.9 % (FLUSH) 10 ML SYRINGE IVF ×2 (11:47→12:20)
[2024-09-03 11:32] VITALS: BP 145/90; PULSE 70; RESP 16; TEMP 36.4; O2SAT 96
[2024-09-03] MEDS: SODIUM CHLORIDE 0.9 % (FLUSH) 10 ML SYRINGE IVF ×2 (11:36→12:09)
[2024-09-03] MEDS: ERTAPENEM 1 GM in 0.9 % SODIUM CHLORIDE Mini-bag 100 ML IVPB (11:36)
[2024-09-04] MEDS: ERTAPENEM 1 GM in 0.9 % SODIUM CHLORIDE Mini-bag 100 ML IVPB (11:20)
[2024-09-04] MEDS: SODIUM CHLORIDE 0.9 % (FLUSH) 10 ML SYRINGE IVF (11:22)
[2024-09-04 15:38] VITALS: BP 139/67; PULSE 70; RESP 16; TEMP 36.4; O2SAT 96
[2024-09-05] MEDS: ERTAPENEM 1 GM in 0.9 % SODIUM CHLORIDE Mini-bag 100 ML IVPB (11:17)
[2024-09-05] MEDS: SODIUM CHLORIDE 0.9 % (FLUSH) 10 ML SYRINGE IVF (11:19)
[2024-09-06 11:14] VITALS: BP 136/85; PULSE 82; RESP 16; TEMP 35.8; O2SAT 97
[2024-09-06] MEDS: SODIUM CHLORIDE 0.9 % (FLUSH) 10 ML SYRINGE IVF ×2 (11:30→12:21)
[2024-09-06] MEDS: ERTAPENEM 1 GM in 0.9 % SODIUM CHLORIDE Mini-bag 100 ML IVPB (11:45)
[2024-09-07 11:30] VITALS: BP 140/91; PULSE 76; RESP 15; TEMP 36.8; O2SAT 97
[2024-09-07] MEDS: ERTAPENEM 1 GM in 0.9 % SODIUM CHLORIDE Mini-bag 100 ML IVPB (11:40)
[2024-09-07] MEDS: SODIUM CHLORIDE 0.9 % (FLUSH) 10 ML SYRINGE IVF (13:20)
[2024-09-08 11:10] VITALS: BP 147/88; PULSE 75; RESP 16; TEMP 36.5; O2SAT 97
[2024-09-08] MEDS: ERTAPENEM 1 GM in 0.9 % SODIUM CHLORIDE Mini-bag 100 ML IVPB (11:24)
[2024-09-08] MEDS: SODIUM CHLORIDE 0.9 % (FLUSH) 10 ML SYRINGE IVF (11:25)
[2024-09-09 11:12] VITALS: BP 142/93; PULSE 68; RESP 16; TEMP 36.1; O2SAT 95
[2024-09-09] MEDS: SODIUM CHLORIDE 0.9 % (FLUSH) 10 ML SYRINGE IVF ×2 (11:20→11:53)
[2024-09-09] MEDS: ERTAPENEM 1 GM in 0.9 % SODIUM CHLORIDE Mini-bag 100 ML IVPB (11:21)
[2024-09-10 14:14] VITALS: BP 142/95; PULSE 75; RESP 16; TEMP 36.1; O2SAT 97
[2024-09-10] MEDS: ERTAPENEM 1 GM in 0.9 % SODIUM CHLORIDE Mini-bag 100 ML IVPB (14:25)
[2024-09-10] MEDS: SODIUM CHLORIDE 0.9 % (FLUSH) 10 ML SYRINGE IVF ×2 (14:25→14:57)
[2024-09-11] MEDS: ERTAPENEM 1 GM in 0.9 % SODIUM CHLORIDE Mini-bag 100 ML IVPB (14:20)
[2024-09-11] MEDS: SODIUM CHLORIDE 0.9 % (FLUSH) 10 ML SYRINGE IVF (14:20)
[2024-09-11 14:40] VITALS: BP 147/91; PULSE 79; RESP 18; TEMP 36.6; O2SAT 95
[2024-09-12 14:10] VITALS: BP 142/93; PULSE 79; RESP 16; TEMP 36.6; O2SAT 97
[2024-09-12] MEDS: ERTAPENEM 1 GM in 0.9 % SODIUM CHLORIDE Mini-bag 100 ML IVPB (14:16)
[2024-09-12] MEDS: SODIUM CHLORIDE 0.9 % (FLUSH) 10 ML SYRINGE IVF (14:20)
[2024-09-13 14:19] VITALS: BP 147/94; PULSE 96; RESP 16; TEMP 36.1; O2SAT 96
[2024-09-13] MEDS: ERTAPENEM 1 GM in 0.9 % SODIUM CHLORIDE Mini-bag 100 ML IVPB (14:28)
[2024-09-13] MEDS: SODIUM CHLORIDE 0.9 % (FLUSH) 10 ML SYRINGE IVF (14:29)
[2024-09-14] MEDS: ERTAPENEM 1 GM in 0.9 % SODIUM CHLORIDE Mini-bag 100 ML IVPB (13:46)
[2024-09-14 13:48] VITALS: BP 138/87; PULSE 83; RESP 16; TEMP 36.1; O2SAT 97
[2024-09-14] MEDS: SODIUM CHLORIDE 0.9 % (FLUSH) 10 ML SYRINGE IVF (13:48)
[2024-09-15 13:51] VITALS: BP 134/91; PULSE 86; RESP 16; TEMP 36.3; O2SAT 96
[2024-09-15] MEDS: ERTAPENEM 1 GM in 0.9 % SODIUM CHLORIDE Mini-bag 100 ML IVPB (14:00)
--- NOTE | 2024-09-15 14:28 | ONC.NURNOTE ---
Called Dr Hernandez clinic to inquire about lab monitoring while patient is on Ertapenem. PCR stated she will get the message to his nurse and have her call us back.
--- NOTE | 2024-09-16 08:09 | ONC.NURNOTE ---
Called [facility] to follow up on lab monitoring during Ertapenem infusions. Per the reception interviewer desk, there are no nurses in today as Dr. Friedman is off. Industrial Maintenance Manager asked if they could run this past the Transportation Technician. She was going to check with her once she arrives.
--- NOTE | 2024-09-16 08:42 | ONC.NURNOTE ---
On 09/15/24 @ 16:33 Dimitri Friedman Wrote To Elder Nurse Please inform Monica that patient would benefit from rechecking his creatinine.? If his creatinine is 1.3 or lower, we should not need to monitor the drug levels.? I did put in an order for future labs to include BMP.? Thank her for initiating this question
[2024-09-16] MEDS: ERTAPENEM 1 GM in 0.9 % SODIUM CHLORIDE Mini-bag 100 ML IVPB (13:54)
[2024-09-16 14:01] VITALS: BP 123/85; PULSE 75; RESP 16; TEMP 36.9; O2SAT 95
[2024-09-16 14:24] LABS: Chloride* 102 mmol/L (96-114); Potassium* 3.8 mmol/L (3.6-5.1); Sodium* 135 mmol/L (135-149)
[2024-09-16] MEDS: SODIUM CHLORIDE 0.9 % (FLUSH) 10 ML SYRINGE IVF (14:26)
[2024-09-16 14:27] LABS: Anion Gap 8 mEq/L (7-15); Carbon Dioxide* 25 mmol/L (20-32); Creatinine* 0.7 mg/dL (0.5-1.5); Estimated Glomerular Filt Rate 107 ml/min
[2024-09-16 14:28] LABS: Blood Urea Nitrogen* 16 mg/dL (7-30); Glucose* 214 mg/dL (60-115)
--- NOTE | 2024-09-16 14:47 | ONC.NURNOTE ---
Called lab results to patient. Per Dr. Friedman's note, if creatinine in less than 1.3, no need to monitor labs unless there is a concern. Creatinine is 0.7. Patient agreeable to this plan.
[2024-09-17] MEDS: ERTAPENEM 1 GM in 0.9 % SODIUM CHLORIDE Mini-bag 100 ML IVPB (14:01)
[2024-09-17] MEDS: SODIUM CHLORIDE 0.9 % (FLUSH) 10 ML SYRINGE IVF ×2 (14:01→14:33)
[2024-09-17 14:03] VITALS: BP 144/91; PULSE 75; RESP 16; TEMP 36.2; O2SAT 96
[2024-09-18] MEDS: ERTAPENEM 1 GM in 0.9 % SODIUM CHLORIDE Mini-bag 100 ML IVPB (13:49)
[2024-09-18 14:02] VITALS: BP 133/91; PULSE 76; RESP 16; TEMP 37.2; O2SAT 96
--- NOTE | 2024-09-18 14:27 | PC.NURSE ---
Patient presented to [facility] for outpatient infusion of Ertapenem. LUE PICC line patent & dressing C/D/I, no blood return noted. Pt denies having any pain, nausea, or SOB. VSS and afebrile. Pt presented via ambulatory and tolerated infusion well, no side effects noted. Pt was escorted out at time of infusion completion.
[2024-09-19 13:40] VITALS: BP 133/91; PULSE 76; RESP 16; TEMP 36.7; O2SAT 94
[2024-09-19] MEDS: ERTAPENEM 1 GM in 0.9 % SODIUM CHLORIDE Mini-bag 100 ML IVPB (13:44)
[2024-09-19] MEDS: SODIUM CHLORIDE 0.9 % (FLUSH) 10 ML SYRINGE IVF (13:45)
[2024-09-20] MEDS: ERTAPENEM 1 GM in 0.9 % SODIUM CHLORIDE Mini-bag 100 ML IVPB (13:08)
[2024-09-20] MEDS: SODIUM CHLORIDE 0.9 % (FLUSH) 10 ML SYRINGE IVF ×2 (13:08→13:38)
[2024-09-21 11:28] VITALS: BP 148/90; PULSE 73; RESP 16; TEMP 36.6; O2SAT 97
[2024-09-21] MEDS: ERTAPENEM 1 GM in 0.9 % SODIUM CHLORIDE Mini-bag 100 ML IVPB (11:52)
[2024-09-21] MEDS: SODIUM CHLORIDE 0.9 % (FLUSH) 10 ML SYRINGE IVF ×2 (11:52→12:46)
[2024-09-22 11:53] VITALS: BP 144/94; PULSE 73; RESP 17; TEMP 36.2; O2SAT 97
[2024-09-22] MEDS: ERTAPENEM 1 GM in 0.9 % SODIUM CHLORIDE Mini-bag 100 ML IVPB (12:10)
[2024-09-22] MEDS: SODIUM CHLORIDE 0.9 % (FLUSH) 10 ML SYRINGE IVF ×2 (12:10→12:43)
[2024-09-23 11:44] VITALS: BP 144/91; PULSE 76; RESP 16; TEMP 36.7; O2SAT 95
[2024-09-23] MEDS: ERTAPENEM 1 GM in 0.9 % SODIUM CHLORIDE Mini-bag 100 ML IVPB (11:58)
[2024-09-23] MEDS: SODIUM CHLORIDE 0.9 % (FLUSH) 10 ML SYRINGE IVF ×2 (11:59→12:30)
[2024-09-24 11:21] VITALS: BP 138/89; PULSE 74; RESP 17; TEMP 36.8; O2SAT 95
[2024-09-24] MEDS: ERTAPENEM 1 GM in 0.9 % SODIUM CHLORIDE Mini-bag 100 ML IVPB (11:44)
[2024-09-24] MEDS: SODIUM CHLORIDE 0.9 % (FLUSH) 10 ML SYRINGE IVF (11:44)
[2024-09-25] MEDS: ERTAPENEM 1 GM in 0.9 % SODIUM CHLORIDE Mini-bag 100 ML IVPB (13:45)
[2024-09-25 13:47] VITALS: BP 142/91; PULSE 72; RESP 18; O2SAT 96
--- NOTE | 2024-09-25 14:36 | PC.NURSE ---
shift note: vss stable. picc line patent with flush. juan antoniog c/d/i. Pt tolerated infusion w/o s/e
[2024-09-26 10:45] VITALS: BP 137/91; PULSE 72; RESP 16; TEMP 36.8; O2SAT 96
[2024-09-26] MEDS: ERTAPENEM 1 GM in 0.9 % SODIUM CHLORIDE Mini-bag 100 ML IVPB (10:50)
[2024-09-26] MEDS: SODIUM CHLORIDE 0.9 % (FLUSH) 10 ML SYRINGE IVF ×2 (10:50→11:45)
[2024-09-27 11:38] VITALS: BP 149/94; PULSE 79; RESP 18; TEMP 36.9; O2SAT 96
[2024-09-27] MEDS: ERTAPENEM 1 GM in 0.9 % SODIUM CHLORIDE Mini-bag 100 ML IVPB (11:56)
[2024-09-27] MEDS: SODIUM CHLORIDE 0.9 % (FLUSH) 10 ML SYRINGE IVF ×2 (11:56→12:28)
[2024-09-28 11:19] VITALS: BP 138/91; PULSE 68; RESP 18; TEMP 36.3; O2SAT 97
[2024-09-28] MEDS: ERTAPENEM 1 GM in 0.9 % SODIUM CHLORIDE Mini-bag 100 ML IVPB (11:23)
[2024-09-28] MEDS: SODIUM CHLORIDE 0.9 % (FLUSH) 10 ML SYRINGE IVF ×2 (11:24→11:56)
[2024-09-29 11:21] VITALS: BP 150/94; PULSE 66; RESP 19; TEMP 36.3; O2SAT 97
[2024-09-29] MEDS: SODIUM CHLORIDE 0.9 % (FLUSH) 10 ML SYRINGE IVF ×2 (11:41→12:15)
[2024-09-29] MEDS: ERTAPENEM 1 GM in 0.9 % SODIUM CHLORIDE Mini-bag 100 ML IVPB (11:42)
[2024-09-30 11:28] VITALS: BP 143/84; PULSE 71; RESP 16; TEMP 36.5; O2SAT 95
[2024-09-30] MEDS: SODIUM CHLORIDE 0.9 % (FLUSH) 10 ML SYRINGE IVF ×2 (11:46→12:36)
[2024-09-30] MEDS: ERTAPENEM 1 GM in 0.9 % SODIUM CHLORIDE Mini-bag 100 ML IVPB (11:46)
[2024-10-01 11:18] VITALS: BP 147/94; PULSE 68; RESP 16; TEMP 36.4; O2SAT 97
[2024-10-01] MEDS: SODIUM CHLORIDE 0.9 % (FLUSH) 10 ML SYRINGE IVF ×2 (11:31→12:04)
[2024-10-01] MEDS: ERTAPENEM 1 GM in 0.9 % SODIUM CHLORIDE Mini-bag 100 ML IVPB (11:32)
--- NOTE | 2024-10-01 12:25 | ONC.NURNOTE ---
Patient in clinic today for IV ABX. On assessment patient reports that he is having an increase in belly pain today, has been a 3 and up to a 5 today. Does feel an increase in bloating and is having pain with movement. He also reports that this morning he had feces in his urine. Patient reports that he has a call into his PCP and is waiting for a call back. RN advised patient that he should also call his surgeon. At the end of fish receiver reiterated with patient that if he has an increase in his pain or he develops a fever he needs to be seen in ER [facility]. Advised him to go [facility] as that is where surgery is planned. Patient verbalized understanding and agreeable to the plan.
[2024-10-02 10:37] VITALS: BP 142/94; PULSE 70; RESP 16; TEMP 36.7; O2SAT 96
[2024-10-02] MEDS: ERTAPENEM 1 GM in 0.9 % SODIUM CHLORIDE Mini-bag 100 ML IVPB (10:39)
[2024-10-02] MEDS: SODIUM CHLORIDE 0.9 % (FLUSH) 10 ML SYRINGE IVF (10:40)
[2024-10-03] MEDS: ERTAPENEM 1 GM in 0.9 % SODIUM CHLORIDE Mini-bag 100 ML IVPB (10:45)
[2024-10-03 10:46] VITALS: BP 140/92; PULSE 71; RESP 18; TEMP 37; O2SAT 96
[2024-10-04 10:14] VITALS: BP 146/89; PULSE 66; RESP 16; TEMP 36.3; O2SAT 98
[2024-10-04] MEDS: SODIUM CHLORIDE 0.9 % (FLUSH) 10 ML SYRINGE IVF (10:29)
[2024-10-04] MEDS: ERTAPENEM 1 GM in 0.9 % SODIUM CHLORIDE Mini-bag 100 ML IVPB (10:30)
== END 2025-02-20 23:59 | disposition home or self-care (01) ==
LOC: CCIC 10:30
PROVIDERS: PCP Family Medicine; Referring Provider Family Medicine; Visit Provider Clinical Nurse Specialist
DX: N39.0 Urinary tract infection, site not specified (principal)
CPT/HCPCS: 36415; 36573; 36592; 71045; 80048; 96365; 96366; G0463; A4221; C1751; J1335; J7030

== ENCOUNTER 2025-08-09 10:22 | Outpatient (CLI) | payer OTHER, SELFPAY | END 2025-08-09 10:23 | disposition home or self-care (01) | PROVIDERS: PCP Family Medicine; Visit Provider Family Medicine | DX: E11.9 Type 2 diabetes mellitus without complications (principal); E78.5 Hyperlipidemia, unspecified; Z12.5 Encounter for screening for malignant neoplasm of prostate | CPT/HCPCS: 80048; 80061; G0103 ==